=== PATIENT | male | born 1955 | race Caucasian/White ===

== ENCOUNTER 2016-09-29 18:32 | Emergency (ER) | payer MEDICAID ==
[~2016-09-29] VITALS: Ht 165.1 cm; Wt 97.8 kg
[~2016-09-29 18:32] MED LIST: ASPI-557 PO; BUME2TAB18 PO; CARB15DR94 EACH EAR; CARV3.123 PO; CLOB15CR4 TOP; CLOP75TA33 PO; DABI150C PO; DOCU-168 PO; FAMO20TA8 PO; FERR-67 PO; FLUT1DIS ORAL INH; HYDR-347 PO; INSU100V12 SQ; INSU100V13 SQ; LEVO50TA4 PO; LISI-625 PO; LORA-204 PO; LORA0.5T2 PO; PALI9TAB PO; POLY17PO6 PO; POTA-81 PO; SIMV20TA2 PO; THIA100T8 PO; TIOT18CA3 ORAL INH; VITA1TAB21 PO
[2016-09-29 18:35] VITALS: Ht 165.1 cm; Wt 97.8 kg
--- OUTSIDE RECORDS SUMMARY | 2016-09-29 18:36 | XMS REPORT | CCD ---
Author Author SUZY MALLORY Organization Unknown Address [address], [place] [id number] Phone 0 Care Team Providers Care Settlement Processor Name Role Phone ADILENE PEREZ Attending Physician [phone] Vital Signs Unknown or Not Available. Allergies Unknown or Not Available. Procedures Unknown or Not Available. History of Immunizations Immunization Code Date pneumococcal polysaccharide PPV23 33 03/2012 pneumococcal polysaccharide PPV23 33 05/2012 Influenza, seasonal, injectable 141 05/07 Influenza, seasonal, injectable 141 05/27 Problems Unknown or Not Available. Results BASIC METABOLIC - Collect Date/Time: 01/10/2016 09:10 Test Name Code Test Result Test Units Test Ref Range GLUCOSE 353 mg/dL L=70 H=110 BUN 10 mg/dL L=7 H=18 CREATININE 0.79 mg/ dL L=0.60 H=1.30 AGE 61 YEARS GFR 99.7 SODIUM 133 mmol/L L=136 H=145 POTASSIUM 4.3 mmol/ L L=3.5 H=5.1 CHLORIDE 96 mmol/L L=98 H=107 CO2 29 mmol/L L=21 H=32 CALCIUM 8.6 mg/dL L=8.5 H=10.1 PRO B-TYPE NATRIURETIC PEPTIDE - Collect Date/Time: 01/10/2016 09:10 Test Name Code Test Result Test Units Test Ref Range PBNP 194 pg/mL L=0 H=125 Active Medications Unknown or Not Available. Medications Administered During Visit Unknown or Not Available. Encounters Encounter Diagnosis Diagnosis Code Start Date Essential (primary) hypertension I10 Social History Smoking Status Code Start Date End Date Unknown if ever smoked [id number] Patient Decision Aids Unknown or Not Available. Discharge Instructions You were admitted to [facility] on 01/10/2016 10:44 with a principal diagnosis of Essential (primary) hypertension You had the following tests done: BASIC METABOLIC PRO B-TYPE NATRIURETIC PEPTIDE You were discharged from [facility] on 01/10/2016 10:45 Should you have any questions prior to discharge, please contact a member of your healthcare team. If you have left the hospital and have any questions, please contact your primary care physician. Chief Complaint and Reason For Visit Chief Complaint Date of Onset LAB Function Status Unknown or Not Available. Plan of Care Unknown or Not Available. Referral/Transition of Care Unknown or Not Available.
--- OUTSIDE RECORDS SUMMARY | 2016-09-29 18:36 | XMS REPORT | CCD ---
Author Author SUZY MALLORY Organization Unknown Address [address], [place] [id number] Phone 0 Care Team Providers Care Manager Mental Health Name Role Phone ADILENE PEREZ Attending Physician [phone] Vital Signs Unknown or Not Available. Allergies Unknown or Not Available. Procedures Unknown or Not Available. History of Immunizations Immunization Code Date pneumococcal polysaccharide PPV23 33 03/2012 pneumococcal polysaccharide PPV23 33 05/2012 Influenza, seasonal, injectable 141 05/07 Influenza, seasonal, injectable 141 05/27 Problems Unknown or Not Available. Results TSH - Collect Date/Time: 04/03/2016 08:55 Test Name Code Test Result Test Units Test Ref Range TSH 1.17 uIU/mL L=0.36 H=3.74 Active Medications Unknown or Not Available. Medications Administered During Visit Unknown or Not Available. Encounters Encounter Diagnosis Diagnosis Code Start Date Hypothyroidism, unspecified E039 2015 Social History Smoking Status Code Start Date End Date Unknown if ever smoked [id number] Patient Decision Aids Unknown or Not Available. Discharge Instructions You were admitted to [facility] on 04/03/2016 12:01 with a principal diagnosis of Hypothyroidism, unspecified You had the following tests done: TSH You were discharged from [facility] on 04/03/2016 12:01 Should you have any questions prior to [...]
--- OUTSIDE RECORDS SUMMARY | 2016-09-29 18:38 | XMS REPORT | Referral Summary ---
Author Author [facility] Organization [facility] Address Unknown Phone Unavailable Care Team Providers Care Parts Sales Associate Name Role Phone Rivera Plascencia Primary Care Physician [phone] Encounter VC Date(s): 10/20/15 - 10/28/15 [facility] [address] [place] [address] Discharge Disposition: 01-Home or Self Care Attending Physician: Jessica Brown MD Admitting Physician: Joseph Whitehead MD Vital Signs Most recent to 1 oldest [Reference Range]: Temperature Oral 36.1 degC [35.8-37.3 degC] (10/28/15 8:00 AM) Temperature Temporal 36.2 degC Artery [36.3-37.8 *LOW* degC] (10/26/15 11:00 AM) Peripheral Pulse 75 bpm Rate [60-100 bpm] (10/28/15 8:07 AM) Heart Rate Monitored 72 bpm [60-100 bpm] (10/28/15 9:55 AM) Respiratory Rate 18 br/min [14-20 br/min] (10/28/15 9:45 AM) Blood Pressure 105/58 mmHg [90-140/60-90 mmHg] (10/28/15 8:07 AM) Mean Arterial 69 mmHg Pressure, Cuff (10/26/15 12:00 PM) Pulse Rate [60-100 81 bpm bpm] (10/27/15 5:59 PM) SpO2 94 % (10/28/15 9:45 AM) Remote Telemetry Discontinued (10/26/15 8:00 PM) Problem List Condition Effective Dates Status Health Status Informant Acute Active pain(Confirmed) ETOH Active patient abuse(Confirmed) At risk for Active falls(Confirmed)1 At risk for Active infection(Confirmed) 2 At risk for Active injury(Confirmed)3 At risk of pressure Active sore(Confirmed) Atrial Active patient fibrillation(Confirm ed) CVA (cerebral Active patient vascular accident)(Confirmed) COPD (chronic Active patient obstructive pulmonary disease)(Confirmed) CHF (congestive Active patient heart failure)(Confirmed) Coronary artery Active patient disease(Confirmed) Depression(Confirmed Active patient ) Diabetes(Confirmed) Active patient Dyspnea(Confirmed) Active patient Hyperlipidemia(Confi Active patient rmed) HTN Active patient (hypertension)(Confi rmed) Impaired gas Active exchange(Confirmed)4 Impaired skin Active integrity(Confirmed) 5 Diabetic acidosis, Active patient type II(Confirmed) Knowledge Active deficit(Confirmed)6 Methicillin Active resistant Staphylococcus aureus(Confirmed)7 Obesity(Confirmed) Active patient Schizophrenia(Confir Active patient med) Substance Active patient abuse(Confirmed) Tobacco Active patient user(Confirmed) 1This problem was added by Discern Expert. 2Problem added automatically by system based on initiation of At Risk for Infection in Nutrition Plan of Care 3Problem added automatically by system based on initiation of Risk for Injury Plan of Care 4Problem added automatically by system based on initiation of Impaired Gas Exchange Plan of Care 5Problem added automatically by system based on initiation of Impaired Skin Integrity Plan of Care 6Problem added automatically by system based on initiation of Knowledge Deficit Plan of Care 7Nares from NOT FOUND collected 10/04/15 5:23:00 CDT Allergies, Adverse Reactions, Alerts No Known Allergies Medications albuterol 5 mg/mL (0.5%) inhalation solution 2.5 mg 0.5 mL, NEB, q2hr (scheduled), Other (See Comment), # 180 mL, 0 Refill(s) , other reason (Rx) Start Date: 10/28/15 Status: Ordered albuterol 5 mg/mL (0.5%) inhalation solution 2.5 mg 0.5 mL, NEB, [id number], # 60 mL, 0 Refill(s) Start Date: 10/28/15 Status: Ordered aspirin 81 mg oral delayed release tablet 81 mg 1 tabs, Oral, Daily, 0 Refill(s) Start Date: 10/13/15 Status: Ordered Ativan 0.5 mg oral tablet 0.5 mg, Oral, BID, anxiety, X 30 days, # 60 tabs, 0 Refill(s) Start Date: 10/28/15 Stop Date: 11/27/15 Status: Ordered bumetanide 2 mg oral tablet 2 mg 1 tabs, Oral, BID, # 30 tabs, 0 Refill(s), other reason (Rx) Start Date: 10/28/15 Status: Ordered clobetasol 0.05% topical cream 1 hui, Topical, BID, 0 Refill(s) Start Date: 10/20/15 Status: Ordered Coreg 3.125 mg, Oral, BID, 0 Refill(s) Start Date: 10/03/15 Status: Ordered ferrous sulfate 325 mg (65 mg elemental iron) oral delayed release tablet 650 mg 2 tabs, Oral, Daily, 0 Refill(s) Start Date: 10/13/15 Status: Ordered ipratropium 500 mcg/2.5 mL inhalation solution 0.5 mg 2.5 mL, NEB, q2hr (scheduled), Other (See Comment), # 900 mL, 0 Refill(s) , other reason (Rx) Start Date: 10/28/15 Status: Ordered ipratropium 500 mcg/2.5 mL inhalation solution 0.5 mg 2.5 mL, NEB, [id number], # 300 mL, 0 Refill(s), other reason (Rx) Start Date: 10/28/15 Status: Ordered Levemir 100 units/mL subcutaneous solution 20 units, SubCutaneous, Bedtime (once a day), # 15 mL, 0 Refill(s), other reason (Rx) Start Date: 10/28/15 Stop Date: 11/27/15 Status: Ordered lisinopril 5 mg oral tablet 5 mg 1 tabs, Oral, Bedtime (once a day), # 30 tabs, 0 Refill(s), other reason ( Rx) Start Date: 10/28/15 Status: Ordered MiraLax oral powder for reconstitution 17 g, Oral, BID, dissolve in water before taking, X 14 days, # 476 g, 0 Refill(s ), other reason (Rx) Start Date: 10/28/15 Stop Date: 11/11/15 Status: Ordered [place] 7.5 mg-325 mg oral tablet 1 tabs, Oral, q6hr, Pain Severe (7-10), X 14 days, # 56 tabs, 0 Refill(s) Start Date: 10/28/15 Stop Date: 11/11/15 Status: Ordered NovoLOG 100 units/mL subcutaneous solution 5 units, SubCutaneous, TIDWM, # 15 mL, 0 Refill(s), other reason (Rx) Start Date: 10/28/15 Status: Ordered potassium chloride 20 mEq oral tablet, extended release 20 mEq 1 tabs, Oral, BIDWM, # 60 tabs, 0 Refill(s), other reason (Rx) Start Date: 10/28/15 Status: Ordered Pradaxa 150 mg oral capsule 150 mg 1 caps, Oral, BID, 0 Refill(s) Start Date: 10/13/15 Status: Ordered predniSONE 20 mg oral tablet See Instructions, 1 tabs Oral Daily for 3 days then half a tablet for 3 days then stop, # 4.5 tabs, 0 Refill(s), other reason (Rx) Start Date: 10/28/15 Stop Date: 11/02/15 Status: Ordered Senokot S 50 mg-8.6 mg oral tablet 2 tabs, Oral, Daily, X 14 days, # 28 tabs, 0 Refill(s), other reason (Rx) Start Date: 10/28/15 Stop Date: 11/11/15 Status: Ordered Synthroid 50 mcg, Oral, Daily, 0 Refill(s) Start Date: 10/03/15 Status: Ordered Vitamin B1 100 mg, Daily, 0 Refill(s) Start Date: 11/26/14 Status: Ordered Zocor 20 mg oral tablet 20 mg 1 tabs, Oral, Bedtime (once a day), # 30 tabs, 0 Refill(s) Start Date: 11/05/14 Status: Ordered ZyPREXA 5 mg oral tablet 5 mg 1 tabs, Oral, Bedtime (once a day), # 30 tabs, 0 Refill(s) Start Date: 10/28/15 Status: Ordered Results Blood Gases Most recent to 1 oldest [Reference Range]: pH [7.35-7.45] 7.39 (10/24/15 9:56 AM) pCO2 Art [35-45 57 mmHg mmHg] *HI* (10/24/15 9:56 AM) Bicarbonate [22-26 34 mEq/L mEq/L] *HI* (10/24/15 9:56 AM) Base Excess Art 7 [0-2] *HI* (10/24/15 9:56 AM) O2 Sat Art 93.6 % [90.0-97.0 %] (10/24/15 9:56 AM) pO2 Art [80-100 69 mmHg mmHg] *LOW* (10/24/15 9:56 AM) LPM Art 6.0 L/min (10/24/15 9:56 AM) O2 Panel Nasal Cannula (10/24/15 9:56 AM) Spec Site Radial-R (10/24/15 9:56 AM) Hematology Most recent to 1 oldest [Reference Range]: WBC [4.8-10.8 11.8 10*3/uL 10*3/uL] *HI* (10/28/15 5:29 AM) RBC [4.60-6.20] 3.40 *LOW* (10/28/15 5:29 AM) Hgb [14.0-18.0 10.8 gm/dL gm/dL] *LOW* (10/28/15 5:29 AM) Hct [42.0-52.0 %] 34.3 % *LOW* (10/28/15 5:29 AM) MCV [82.0-99.0 fL] 100.9 fL *HI* (10/28/15 5:29 AM) MCH [27.0-32.0 pg] 31.8 pg (10/28/15 5:29 AM) MCHC [32.0-36.0 31.5 gm/dL gm/dL] *LOW* (10/28/15 5:29 AM) RDW [11.5-14.5 %] 21.5 % *HI* (10/28/15 5:29 AM) Platelet [150-400 269 10*3/uL 10*3/uL] (10/28/15 5:29 AM) MPV [9.4-12.3 fL] 10.4 fL (10/28/15 5:29 AM) Immature 0.4 % Granulocytes (10/23/15 4:25 AM) [0.0-1.0 %] Neutrophils [51-75 87 % %] *HI* (10/25/15 3:25 AM) Band Man [0-8 %] 1 % (10/24/15 4:21 AM) [place] Man [0-1 %] 1 % (10/24/15 4:21 AM) Lymphocytes [20-46 12 % %] *LOW* (10/25/15 3:25 AM) Monocytes [4-11 %] 1 % *LOW* (10/25/15 3:25 AM) Eosinophils [0-4 %] 0 % (10/25/15 3:25 AM) Basophils [0-2 %] 0 % (10/25/15 3:25 AM) Neutro Absolute 9.14 10*3 [1.90-7.00 10*3] *HI* (10/25/15 3:25 AM) Lymph Absolute 1.26 10*3 [0.80-3.30 10*3] (10/25/15 3:25 AM) [place] Absolute 0.11 10*3 [0.30-1.00 10*3] *LOW* (10/25/15 3:25 AM) Eos Absolute 0.00 10*3 [0.00-0.50 10*3] (10/25/15 3:25 AM) Baso Absolute 0.00 10*3 [0.00-0.20 10*3] (10/25/15 3:25 AM) Toxic Gran Occasional *ABN* (10/25/15 3:25 AM) Dohle Bodies Occasional *ABN* (10/22/15 4:58 AM) Giant Platelets Occasional *ABN* (10/22/15 4:58 AM) Polychrom Occasional *ABN* (10/25/15 3:25 AM) Macrocyte Present *ABN* (10/24/15 4:21 AM) Stippled RBC Occasional *ABN* (10/25/15 3:25 AM) Nucleated RBC 0.0 /100 WBC Automated [0 /100 (10/25/15 3:25 AM) WBC] Differential Manual *ABN* (10/25/15 3:25 AM) Chemistry Most recent to 1 oldest [Reference Range]: Sodium Lvl [136-144 140 mEq/L mEq/L] (10/28/15 5:29 AM) Potassium Lvl 4.0 mEq/L [3.6-5.1 mEq/L] (10/28/15 5:29 AM) Chloride [99-109 100 mEq/L mEq/L] (10/28/15 5:29 AM) CO2 [22-32 mEq/L] 32 mEq/L (10/28/15 5:29 AM) AGAP [3-20] 8 (10/28/15 5:29 AM) BUN [4-20 mg/dL] 17 mg/dL (10/28/15 5:29 AM) Glucose Lvl [70-100 172 mg/dL mg/dL] *HI* (10/28/15 5:29 AM) Creatinine Lvl 0.82 mg/dL [0.64-1.27 mg/dL] (10/28/15 5:29 AM) eGFR [>60] >60 1 (10/28/15 5:29 AM) Calcium Lvl 8.1 mg/dL [8.6-10.0 mg/dL] *LOW* (10/28/15 5:29 AM) Albumin Lvl [3.5-4.8 2.8 gm/dL gm/dL] *LOW* (10/28/15 5:29 AM) Total Protein 7.1 gm/dL [6.1-7.9 gm/dL] (10/20/15 4:22 PM) Globulin [1.9-4.3 4.0 gm/dL gm/dL] (10/20/15 4:22 PM) ALT [17-63 U/L] 45 U/L (10/20/15 4:22 PM) AST [15-41 U/L] 40 U/L (10/20/15 4:22 PM) Alk Phos [26-104 116 U/L U/L] *HI* (10/20/15 4:22 PM) Bili Total [0.2-1.2 0.5 mg/dL 2 mg/dL] (10/20/15 4:22 PM) Magnesium Lvl 2.2 mg/dL [1.8-2.5 mg/dL] (10/23/15 4:25 AM) Phosphorus [2.4-4.7 4.3 mg/dL 3 mg/dL] (10/28/15 5:29 AM) BNP [0-99 pg/mL] 1408 pg/mL *HI* (10/22/15 4:58 AM) Lactic Acid Lvl 0.9 mEq/L [0.5-2.2 mEq/L] (10/20/15 4:27 PM) Blood Glucose, 172 mg/dL Capillary [70-100 *HI* mg/dL] (10/28/15 10:08 AM) Blood Glucose, High Capillary Out of (10/21/15 8:00 PM) Range 1Result Comment: Multiply eGFR results by 1.21 for race. 2Result Comment: Naproxen, specifically the metabolite O-desmethylnaproxen, may cause spurious elevation in Total Bilirubin levels. 3Result Comment: High dosages of liposomal Amphotericin B (AmBisome) therapy or other drug preparations that use a liposomal envelope to facilitate drug delivery may cause falsely elevated results for phosphorus. Therapeutic Drug Monitoring Most recent to 1 oldest [Reference Range]: Vancomycin Tr 29.5 ug/mL 1 [10.0-20.0 ug/mL] *HI* (10/25/15 8:22 AM) 1Result Comment: Trough vancomycin concentrations of 15-20 mcg/mL are recommended for complicated infections such as bacteremia, osteomyelitis, endocarditis, meningitis, and hospital acquired pneumonia. Urinalysis Most recent to 1 [Reference Range]: UA Color Colorless (10/20/15 4:22 PM) UA Appear Clear (10/20/15 4:22 PM) UA pH [5.0-8.0] 7.0 (10/20/15 4:22 PM) UA Leuk Est Negative [Negative] (10/20/15 4:22 PM) UA Nitrite Negative [Negative] (10/20/15 4:22 PM) UA Protein Negative [Negative] (10/20/15 4:22 PM) UA Glucose Negative [Negative] (10/20/15 4:22 PM) UA Ketones Negative [Negative] (10/20/15 4:22 PM) UA Urobilinogen Negative [<1.0] (10/20/15 4:22 PM) UA Bili [Negative] Negative (10/20/15 4:22 PM) UA Blood [Negative] Negative (10/20/15 4:22 PM) UA Spec Grav 1.005 [1.003-1.030] (10/20/15 4:22 PM) Type Not Specified (10/20/15 4:22 PM) Microbiology Reports TEST: Wound Culture and Smear STATUS: Auth (Verified) BODY SITE: Leg, Left SOURCE: Wound COLLECTED DATE/TIME: 10/21/15 2:30 AM Wound Culture No pathogens isolated Normal skin calos present TEST: Anaerobic Culture STATUS: Auth (Verified) BODY SITE: Leg, Left SOURCE: Wound COLLECTED DATE/TIME: 10/21/15 2:30 AM Anaerobic Culture No anaerobes isolated TEST: Blood Culture STATUS: Auth (Verified) BODY SITE: SOURCE: Blood COLLECTED DATE/TIME: 10/20/15 5:34 PM Blood Culture No growth after 5 days of incubation. TEST: Blood Culture1 STATUS: Auth (Verified) BODY SITE: SOURCE: Blood COLLECTED DATE/TIME: 10/20/15 4:41 PM Blood Culture PCR negative for Staph aureus. - Differential time to positive: 52.1 hours - A blood culture drawn through a catheter with a differential time to positivity at least 2 hours sooner than one drawn from a peripheral vein at the same time suggests a catheter-related bloodstream infection. - Staphylococcus, coagulase negative probable contaminant; no further work-up will be performed. ORGANISM:Staphylococcus coagulase negative INTERPRETIVE DATA 1Critical value called to and read back by Julia Garduno RN 00:52 10/23/2015 Immunizations No data available for this section Procedures Procedure Date Related Diagnosis Body Site Arterial puncture, withdrawal of blood for 10/24/15 diagnosis Arterial puncture, withdrawal of blood for 10/20/15 diagnosis Bypass Graft Coronary Artery1 10/04/15 [place] [facility] Endoscopic (Left)2 10/04/15 Carotid endarterectomy3 Colonoscopy 1auto-populated from documented surgical case 2auto-populated from documented surgical case 3LICA Social History Social History Type Response Smoking Status Current every day smoker; Type: Cigarettes; Tobacco use per day: Less than Pack; Number of years: 46 Assessment and Plan No data available for this section
--- OUTSIDE RECORDS SUMMARY | 2016-09-29 18:38 | XMS REPORT | Referral Summary ---
Author Author [facility] Organization [facility] Address Unknown Phone Unavailable Care Team Providers Care Emd Special Education Teacher Name Role Phone Rivera Plascencia Primary Care Physician [phone] Encounter VC Date(s): 10/04/15 - 10/13/15 [facility] [address] [place] [address] Discharge Disposition: 01-Home or Self Care Attending Physician: Alexsander Leonardo MD Admitting Physician: Alexsander Leonardo MD Vital Signs Most recent to 1 oldest [Reference Range]: Temperature Temporal 36.6 degC Artery [36.3-37.8 (10/13/15 4:00 PM) degC] Apical Heart Rate 127 bpm [60-100 bpm] *HI* (10/09/15 12:25 PM) Peripheral Pulse 87 bpm Rate [60-100 bpm] (10/13/15 8:30 AM) Peripheral Pulse 79 bpm Rate with Activity (10/12/15 1:59 PM) Heart Rate Monitored 82 bpm [60-100 bpm] (10/13/15 4:12 PM) Respiratory Rate 18 br/min [14-20 br/min] (10/13/15 4:06 PM) Blood Pressure 106/61 mmHg [90-140/60-90 mmHg] (10/13/15 4:00 PM) Systolic Blood 97 mmHg Pressure with (10/12/15 1:59 PM) Activity Diastolic Blood 68 mmHg Pressure with (10/12/15 1:59 PM) Activity Mean Arterial 79 mmHg Pressure, Cuff (10/13/15 4:00 PM) Blood Pressure 134/61 mmHg Invasive (10/05/15 4:00 PM) [90-140/60-90 mmHg] Mean Arterial 87 mmHg Pressure, Invasive (10/05/15 4:00 PM) Systolic Blood 131 mmHg 1 Pressure Invasive 2 (10/04/15 5:29 AM) [90-140 mmHg] Diastolic Blood 77 mmHg 2 Pressure Invasive 2 (10/04/15 5:29 AM) [60-90 mmHg] Pulse Rate [60-100 97 bpm bpm] (10/07/15 4:09 PM) SpO2 94 % (10/13/15 4:00 PM) Remote Telemetry Ongoing (10/08/15 8:00 PM) 1Result Comment: left 2Result Comment: left Problem List Condition Effective Dates Status Health Status Informant Acute Active pain(Confirmed) ETOH Active patient abuse(Confirmed) At risk for Active falls(Confirmed)1 At risk for Active injury(Confirmed)2 At risk of pressure Active sore(Confirmed) Atrial Active patient fibrillation(Confirm ed) CVA (cerebral Active patient vascular accident)(Confirmed) COPD (chronic Active patient obstructive pulmonary disease)(Confirmed) CHF (congestive Active patient heart failure)(Confirmed) Coronary artery Active patient disease(Confirmed) Depression(Confirmed Active patient ) Diabetes(Confirmed) Active patient Dyspnea(Confirmed) Active patient Hyperlipidemia(Confi Active patient rmed) HTN Active patient (hypertension)(Confi rmed) Impaired gas Active exchange(Confirmed)3 Diabetic acidosis, Active patient type II(Confirmed) Knowledge Active deficit(Confirmed)4 Methicillin Active resistant Staphylococcus aureus(Confirmed)5 Obesity(Confirmed) Active patient Schizophrenia(Confir Active patient med) Substance Active patient abuse(Confirmed) Tobacco Active patient user(Confirmed) 1This problem was added by Discern Expert. 2Problem added automatically by system based on initiation of Risk for Injury Plan of Care 3Problem added automatically by system based on initiation of Impaired Gas Exchange Plan of Care 4Problem added automatically by system based on initiation of Knowledge Deficit Plan of Care 5Nares from NOT FOUND collected 10/04/15 5:23:00 CDT Allergies, Adverse Reactions, Alerts No Known Allergies Medications Advair HFA 115 mcg-21 mcg/inh inhalation aerosol 2 puffs, Inhalation, BID, 0 Refill(s) Start Date: 10/13/15 Status: Ordered Advair HFA 230 mcg-21 mcg/inh inhalation aerosol 2 puffs, Inhalation, BID, 0 Refill(s) Start Date: 11/05/14 Status: Ordered aspirin 81 mg oral delayed release tablet 81 mg 1 tabs, Oral, Daily, 0 Refill(s) Start Date: 10/13/15 Status: Ordered Bumex 1 mg 1 tabs, Oral, BID, 0 Refill(s) Start Date: 10/13/15 Status: Ordered Ceftin 500 mg oral tablet 500 mg 1 tabs, Oral, BID, X 5 days, # 10 tabs, 0 Refill(s), other reason (Rx) Start Date: 10/12/15 Stop Date: 10/17/15 Status: Ordered Coreg 3.125 mg, Oral, BID, 0 Refill(s) Start Date: 10/03/15 Status: Ordered DuoNeb 0.5 mg-2.5 mg/3 mL inhalation solution See Instructions, USE ONE vial THREE TIMES DAILY DIRECTED, # 180 mL, eRx: Pharmacy - [place], [place], USE ONE vial THREE TIMES DAILY DIRECTED Start Date: 04/08/15 Status: Ordered ferrous sulfate 325 mg (65 mg elemental iron) oral delayed release tablet 650 mg 2 tabs, Oral, Daily, 0 Refill(s) Start Date: 10/13/15 Status: Ordered folic acid 1 mg oral tablet 1 mg 1 tabs, Oral, Daily, # 30 tabs, 0 Refill(s) Start Date: 11/05/14 Status: Ordered guaiFENesin 600 mg, Oral, q12hr, 0 Refill(s) Start Date: 11/05/14 Status: Ordered Invega 6 mg, Oral, Bedtime (once a day), 0 Refill(s) Start Date: 10/03/15 Status: Ordered Levemir 100 units/mL subcutaneous solution 25 units, SubCutaneous, Bedtime (once a day), 0 Refill(s) Start Date: 10/13/15 Status: Ordered minocycline 100 mg oral tablet 100 mg 1 tabs, Oral, q12hr, X 5 days, # 10 tabs, 0 Refill(s), other reason (Rx) Start Date: 10/12/15 Stop Date: 10/17/15 Status: Ordered MiraLax g, Oral, Daily, 0 Refill(s) Start Date: 11/05/14 Status: Ordered MiraLax 17 g 1 packets, Oral, Daily, 0 Refill(s) Start Date: 10/13/15 Status: Ordered multivitamin Daily, 0 Refill(s) Start Date: 11/05/14 Status: Ordered NovoLOG 100 units/mL subcutaneous solution 14 units, SubCutaneous, TIDWM, 0 Refill(s) Start Date: 10/13/15 Status: Ordered nystatin 100,000 units/g topical powder 1 hui, Topical, TID, 0 Refill(s) Start Date: 11/26/14 Status: Ordered Pradaxa 150 mg oral capsule 150 mg 1 caps, Oral, BID, 0 Refill(s) Start Date: 10/13/15 Status: Ordered Spiriva 18 mcg inhalation capsule 18 mcg 1 Each, Inhalation, Daily, use two inhalations of one capsule for each dose, # 30 Each, 0 Refill(s) Start Date: 11/05/14 Status: Ordered Synthroid 50 mcg, Oral, Daily, 0 Refill(s) Start Date: 10/03/15 Status: Ordered Ventolin HFA 90 mcg/inh inhalation aerosol 1 puffs, Inhalation, BID, as needed for wheezing, # 18 g, 0 Refill(s) Start Date: 11/05/14 Status: Ordered Vitamin B1 100 mg, Daily, 0 Refill(s) Start Date: 11/26/14 Status: Ordered Zocor 20 mg oral tablet 20 mg 1 tabs, Oral, Bedtime (once a day), # 30 tabs, 0 Refill(s) Start Date: 11/05/14 Status: Ordered Results Blood Gases Most recent to 1 oldest [Reference Range]: pH [7.35-7.45] 7.40 (10/11/15 9:11 PM) PCO2 Arterial POC 52 mmHg [35-45 mmHg] *HI* (10/04/15 11:24 AM) pCO2 Art [35-45 62 mmHg mmHg] *HHI* (10/11/15 9:11 PM) CO2 Totl Art [23-27 25 mEq/L mEq/L] (10/04/15 11:24 AM) Bicarbonate [22-26 38 mEq/L mEq/L] *HI* (10/11/15 9:11 PM) Bicarbonate Arterial 24 mEq/L POC [22-26 mEq/L] (10/04/15 11:24 AM) Base Excess Arterial -3 POC [0-2] *LOW* (10/04/15 11:24 AM) Base Excess Art 11 [0-2] *HI* (10/11/15 9:11 PM) O2 Sat Art 96.1 % [90.0-97.0 %] (10/11/15 9:11 PM) pO2 Art [80-100 80 mmHg mmHg] (10/11/15 9:11 PM) O2 Saturation 94.0 % Arterial POC (10/04/15 11:24 AM) [90.0-97.0 %] pH Arterial POC 7.27 [7.35-7.45] *LOW* (10/04/15 11:24 AM) PO2 Arterial POC 83 mmHg [80-100 mmHg] (10/04/15 11:24 AM) LPM Art 5.0 L/min (10/11/15 9:11 PM) O2 Panel Nasal Cannula (10/11/15 9:11 PM) Vent Mode AC (10/05/15 5:48 AM) Set Vt 500 mL (10/05/15 5:48 AM) Set Rate 16 br/min (10/05/15 5:48 AM) FiO2 Art [0-100] 45 (10/05/15 8:25 AM) PEEP 5.0 (10/05/15 8:25 AM) Inspiratory Time Art 0.90 seconds (10/05/15 5:48 AM) Tubing Compensation 100 % (10/05/15 8:25 AM) Total Rate 16 br/min (10/04/15 12:45 PM) Spon Vt 519 mL (10/04/15 12:45 PM) Spec Site Radial-R (10/11/15 9:11 PM) Hematology Most recent to 1 oldest [Reference Range]: WBC [4.8-10.8 11.5 10*3/uL 10*3/uL] *HI* (10/13/15 7:26 AM) RBC [4.60-6.20] 2.53 *LOW* (10/13/15 7:26 AM) Hgb [14.0-18.0 7.8 gm/dL gm/dL] *LOW* (10/13/15 7:26 AM) Hct [42.0-52.0 %] 24.7 % *LOW* (10/13/15 7:26 AM) MCV [82.0-99.0 fL] 97.6 fL (10/13/15 7:26 AM) MCH [27.0-32.0 pg] 30.8 pg (10/13/15 7:26 AM) MCHC [32.0-36.0 31.6 gm/dL gm/dL] *LOW* (10/13/15 7:26 AM) RDW [11.5-14.5 %] 20.3 % *HI* (10/13/15 7:26 AM) Platelet [150-400 231 10*3/uL 10*3/uL] (10/13/15 7:26 AM) MPV [9.4-12.3 fL] 9.8 fL (10/13/15 7:26 AM) Neutrophils [51-75 74 % %] (10/06/15 4:04 AM) Band Man [0-8 %] 13 % *HI* (10/06/15 4:04 AM) Myelo Man 2 % (10/04/15 5:46 AM) Lymphocytes [20-46 7 % %] *LOW* (10/06/15 4:04 AM) Monocytes [4-11 %] 6 % (10/06/15 4:04 AM) Eosinophils [0-4 %] 0 % (10/06/15 4:04 AM) Basophils [0-2 %] 0 % (10/06/15 4:04 AM) Neutro Absolute 13.92 10*3 [1.90-7.00 10*3] *HI* (10/06/15 4:04 AM) Lymph Absolute 1.12 10*3 [0.80-3.30 10*3] (10/06/15 4:04 AM) [place] Absolute 0.96 10*3 [0.30-1.00 10*3] (10/06/15 4:04 AM) Eos Absolute 0.02 10*3 [0.00-0.50 10*3] (10/06/15 4:04 AM) Baso Absolute 0.02 10*3 [0.00-0.20 10*3] (10/06/15 4:04 AM) Toxic Gran Occasional *ABN* (10/05/15 4:10 AM) Dohle Bodies Occasional *ABN* (10/05/15 4:10 AM) Polychrom Occasional *ABN* (10/05/15 4:10 AM) Nucleated RBC 0.3 /100 WBC Automated [0 /100 (10/06/15 4:04 AM) WBC] Differential Reviewed (10/06/15 4:04 AM) Coagulation Most recent to 1 oldest [Reference Range]: INR [0.9-1.2] 1.1 (10/09/15 2:28 PM) PTT [25.0-35.0 53.0 seconds seconds] *HI* (10/10/15 5:23 AM) Fibrinogen Lvl 178 mg/dL [187-520 mg/dL] *LOW* (10/04/15 10:50 AM) Chemistry Most recent to 1 oldest [Reference Range]: Sodium Lvl [136-144 132 mEq/L mEq/L] *LOW* (10/13/15 7:26 AM) Potassium Lvl 3.5 mEq/L [3.6-5.1 mEq/L] *LOW* (10/13/15 7:26 AM) Chloride [99-109 92 mEq/L mEq/L] *LOW* (10/13/15 7:26 AM) CO2 [22-32 mEq/L] 33 mEq/L *HI* (10/13/15 7:26 AM) AGAP [3-20] 7 (10/13/15 7:26 AM) BUN [4-20 mg/dL] 13 mg/dL (10/13/15 7:26 AM) Glucose Lvl [70-100 128 mg/dL mg/dL] *HI* (10/13/15 7:26 AM) Creatinine Lvl 0.75 mg/dL [0.64-1.27 mg/dL] (10/13/15 7:26 AM) eGFR [>60] >60 1 (10/13/15 7:26 AM) Calcium Lvl 8.2 mg/dL [8.6-10.0 mg/dL] *LOW* (10/13/15 7:26 AM) Albumin Lvl [3.5-4.8 2.6 gm/dL gm/dL] *LOW* (10/08/15 2:41 PM) Magnesium Lvl 1.9 mg/dL [1.8-2.5 mg/dL] (10/13/15 7:26 AM) Phosphorus [2.4-4.7 3.1 mg/dL 2 mg/dL] (10/08/15 2:41 PM) Calcium Ionized 1.12 mmol/L [1.19-1.41 mmol/L] *LOW* (10/09/15 4:29 AM) Prealbumin [18-38 26 mg/dL mg/dL] (10/04/15 5:46 AM) Sodium Arterial NPT 141 mEq/L [136-144 mEq/L] (10/04/15 11:24 AM) Potassium Arterial 3.4 mEq/L 3 NPT [3.6-5.1 mEq/L] *LOW* (10/04/15 11:24 AM) Calcium Ionized 1.17 mmol/L Arterial NPT *LOW* [1.19-1.41 mmol/L] (10/04/15 11:24 AM) HCT Arterial NPT 26.0 % (10/04/15 11:24 AM) HGB Arterial NPT 8.8 gm/dL (10/04/15 11:24 AM) Arterial Glucose NPT 170 mg/dL [70-100 mg/dL] *HI* (10/04/15 11:24 AM) Activated Clotting 116 seconds Time NPT [100-146 (10/04/15 10:39 AM) seconds] Blood Glucose, 121 mg/dL Capillary [70-100 *HI* mg/dL] (10/13/15 4:12 PM) Hgb A1c [4.1-5.6 %] 8.2 % *HI* (10/04/15 5:45 AM) eAvg Glucose 188.6 mg/dL (10/04/15 5:23 AM) 1Result Comment: Multiply eGFR results by 1.21 for race. 2Result Comment: High dosages of liposomal Amphotericin B (AmBisome) therapy or other drug preparations that use a liposomal envelope to facilitate drug delivery may cause falsely elevated results for phosphorus. 3Result Comment: This test was performed on a whole blood specimen. The presence or absence of hemolysis cannot be assessed. Hemolysis can falsely elevate potassium levels. Normals are for venous specimens only. Therapeutic Drug Monitoring Most recent to 1 oldest [Reference Range]: Vancomycin Tr 15.3 ug/mL 1 [10.0-20.0 ug/mL] (10/12/15 8:04 AM) 1Result Comment: Trough vancomycin concentrations of 15-20 mcg/mL are recommended for complicated infections such as bacteremia, osteomyelitis, endocarditis, meningitis, and hospital acquired pneumonia. Urinalysis Most recent to 1 oldest [Reference Range]: UA Color Yellow (10/04/15 5:20 AM) UA Appear Sl Cloudy (10/04/15 5:20 AM) UA pH [5.0-8.0] 6.0 (10/04/15 5:20 AM) UA Leuk Est Negative [Negative] (10/04/15 5:20 AM) UA Nitrite Negative [Negative] (10/04/15 5:20 AM) UA Protein Negative [Negative] (10/04/15 5:20 AM) UA Glucose Negative [Negative] (10/04/15 5:20 AM) UA Ketones Negative [Negative] (10/04/15 5:20 AM) UA Urobilinogen 2.0 mg/dL [<1.0 mg/dL] *ABN* (10/04/15 5:20 AM) UA Bili [Negative] Negative (10/04/15 5:20 AM) UA Blood [Negative] Negative (10/04/15 5:20 AM) UA Spec Grav 1.020 [1.003-1.030] (10/04/15 5:20 AM) Type Clean Catch (10/04/15 5:20 AM) Blood Bank Results Most recent to 1 oldest [Reference Range]: ABO/Rh A POS (10/13/15 8:38 AM) Antibody Screen Tube NEG (10/13/15 8:38 AM) Microbiology Reports TEST: Sputum Culture and Smear STATUS: Auth (Verified) BODY SITE: SOURCE: Sputum COLLECTED DATE/TIME: 10/08/15 8:22 PM Sputum Culture and Smear Haemophilus influenzae predominant amount Beta-lactamase promos executive producer: Consider extended spectrum aminopenicillin, second or third generation cephalosporin for treatment. ORGANISM:Haemophilus influenzae TEST: MRSA Screen Culture1 STATUS: Auth (Verified) BODY SITE: SOURCE: Nares COLLECTED DATE/TIME: 10/04/15 5:20 AM MRSA Screen Culture Staphylococcus aureus Screening test indicates resistance to methicillin moderate amount ORGANISM:Staphylococcus aureus INTERPRETIVE DATA 1Result called to Mely Palmer RN 10/05/2015 09:19 Immunizations No data available for this section Procedures Procedure Date Related Diagnosis Body Site Replacement, complete, of a peripherally 10/13/15 inserted central venous catheter (PICC), without subcutaneous port or pump, through same venous access Insertion of peripherally inserted central 10/12/15 venous catheter (PICC), without subcutaneous port or pump; age 5 years or older.. Arterial puncture, withdrawal of blood for 10/11/15 diagnosis Arterial puncture, withdrawal of blood for 10/08/15 diagnosis Bypass Graft Coronary Artery1 10/04/15 [place] [facility] Endoscopic (Left)2 10/04/15 Carotid endarterectomy3 Colonoscopy 1auto-populated from documented surgical case 2auto-populated from documented surgical case 3LICA Social History Social History Type Response Smoking Status Current every day smoker; Type: Cigarettes; Tobacco use per day: Less than Pack; Number of years: 46 Assessment and Plan No data available for this section
--- OUTSIDE RECORDS SUMMARY | 2016-09-29 18:39 | XMS REPORT | Referral Summary ---
Author Author [facility] Organization [facility] Address Unknown Phone Unavailable Care Team Providers Care Copper Roller Handler Printing Name Role Phone Rivera Plascencia Primary Care Physician [phone] Encounter VC Date(s): 11/09/14 - 11/09/14 [facility] [address] [place] [id number] Discharge Disposition: 01-Home or Self Care Attending Physician: Magdalena Plascencia MD Admitting Physician: Magdalena Plascencia MD Vital Signs No data available for this section Problem List Condition Effective Dates Status Health Status Informant Obesity(Confirmed) Active patient Tobacco Active patient user(Confirmed) Allergies, Adverse Reactions, Alerts No Known Medication Allergies Medications Advair HFA 230 mcg-21 mcg/inh inhalation aerosol puffs, Inhalation, BID, 0 Refill(s) Start Date: 11/05/14 Status: Ordered amiodarone 200 mg oral tablet See Instructions, 400mg TID x 7, then 200mg BID x 7, then 200mg daily, 0 Refill( s) Start Date: 11/26/14 Status: Ordered Ativan 1 mg oral tablet 1 mg 1 tabs, Oral, Bedtime (once a day), [facility], # 90 tabs, 5 Refill(s) Start Date: 12/06/14 Status: Ordered bisacodyl 10 mg rectal suppository 10 mg 1 supp, Rectal, Daily, as needed for constipation, # 10 supp, 0 Refill(s) Start Date: 11/05/14 Status: Ordered bumetanide 1 mg oral tablet 1 mg 1 tabs, Oral, TID, 0 Refill(s) Start Date: 11/26/14 Status: Ordered DuoNeb 0.5 mg-2.5 mg/3 mL inhalation solution See Instructions, USE ONE vial THREE TIMES DAILY DIRECTED, # 180 mL, eRx: [facility] - [place], [place], USE ONE vial THREE TIMES DAILY DIRECTED Start Date: 04/08/15 Status: Ordered Effexor XR 75 mg oral capsule, extended release 75 mg 1 caps, Oral, Daily, # 30 caps, 0 Refill(s) Start Date: 11/05/14 Status: Ordered famotidine 20 mg oral tablet mg tabs, Oral, BID, 0 Refill(s) Start Date: 11/05/14 Status: Ordered folic acid 1 mg oral tablet 1 mg 1 tabs, Oral, Daily, # 30 tabs, 0 Refill(s) Start Date: 11/05/14 Status: Ordered guaiFENesin 600 mg, Oral, q12hr, 0 Refill(s) Start Date: 11/05/14 Status: Ordered Invega 9 mg oral tablet, extended release 9 mg 1 tabs, Oral, qAM, # 30 tabs, 0 Refill(s) Start Date: 11/05/14 Status: Ordered Klor-Con M20 20 mEq, Oral, BID, 0 Refill(s) Start Date: 11/26/14 Status: Ordered lisinopril 5 mg oral tablet mg tabs, Oral, Daily, 0 Refill(s) Start Date: 11/05/14 Status: Ordered MiraLax g, Oral, Daily, 0 Refill(s) Start Date: 11/05/14 Status: Ordered multivitamin Daily, 0 Refill(s) Start Date: 11/05/14 Status: Ordered [place] 5 mg-325 mg oral tablet 1 tabs, Oral, BID, FAX TO [facility] ., # 60 tabs, 0 Refill(s) Start Date: 05/10/15 Status: Ordered nystatin 100,000 units/g topical powder 1 hui, Topical, TID, 0 Refill(s) Start Date: 11/26/14 Status: Ordered Spiriva 18 mcg inhalation capsule 18 mcg 1 Each, Inhalation, Daily, use two inhalations of one capsule for each dose, # 30 Each, 0 Refill(s) Start Date: 11/05/14 Status: Ordered traZODone 100 mg oral tablet 100 mg 1 tabs, Oral, Bedtime (once a day), 0 Refill(s) Start Date: 11/05/14 Status: Ordered Ventolin HFA 90 mcg/inh inhalation aerosol 1 puffs, Inhalation, BID, as needed for wheezing, # 18 g, 0 Refill(s) Start Date: 11/05/14 Status: Ordered Vitamin B1 100 mg, Daily, 0 Refill(s) Start Date: 11/26/14 Status: Ordered Xarelto 20 mg oral tablet 20 mg 1 tabs, Oral, qPM, # 30 tabs, 0 Refill(s) Start Date: 11/26/14 Status: Ordered Zocor 20 mg oral tablet 20 mg 1 tabs, Oral, Bedtime (once a day), # 30 tabs, 0 Refill(s) Start Date: 11/05/14 Status: Ordered ZyrTEC 10 mg oral tablet 10 mg 1 tabs, Oral, Daily, # 30 tabs, 0 Refill(s) Start Date: 11/05/14 Status: Ordered Results No data available for this section Immunizations No data available for this section Procedures No data available for this section Social History Social History Type Response Smoking Status Current every day smoker; Type: Cigarettes; Tobacco use per day: Less than Pack; Number of years: 46 Assessment and Plan No data available for this section
--- OUTSIDE RECORDS SUMMARY | 2016-09-29 18:39 | XMS REPORT | Referral Summary ---
Author Author [facility] Organization [facility] Address Unknown Phone Unavailable Care Team Providers Care Cath Lab Manager Name Role Phone Rivera Plascencia Primary Care Physician [phone] Encounter VC Date(s): 03/15/15 - 03/15/15 [facility] [address] [place] [id number] Discharge Disposition: 01-Home or Self Care Attending [...] tabs, Oral, Bedtime (once a day), [facility] [phone], # 60 tabs, 0 Refill(s) Start Date: 05/30/15 Status: Ordered bisacodyl 10 mg rectal suppository [...] # 180 mL, eRx: [facility] [place] - [place], [place], USE ONE vial THREE TIMES DAILY [...] 0 Refill(s) Start Date: 11/05/14 Status: Ordered [place] 5 mg-325 mg oral tablet 1 tabs, Oral, TID, FAX TO [facility] ., # 90 tabs, 0 Refill(s) Start Date: 06/20/15 Status: Ordered nystatin 100,000 units/g topical powder [...]
--- OUTSIDE RECORDS SUMMARY | 2016-09-29 18:39 | XMS REPORT | Referral Summary ---
Author Author [facility] Organization [facility] Address Unknown Phone Unavailable Care Team Providers Care Income Tax Consultant Name Role Phone Rivera Plascencia Primary Care Physician [phone] Encounter VC Date(s): 03/08/15 - 03/08/15 [facility] [address] [place] [address] Discharge Disposition: 01-Home or Self Care [...] Oral, Bedtime (once a day), [facility] [phone], # 60 tabs, 0 Refill(s) Start Date: [...] # 180 mL, eRx: [facility] - [place] - [place], [place], USE ONE vial THREE TIMES DAILY [...] 0 Refill(s) Start Date: 11/05/14 Status: Ordered [place] 5 mg-325 mg oral tablet 1 tabs, [...]
--- OUTSIDE RECORDS SUMMARY | 2016-09-29 18:39 | XMS REPORT | Referral Summary ---
Author Author [facility] Organization [facility] Address Unknown Phone Unavailable Care Team Providers Care Windshield Wiper Repairer Name Role Phone Rivera Plascencia Primary Care Physician [phone] Encounter VC Date(s): 11/16/14 - 11/16/14 [facility] [address] [place] [address] Discharge Disposition: 01-Home or Self Care Attending [...] # 180 mL, eRx: [facility] - [place], [place], USE ONE vial THREE TIMES DAILY [...] 0 Refill(s) Start Date: 11/05/14 Status: Ordered [place] 5 mg-325 mg oral tablet 1 tabs, [...]
--- OUTSIDE RECORDS SUMMARY | 2016-09-29 18:39 | XMS REPORT | Continuity of Care Document ---
Author Author [facility] Organization [facility] Address Unknown Phone Unavailable Support Name Relationship Address Phone ADILENE PEREZ MD Caregiver [address] [place] [address] Unavailable INFECTION, CONTROL Caregiver [address] [place] [address] [place] [address] Unavailable MARSHA TRENT Next Of Kin [address] [place], [place] [id number] Insurance Providers Guarantor Samantha Trent Address [address] [place] [address] Email DENIED/NO TO PT PORTAL Payer [facility] Community Plan Policy Number [id number] Subscriber's Name Samantha Trent Relationship 18 Self Effective Date 16 Expiration Date 16 Problems Active Problems Medical Problem Onset Date Status Acute hyperglycemia Unknown Acute Anasarca Unknown Acute Ascites Unknown Acute Atherosclerosis of [place] artery of both lower extremities Unknown Chronic Atrial flutter Unknown Resolved CAD (coronary artery disease) Unknown Chronic COPD (chronic obstructive pulmonary disease) Unknown Chronic Cardiomyopathy Unknown Chronic Chronic a-fib Unknown Chronic Chronic respiratory insufficiency Unknown Chronic Dementia Unknown Chronic 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 81 Mg Oral Daily 01/17/16 Bumetanide 2 Mg Tablet 2 Mg Oral Twice Daily Breakfast & Lunch Carbamide Peroxide (Debrox) 15 Ml Drops 5 Drop Each Ear Daily as needed for Prn Orders 06/13/15 Carvedilol 3.125 Mg Tablet 3.125 Mg Oral Twice A Day 12/22/15 Clobetasol Propionate 15 Gm Cream..g. 1 Applic Topically Twice A Day 01/17/16 Clopidogrel Bisulfate (Clopidogrel) 75 Mg Tablet 75 Mg Oral Daily 01/17/16 Dabigatran Etexilate Mesylate (Pradaxa) 150 Mg Capsule 150 Mg Oral Twice A Day 12/22/15 Docusate Sodium (Colace) 100 Mg Capsule 200 Mg Oral Daily Famotidine 20 Mg Tablet 20 Mg Oral Twice A Day 11/19/14 Ferrous Sulfate (Iron Supplement) 325 Mg Tablet 650 Mg Oral Daily 12/22/15 Fluticasone/Salmeterol (Advair 100-50 Diskus) 1 Disk W/Dev Inhaler 1 Puff Oral Inhalation Resp.tx Twice A Day for Shortness Of Air/Wheezing 12/30 Hydrocodone/Acetaminophen ([place] 7.5-325 Tablet) 7.5-325 Tablet 1 Tab Oral Every 6 Hours as needed for Pain 12/22/15 Insulin Aspart (Novolog) 100 Unit/Ml Inj 6 Unit Sub-Q Three Times Daily With Meals 06/13/15 Insulin Detemir (Levemir) 100 Unit/Ml Inj 15 Unit Sub-Q Twice A Day 12/22/15 Levothyroxine Sodium (Synthroid) 50 Mcg Tablet 50 Mcg Oral Before Breakfast 08/23/15 Lisinopril 5 Mg Tablet 5 Mg Oral Bedtime 11/19/14 Lorazepam 0.5 Mg Tablet 0.5 Mg Oral Every 12 Hours as needed for Anxiety 01/17/16 Lorazepam (Ativan) 1 Mg Tablet 1 Mg Oral Bedtime 11/19/14 Paliperidone (Invega) 9 Mg Tab.er.24 9 Mg Oral Every Morning 12/30 Polyethylene Glycol 3350 (Miralax) 17 Gm Powd.pack 17 G Oral Daily 11/19/14 Potassium Chloride 20 Meq Tablet.er 20 Meq Oral Twice A Day 12/21 Simvastatin (Zocor) 20 Mg Tablet 20 Mg Oral Bedtime 11/19/14 Thiamine Hcl (Vitamin B-1) 100 Mg Tablet 100 Mg Oral Daily Tiotropium Raphine (Spiriva) 1 Cap Inhaler 1 Cap Oral Inhalation Daily 11/19/14 Vitamin B Complex 1 Each Tablet 1 Tab Oral Daily 12/22/15 Past Home Medications Medication Directions Ordered Status Amiodarone Hcl (Pacerone) 200 Mg Tablet, 400 Mg Oral Three Times A Day Discontinued Aspirin 81 Mg Tab.chew, 1 Tab Oral Daily 11/19/14 Discontinued Clopidogrel Bisulfate (Plavix) 75 Mg Tablet, 75 Mg Oral Daily 11/19/14 Discontinued Fluticasone/Salmeterol (Advair Hfa 230-21 Mcg Inhaler) 12 Gm Hfa.aer.ad, 2 Puff Oral Inhalation Resp.tx Twice A Day 11/19/14 Discontinued Furosemide (Lasix) 20 Mg Tablet, 1 Tab Oral Daily 11/19/14 Discontinued Furosemide (Lasix) 20 Mg Tablet, 1 Tab Oral Sun,Tue,Hanny,Sat 11/19/14 Discontinued Furosemide (Lasix) 40 Mg Tablet, 1 Tab Oral Mon,Sat,Sat11/19/14 Discontinued Metformin Hcl 500 Mg Tablet, 500 Mg Oral Twice Daily With Meals 11/19/14 Discontinued Vitamin B , Oral Daily 11/19/14 Discontinued Social History Social History Problem Response Recorded Date/Time Onset Date Status Hx Substance Use No 01/17/2016 11:45am Not Applicable Not Applicable Hx Alcohol Use No 01/17/2016 11:45am Not Applicable Not Applicable Has the pt used tobacco in the last 12 months Yes 01/17/2016 11:45am Not Applicable Not Applicable Tobacco Usage smoke 08/23/2015 1:35am Not Applicable Not Applicable Hospital Discharge Instructions Current inpatient/outpatient. Discharge instructions are currently unavailable. Plan of Care Current inpatient/outpatient. The plan of care is currently unavailable Functional Status No functional status results. Allergies, Adverse Reactions, Alerts No known allergies. Immunizations Query Response on File Recorded Date/Time Hx Influenza Vaccination No 01/17/16 11:45am Hx Pneumococcal Vaccination No 01/17/16 11:45am Hx Influenza Vaccination No 01/17/16 11:45am Influenza Vaccine Hx 04/05/15 12/26/15 12:00pm Vital Signs Acute Vital Signs Vital Response Date/Time Temperature (Fahrenheit) 96.8 deg F (96.8 - 99.1) 01/18/2016 11:34am Temperature (Calculated Celsius) 36.68854 degrees C (36.0 - 37.3) 01/18/2016 11:34am Temperature Source Oral 01/18/2016 11:34am Pulse Rate (adult) 88 bpm (60 - 100) 01/18/2016 11:34am Respiratory Rate 22 breaths/min (10 - 20) 01/18/2016 11:34am O2 Sat by Pulse Oximetry 96 % (90 - 100) 01/18/2016 11:34am Oxygen Delivery Method Nasal Cannula 01/18/2016 11:34am Oxygen Delivery Method Nasal Cannula 01/17/2016 11:44am Oxygen Flow Rate 3.00 L/min 01/18/2016 11:34am Blood Pressure 130/69 mm Hg 01/18/2016 11:34am Blood Pressure Source Automatic Cuff 01/18/2016 11:34am Height (Feet) 5 feet 01/17/2016 12:52pm Height (Inches) 5.00 inches 01/17/2016 12:52pm Weight (Kilograms) 97.800 kg 01/18/2016 8:22am Body Mass Index (BMI) 35.9 01/17/2016 11:42am Results Laboratory Results Test Name Result Units Flags Reference Collection Date/Time Result Date/ Time Comments White Blood Count 7.6 T/MM3 4.5-11.0 01/18/2016 4:am 01/18/2016 5: 26am Red Blood Count 3.22 M/MM3 L 4.50-5.90 01/18/2016 4:am 01/18/2016 5: 26am Hemoglobin 10.4 GM/DL L 13.5-17.5 01/18/2016 4:01/18/2016 5:26am Hematocrit 33.6 % L 41-53 01/18/2016 4:01/18/2016 5:26am Mean Corpuscular Volume 104.3 UM3 H 80-100 01/18/2016 4:01/18/2016 5:26am Mean Corpuscular Hemoglobin 32.3 UUG 26-34 01/18/2016 4:2015 5:26am Mean Corpuscular Hemoglobin Concent 31.0 GM/DL 31-37 01/18/2016 4:01/18/2016 5:26am RDW Standard Deviation 48.4 FL 36.9-50.2 01/18/2016 4:01/18/2016 5 :26am Platelet Count 165 T/MM3 130-400 01/18/2016 4:2301/18/2016 5:26am Mean Platelet Volume 10.9 UM3 9.4-12.4 01/18/2016 4:01/18/2016 5: 26am Neutrophils (%) (Auto) 59.7 % 33-66 01/18/2016 4:01/18/2016 5: 26am Lymphocytes (%) (Auto) 25.1 % 23-45 01/18/2016 4:01/18/2016 5: 26am Monocytes (%) (Auto) 12.6 % H 0-9.0 01/18/2016 4:01/18/2016 5:26am Eosinophils (%) (Auto) 0.9 % 0-4 01/18/2016 4:01/18/2016 5:26am Basophils (%) (Auto) 0.1 % 0-2 01/18/2016 4:01/18/2016 5:26am Immature Granulocyte % (Auto) 1.6 % H 0.0-0.5 01/18/2016 4:2015 5:26am Absolute Neutrophils (auto) 4.6 T/MM3 1.8-7.7 01/18/2016 4:2015 5:26am Absolute Lymphocytes (auto) 1.9 T/MM3 1-4.8 01/18/2016 4:2015 5:26am Absolute Monocytes (auto) 1.0 T/MM3 H 0-0.8 01/18/2016 4:2015 5:26am Absolute Eosinophils (auto) 0.1 T/MM3 0-0.5 01/18/2016 4:2015 5:26am Absolute Basophils (auto) 0.0 T/MM3 0-0.2 01/18/2016 4:01/18/2016 5:26am Absolute Immature Granulocyte (auto 0.12 T/MM3 H 0.00-0.03 01/18/2016 4: 01/18/2016 5:26am Icterus Index < 2 0-7 01/18/2016 4:01/18/2016 5:38am Chemistry Specimen Hemolysis < 15 0-25 01/18/2016 4:01/18/2016 5 :38am 0-25: Specimen Exhibited No Hemolysis. Turbidity < 20 0-20 01/18/2016 4:2301/18/2016 5:38am Sodium Level 134 MEQ/L 134-144 01/18/2016 4:23am 01/18/2016 5:38am Potassium Level 4.4 MEQ/L D 3.6-5 01/18/2016 4:2301/18/2016 5:41am Chloride Level 97 MEQ/L L 98-107 01/18/2016 4:2301/18/2016 5:38am Carbon Dioxide Level 27 MEQ/L 22-30 01/18/2016 4:2301/18/2016 5: 38am Anion Gap 10 MEQ/L 5-15 01/18/2016 4:2301/18/2016 5:38am Blood Urea Nitrogen 17.0 MG/DL 9-01/18/2016 4:01/18/2016 5: 38am Creatinine 0.6 MG/DL L 0.8-1.5 01/18/2016 4:23am 01/18/2016 5:38am BUN/Creatinine Ratio 28 RATIO H 6-26 01/18/2016 4:23am 01/18/2016 5: 38am Glomerular Filtration Rate Calc 137 01/18/2016 4:23am 01/18/2016 5: 38am Glucose Level 239 MG/DL H 75-110 01/18/2016 4:23am 01/18/2016 5:38am Calculated Osmolality 268 MOSM/KG 261-280 01/18/2016 4:23am 01/18/2016 5:38am Calcium Level 9.1 MG/DL 8.4-10.2 01/18/2016 4:23am 01/18/2016 5:38am Glucometer 342 mg/dL H 75-110 01/18/2016 11:14am 01/18/2016 2:35pm Procedures Procedure Status Date Provider(s) ROUTINE VENIPUNCTURE Completed 12/26/15 ROUTINE VENIPUNCTURE Completed 12/26/15 INSERT PICC CATH Completed 12/26/15 ILIAC REVASC Completed 12/26/15 MARYBEL LAWTON MD FEM/POPL REVAS W/TLA Completed 12/26/15 MARYBEL LAWTON MD METABOLIC PANEL TOTAL CA Completed 12/26/15 METABOLIC PANEL TOTAL CA Completed 12/26/15 REAGENT STRIP/BLOOD GLUCOSE Completed 12/26/15 REAGENT STRIP/BLOOD GLUCOSE Completed 12/26/15 REAGENT STRIP/BLOOD GLUCOSE Completed 12/26/15 REAGENT STRIP/BLOOD GLUCOSE Completed 12/26/15 COMPLETE CBC W/AUTO DIFF WBC Completed 12/26/15 COMPLETE CBC W/AUTO DIFF WBC Completed 12/26/15 ELECTROCARDIOGRAM TRACING Completed 12/26/15 AIRWAY INHALATION TREATMENT Completed 12/26/15 AIRWAY INHALATION TREATMENT Completed 12/26/15 [id number]-GUHCIIT ITEM OR SERVICE Completed 12/26/15 [id number]/PERFUSION CAPABILITY) Completed 12/26/15 [id number]) Completed 12/26/15 004797"CLOSURE DEVICE, VASCULAR (IMPLANTABLE/INSERTABLE)" Completed 12/26/15 [id number] WIRE Completed 12/26/15 BALLOON VALERIANO [id number] Completed 12/26/15 318308"INJECTION, HEPARIN SODIUM, PER 1000 UNITS" Completed 12/26/15 929840"INJECTION, HEPARIN SODIUM, PER 1000 UNITS" Completed 12/26/15 573814"INJECTION, INSULIN, PER 5 UNITS" Completed 12/26/15 232825"INJECTION, INSULIN, PER 5 UNITS" Completed 12/26/15 754825"INJECTION, INSULIN, PER 5 UNITS" Completed 12/26/15 224011"INJECTION, INSULIN, PER 5 UNITS" Completed 12/26/15 004157"INJECTION, INSULIN, PER 5 UNITS" Completed 12/26/15 797807"INJECTION, INSULIN, PER 5 UNITS" Completed 12/26/15 511743"INJECTION, MIDAZOLAM HYDROCHLORIDE, PER 1 MG" Completed 12/26/15351202"INJECTION, FENTANYL CITRATE, 0.1 MG" Completed 12/26/15156993"INFUSION, NORMAL SALINE SOLUTION , 1000 CC" Completed 12/26/15 677630"INFUSION, NORMAL SALINE SOLUTION , 1000 CC" Completed 12/26/15 253512"ADMINISTERED THROUGH DME, UNIT DOSE FORM, UP TO 0.5 M Completed 003"LOW OSMOLAR CONTRAST MATERIAL, 300-399 MG/ML IODINE C Completed 003"LOW OSMOLAR CONTRAST MATERIAL, 300-399 MG/ML IODINE C Completed Encounters Encounter Location Arrival/Admit Date Discharge/Depart Date Attending Provider Registered Referred [facility] 01/17/16 2:41pm INFECTION, CONTROL Departed [facility] 01/17/16 11:25am 01/18/16 3:05pm MARYBEL LAWTON MD [facility] 12/26/15 10:50am 12/27/15 1:37pm MARYBEL LAWTON MD
--- OUTSIDE RECORDS SUMMARY | 2016-09-29 18:39 | XMS REPORT | CCD ---
Author Author SUZY MALLORY Organization Unknown Address [address], [place] [id number] Phone 0 Care Team Providers Care Supervisor Residential Name Role Phone ADILENE PEREZ Attending Physician [phone] Vital Signs Unknown or Not Available. Allergies Unknown or Not Available. Procedures Unknown or Not Available. History of Immunizations Immunization Code Date pneumococcal polysaccharide PPV23 33 03/2012 pneumococcal polysaccharide PPV23 33 05/2012 Influenza, seasonal, injectable 141 05/07 Influenza, seasonal, injectable 141 05/27 Problems Unknown or Not Available. Results OCCULT BLOOD STOOL IMMUNOASSAY - Collect Date/Time: 11/16/2015 08:00 Test Name Code Test Result Test Units Test Ref Range OCC BLOOD IM POSITIVE N/A NORMAL: NEGATIVE Active Medications Unknown or Not Available. Medications Administered During Visit Unknown or Not Available. Encounters Unknown or Not Available. Social History Smoking Status Code Start Date End Date Unknown if ever smoked [id number] Patient Decision Aids Unknown or Not Available. Discharge Instructions You were admitted to [facility] on 11/16/2015 11:42 You had the following tests done: OCCULT BLOOD STOOL IMMUNOASSAY You were discharged from [facility] on 11/16/2015 11:42 Should you have any questions prior to [...]
--- OUTSIDE RECORDS SUMMARY | 2016-09-29 18:39 | XMS REPORT | Referral Summary ---
Author Author [facility] Organization [facility] Address Unknown Phone Unavailable Care Team Providers Care Taper Printed Circuit Layout Name Role Phone Rivera Plascencia Primary Care Physician [phone] Encounter Date(s): 12/15/14 - 12/15/14 [facility] [address] [place] [address] [place] [address] Discharge Diagnosis: COPD type A Discharge Diagnosis: Coronary heart disease Discharge Diagnosis: Lipidemia Discharge Diagnosis: Peripheral artery disease Discharge Diagnosis: Smoking Discharge Diagnosis: Atrial flutter Discharge Disposition: -Home or Self Care Attending Physician: Michael Elizalde MD Referring Physician: Magdalena Plascencia MD Vital Signs Most recent to 1 oldest [Reference Range]: Peripheral Pulse 70 bpm Rate [60-100 bpm] (12/15/14 2:46 PM) Blood Pressure 120/80 mmHg [90-140/60-90 mmHg] (12/15/14 2:46 PM) Problem List Condition Effective Dates Status [...] Oral, Bedtime (once a day), [facility] [phone], # 60 tabs, 0 Refill(s) Start Date: [...] # 180 mL, eRx: [facility] - [place], [place], USE ONE vial THREE TIMES DAILY [...] 0 Refill(s) Start Date: 11/05/14 Status: Ordered [place] 5 mg-325 mg oral tablet 1 tabs, [...]
--- OUTSIDE RECORDS SUMMARY | 2016-09-29 18:39 | XMS REPORT | Referral Summary ---
Author Author [facility] Organization [facility] Address Unknown Phone Unavailable Care Team Providers Care Vice Chair Name Role Phone Rivera Plascencia Primary Care Physician [phone] Encounter [facility] Date(s): 02/08/15 - 02/08/15 [facility] [address] [place] [address] Discharge Disposition: 01-Home or Self Care Attending [...] Oral, Bedtime (once a day), [facility] [phone], # 60 tabs, 0 Refill(s) Start Date: [...] # 180 mL, eRx: [facility] - [place] - [place], [place], USE ONE vial THREE TIMES DAILY [...] 0 Refill(s) Start Date: 11/05/14 Status: Ordered Geraldine 5 mg-325 mg oral tablet 1 tabs, [...]
--- OUTSIDE RECORDS SUMMARY | 2016-09-29 18:39 | XMS REPORT | CCD ---
Author Author SUZY MALLORY Organization Unknown Address [address] [place], [place] [address] Phone 0 Care Team Providers Care Barrel Handler Name Role Phone ADILENE PEREZ Attending Physician [phone] Vital Signs Unknown or Not Available. Allergies Unknown or Not Available. Procedures Unknown or Not Available. History of Immunizations Immunization Code Date pneumococcal polysaccharide PPV23 33 03/2012 pneumococcal polysaccharide PPV23 33 05/2012 Influenza, seasonal, injectable 141 05/07 Influenza, seasonal, injectable 141 05/27 Problems Unknown or Not Available. Results BASIC METABOLIC - Collect Date/Time: 08/10/2015 09:45 Test Name Code Test Result Test Units Test Ref Range GLUCOSE 311 mg/dL L=70 H=110 BUN 15 mg/dL L=7 H=18 CREATININE 1.10 mg/ dL L=0.60 H=1.30 AGE 60 YEARS GFR 72.6 SODIUM 133 mmol/L L=136 H=145 POTASSIUM 4.4 mmol/ L L=3.5 H=5.1 CHLORIDE 94 mmol/L L=98 H=107 CO2 28 mmol/L L=21 H=32 CALCIUM 9.4 mg/dL L=8.5 H=10.1 HEPATIC FUNCTION - Collect Date/Time: 08/10/2015 09:45 Test Name Code Test Result Test Units Test Ref Range AST 18 U/L L=15 H=37 ALT 42 U/L L=12 H=78 ALKALINE PHOS 74 U/ L L=46 H=116 TOTAL PROTEIN 7.4 g/ dL L=6.4 H=8.2 ALBUMIN 3.5 g/dL L=3.4 H=5.0 TOTAL BILI 0.40 mg/ dL L=0.00 H=1.00 DIRECT BILI 0.10 mg/ dL L=0.00 H=0.30 HGB A1C - Collect Date/Time: 08/10/2015 09:45 Test Name Code Test Result Test Units Test Ref Range HGB A1C 7.9 % L=4.5 H=6.2 eAG 180 mg/dL LIPID PANEL - Collect Date/Time: 08/10/2015 09:45 Test Name Code Test Result Test Units Test Ref Range CHOLESTEROL 200 mg/ dL L=0 H=200 TRIGLYCERIDES 132 mg /dL L=30 H=150 HDL 58 mg/dL L=40 H=60 LDL, CALC 116 mg/dL L=0 H=100 VLDL 26 mg/dL L=0 H=40 CHOL/HDL RISK 3.4 RATIO L=0.0 H=5.0 PT FASTING: ? N/A THYROXINE (T4) FREE - Collect Date/Time: 08/10/2015 09:45 Test Name Code Test Result Test Units Test Ref Range FT4 1.11 ng/dL L=0.76 H=1.46 TSH - Collect Date/Time: 08/10/2015 09:45 Test Name Code Test Result Test Units Test Ref Range TSH 4.20 uIU/mL L=0.36 H=3.74 CBC W/ DIFF - Collect Date/Time: 08/10/2015 09:45 Test Name Code Test Result Test Units Test Ref Range WBC 8.0 x10^3 L=4.8 H=10.8 RBC 3.86 x10^6 L=4.70 H=6.10 HEMOGLOBIN 12.5 g/ dL L=14.0 H=18.0 HEMATOCRIT 37.7 % L=42.0 H=52.0 MCV 98 fL L=80 H=100 MCH 32.4 pg L=27.0 H=33.0 MCHC 33.2 g/dL L=33.0 H=37.0 RDW 14.4 % L=11.5 H=14.5 PLATELETS 207 x10^3 L=150 H=450 MPV 8.1 fL L=7.8 H=11.0 NEUTROPHILS 68.2 % L=40.0 H=80.0 LYMPHOCYTES 20.2 % L=20.0 H=45.0 MONOCYTES 10.3 % L=0.0 H=10.0 EOSINOPHILS 1.3 % L=0.0 H=5.0 BASOPHILS 0.0 % L=0.0 H=2.0 REFLEX MAN DIFF NO N /A Active Medications Unknown or Not Available. Medications Administered During Visit Unknown or Not Available. Encounters Encounter Diagnosis Diagnosis Code Start Date Essential (primary) hypertension I10 Social History Smoking Status Code Start Date End Date Unknown if ever smoked [id number] Patient Decision Aids Unknown or Not Available. Discharge Instructions You were admitted to [facility] on 08/10/2015 13:47 with a principal diagnosis of Essential (primary) hypertension You had the following tests done: BASIC METABOLIC CBC W/ DIFF HEPATIC FUNCTION HGB A1C LIPID PANEL THYROXINE (T4) FREE TSH You were discharged from [facility] on 08/10/2015 13:47 Should you have any questions prior to discharge, please contact a member of your healthcare team. If you have left the hospital and have any questions, please contact your primary care physician. Chief Complaint and Reason For Visit Unknown or Not Available. Function Status Unknown or Not Available. Plan of Care Unknown or Not Available. Referral/Transition of Care Unknown or Not Available.
--- OUTSIDE RECORDS SUMMARY | 2016-09-29 18:39 | XMS REPORT | Continuity of Care Document ---
Author Author [facility] Organization [facility] Address Unknown Phone Unavailable Support Name Relationship Address Phone MARYBEL LAWTON MD Caregiver [address] [place] [address] [place] [id number] Unavailable ADILENE PEREZ MD Caregiver [address] [place] [address] Unavailable MARSHA SANTACRUZ Next Of Kin [address] [place], [place] [id number] Insurance Providers Guarantor Samantha Santacruz Address [address] [place] [address] Email DENIED/NO TO PT PORTAL Payer [facility] Community Plan Policy Number [id number] Subscriber's Name Samantha Santacruz Relationship 18 Self Effective Date 15 Expiration Date 16 Advance Directives Directive Response Recorded Date/Time Ordered Resuscitation Status Full Code 12/25/15 7:42am Resuscitation Documents on File N Pt verbally confirms full code 12/26/15 11: 28am DPOA for Healthcare Only N Son, Isaac Alvarez Miley 12/26/15 11:28am Problems Active Problems Medical Problem Onset Date Status Acute hyperglycemia Unknown Acute Anasarca Unknown Acute Ascites Unknown Acute Atrial flutter Unknown Resolved CAD (coronary artery disease) Unknown Chronic COPD (chronic obstructive pulmonary disease) Unknown Chronic Cardiomyopathy Unknown Chronic Chronic a-fib Unknown Chronic Chronic respiratory insufficiency Unknown Chronic Dementia Unknown Chronic HTN (hypertension) Unknown Chronic Hypercholesteremia Unknown Chronic Obesity (BMI 30-39.9) Unknown Chronic PAD (peripheral artery disease) Unknown Chronic Pulmonary edema Unknown Acute Schizophrenia Unknown Chronic Surgical Problem Onset Date Status Status post left heart catheterization by percutaneous approach Unknown Acute Medications Current Home Medications Medication Dose Units Route Directions Days Qty Instructions Start Date Acetaminophen 325 Mg Tablet 2 Tab Oral Every 4 Hours Prn as needed for Pain Do not exceed 3,200 mg of acetaminophen in a 24 hours period. 06/13 Aspirin 81 Mg Tab.chew 1 Tab Oral Daily 12/22/15 Bumetanide 2 Mg Tablet 1 Tab Oral Twice A Day 60 Tablet 12/22/15 Carbamide Peroxide (Debrox) 15 Ml Drops 5-10 Drop Each Ear As Needed 06/13/15 Carvedilol 3.125 Mg Tablet 1 Tab Oral Twice Daily With Meals BEST WITH FOOD. 12/22/15 Clopidogrel Bisulfate (Plavix) 75 Mg Tablet 75 Mg Oral Daily 30 Days 30 Tablet 12/27/15 Dabigatran Etexilate Mesylate (Pradaxa) 150 Mg Capsule 1 Cap Oral Twice A Day TAKE WITH FULL GLASS OF WATER. Do not break, chew, open cap. Docusate Sodium (Colace) 100 Mg Capsule 2 Cap Oral Bedtime Famotidine 20 Mg Tablet 1 Tab Oral Twice A Day 11/19/14 Ferrous Sulfate (Iron Supplement) 325 Mg Tablet 2 Tab Oral Daily BEST WITH FOOD. 12/22/15 Fluticasone/Salmeterol (Advair 100-50 Diskus) 1 Disk W/Dev Inhaler 1 Puff Oral Inhalation Resp.tx Twice A Day for Shortness Of Air/Wheezing 12/30 Hydrocodone/Acetaminophen ([place] 7.5-325 Tablet) 7.5-325 Tablet 1 Tab Oral Every 6 Hours as needed for Pain 12/22/15 Insulin Aspart (Novolog) 100 Unit/Ml Inj Unit Sub-Q 06/13/15 Insulin Detemir (Levemir) 100 Unit/Ml Inj Dose Sub-Q 12/22/15 Insulin Glargine,Hum.rec.anlog (Lantus Solostar) 1 Unit Pen Unit Sub-Q Bedtime 06/13/15 Ipratropium/Albuterol Sulfate (Iprat-Albut 0.5-3(2.5) Mg/3 Ml) 3 Ml Ampul.neb 1 Unit Aerosol Tx. Every 6 Hours 12/22/15 Levothyroxine Sodium (Synthroid) 50 Mcg Tablet 1 Tab Oral Before Breakfast BEST IF TAKEN BEFORE BREAKFAST 08/23/15 Lisinopril 5 Mg Tablet 5 Mg Oral Daily 11/19/14 Lorazepam (Ativan) 1 Mg Tablet 1 Mg Oral Bedtime Take 1 tablet, by mouth, one time a day (at BEDTIME). 11/19/14 Paliperidone (Invega) 9 Mg Tab.er.24 1 Tab Oral Every Morning 30 Tablet 12/22/15 Polyethylene Glycol 3350 (Miralax) 17 Gm Powd.pack 17 G Oral Daily Take 17 Grams (1 capful), by mouth, once a day. 11/19/14 Potassium Chloride 20 Meq Tablet.er 20 Meq Oral Twice Daily With Meals Take 1 tablet, by mouth, two times a day with meals. 12/22/15 Simvastatin (Zocor) 20 Mg Tablet 20 Mg Oral Bedtime Take 1 tablet, by mouth, one time a day at BEDTIME. 11/19/14 Thiamine Hcl (Vitamin B-1) 100 Mg Tablet 1 Tab Oral Daily Tiotropium [place] (Spiriva) 1 Cap Inhaler 1 Cap Oral Inhalation Daily Place 1 capsule into inhaler , puncture and inhale one time a day. 11/19/14 Vitamin B Complex 1 Each Tablet [...] (Lasix) 40 Mg Tablet, 1 Tab Oral Mon,Wed,Fri 11/19/14 Discontinued Metformin Hcl 500 Mg Tablet, 500 Mg Oral Twice Daily With Meals 11/19/14 Discontinued Vitamin B , Oral Daily 11/19/14 Discontinued Social History Social History Problem Response Recorded Date/Time Onset Date Status Chewing Tobacco Status No 12/22/2015 4:08pm Not Applicable Not Applicable Hx Substance Use No 12/22/2015 4:08pm Not Applicable Not Applicable Hx Alcohol Use No 12/22/2015 4:08pm Not Applicable Not Applicable Has the pt used tobacco in the last 12 months Yes 12/22/2015 4:08pm Not Applicable Not Applicable Tobacco Usage smoke 08/23/2015 1:35am Not Applicable Not Applicable Query Response Start Date Stop Date Smoking Status Current every day smoker Hospital Discharge Instructions Instructions: Care Instructions: Reason for Hospitalization: heart cath with stent I was in the hospital because (patient own words): to get stents in my heart Discharge Diet: heart healthy diet Discharge Activity: LIMIT ACTIVITY FOR 48 HOURS. NO LIFTING MORE THAN 10 POUNDS FOR 1 WEEK, NO PUSHING AND PULLING. Follow Up Appointments: FOLLOW UP APPOINTMENT 02-01-2016 AT 11:00 A.M. AT THE [facility] WITH DR. LAWTON Pending Lab / Results: No Pending Lab Patient Instructions: TAKE PLAVIX 75 MG DAILY AND PRADAXA 150MG 2 TIMES A DAY, EVERYDAY. DO NOT STOP WITH AN ORDER FROM DR LAWTON ONLY. YOU WILL CONTINUE YOUR OTHER HOME MEDS INCLUDING ASPIRIN 81MG Wound/Incision Care: KEEP SITE CLEAN AND DRY. NO TUB BATHING OR SWIMMING, MAY SHOWER Notify Physician If: BLEEDING, DRAINAGE, PAIN OR FEVER GREATER THAN 101.5 Condition at time of discharge: Good Plan of Care Discharge Date 12/27/15 1:37pm Prescriptions See Medication Section Functional Status Query Response Date Recorded Mobility Status Ambulatory December 27, 2015 12:23pm Assistive Devices OBSERVED TO RELY UPON MOBILITY O2 CART December 27, 2015 12:23pm Activity Limitations Fatigue December 27, 2015 12:23pm Feeding Ability Independent December 27, 2015 12:23pm Toileting Ability Independent December 27, 2015 12:23pm Grooming Ability Assist December 27, 2015 12:23pm Dressing Ability Assist December 27, 2015 12:23pm Driving Ability Dependent December 27, 2015 12:23pm Housework Ability Assist December 27, 2015 12:23pm Meal Preparation Ability Assist December 27, 2015 12:23pm Stair Climbing Ability Dependent December 27, 2015 12:23pm Ability to complete ADL's impeded by No change December 27, 2015 12:23pm Cognitive/Perceptual Impairments Impaired hearing December 27, 2015 12:23pm Preferred Method of Learning Listening Video/TV December 26, 2015 11:30am Allergies, Adverse Reactions, Alerts No known allergies. Immunizations Query Response on File Recorded Date/Time Hx Influenza Vaccination Y 12/22/15 4:08pm Hx Pneumococcal Vaccination Y fall 201312/22/15 4:08pm Hx Influenza Vaccination Y 12/22/15 4:08pm Influenza Vaccine Hx 04/05/15 12/26/15 12:00pm Vital Signs Acute Vital Signs Vital Response Date/Time Temperature (Fahrenheit) 97.8 deg F (96.8 - 99.1) 12/27/2015 12:21pm Temperature (Calculated Celsius) 36.23919 degrees C (36.0 - 37.3) 12/27/2015 12:21pm Pulse Rate (adult) 82 bpm (60 - 100) 12/27/2015 12:21pm Respiratory Rate 22 breaths/min (10 - 20) 12/27/2015 12:21pm O2 Sat by Pulse Oximetry 94 % (90 - 100) 12/27/2015 12:21pm Oxygen Delivery Method Nasal Cannula 12/26/2015 8:25pm Oxygen Delivery Method Nasal Cannula 12/27/2015 12:21pm Oxygen Flow Rate 4.00 L/min 12/27/2015 12:21pm Blood Pressure 120/59 mm Hg 12/27/2015 12:21pm Blood Pressure Source Automatic Cuff 12/27/2015 12:21pm Height (Feet) 5 feet 12/26/2015 11:27am Height (Inches) 5.00 inches 12/26/2015 11:27am Weight (Kilograms) 96.200 kg 12/27/2015 8:09am Body Mass Index (BMI) 35.2 12/26/2015 11:27am Results Laboratory Results Test Name Result Units Flags Reference Collection Date/Time Result Date/ Time Comments White Blood Count 6.7 T/MM3 4.5-11.0 12/27/2015 4:12am 12/27/2015 4: 39am Red Blood Count 3.28 M/MM3 L 4.50-5.90 12/27/2015 4:12am 12/27/2015 4: 39am Hemoglobin 10.5 GM/DL L 13.5-17.5 12/27/2015 4:12am 12/27/2015 4:39am Hematocrit 33.6 % L 41-53 12/27/2015 4:12am 12/27/2015 4:39am Mean Corpuscular Volume 102.4 UM3 H 80-100 12/27/2015 4:12am 12/27/2015 4:39am Mean Corpuscular Hemoglobin 32.0 UUG 26-34 12/27/2015 4:2015 4:39am Mean Corpuscular Hemoglobin Concent 31.3 GM/DL 31-37 12/27/2015 4:12/27/2015 4:39am RDW Standard Deviation 48.2 FL 36.9-50.2 12/27/2015 4:12/27/2015 4 :39am Platelet Count 169 T/MM3 130-400 12/27/2015 4:12/27/2015 4:39am Mean Platelet Volume 10.8 UM3 9.4-12.4 12/27/2015 4:12/27/2015 4: 39am Neutrophils (%) (Auto) 59.8 % 33-66 12/27/2015 4:12/27/2015 4: 39am Lymphocytes (%) (Auto) 24.9 % 23-45 12/27/2015 4:12/27/2015 4: 39am Monocytes (%) (Auto) 13.0 % H 0-9.0 12/27/2015 4:12/27/2015 4:39am Eosinophils (%) (Auto) 1.2 % 0-4 12/27/2015 4:12/27/2015 4:39am Basophils (%) (Auto) 0.1 % 0-2 12/27/2015 4:12/27/2015 4:39am Immature Granulocyte % (Auto) 1.0 % H 0.0-0.5 12/27/2015 4:2015 4:39am Absolute Neutrophils (auto) 4.0 T/MM3 1.8-7.7 12/27/2015 4:2015 4:39am Absolute Lymphocytes (auto) 1.7 T/MM3 1-4.8 12/27/2015 4:2015 4:39am Absolute Monocytes (auto) 0.9 T/MM3 H 0-0.8 12/27/2015 4:2015 4:39am Absolute Eosinophils (auto) 0.1 T/MM3 0-0.5 12/27/2015 4:2015 4:39am Absolute Basophils (auto) 0.0 T/MM3 0-0.2 12/27/2015 4:12/27/2015 4:39am Absolute Immature Granulocyte (auto 0.07 T/MM3 H 0.00-0.03 12/27/2015 4: 12/27/2015 4:39am Icterus Index < 2 0-7 12/27/2015 4:12/27/2015 4:51am Chemistry Specimen Hemolysis < 15 0-25 12/27/2015 4:12/27/2015 4 :51am 0-25: Specimen Exhibited No Hemolysis. Turbidity < 20 0-20 12/27/2015 4:12/27/2015 4:51am Sodium Level 136 MEQ/L 134-144 12/27/2015 4:12/27/2015 4:51am Potassium Level 4.1 MEQ/L D 3.6-5 12/27/2015 4:12/27/2015 5:24am Chloride Level 98 MEQ/L 98-107 12/27/2015 4:12/27/2015 4:51am Carbon Dioxide Level 30 MEQ/L 22-30 12/27/2015 4:12/27/2015 4: 51am Anion Gap 8 MEQ/L 5-15 12/27/2015 4:12/27/2015 4:51am Blood Urea Nitrogen 12.0 MG/DL 9-12/27/2015 4:12/27/2015 4: 51am Creatinine 0.6 MG/DL L 0.8-1.5 12/27/2015 4:1212/27/2015 4:51am BUN/Creatinine Ratio 20 RATIO 6-26 12/27/2015 4:12/27/2015 4:51am Glomerular Filtration Rate Calc 137 12/27/2015 4:12/27/2015 4: 51am Glucose Level 202 MG/DL H 75-110 12/27/2015 4:12/27/2015 4:51am Calculated Osmolality 268 MOSM/KG 261-280 12/27/2015 4:12/27/2015 4:51am Calcium Level 9.0 MG/DL 8.4-10.2 12/27/2015 4:1212/27/2015 4:51am Glucometer 259 mg/dL H 75-110 12/27/2015 11:45am 12/27/2015 11:49am Procedures No known history of procedures. Encounters Encounter Location Arrival/Admit Date Discharge/Depart Date Attending Provider Departed [facility] 12/26/15 10:50am 12/27/15 1:37pm MARYEBL LAWTON MD
--- OUTSIDE RECORDS SUMMARY | 2016-09-29 18:39 | XMS REPORT | Continuity of Care Document ---
Author Author [facility] Organization [facility] Address Unknown Phone Unavailable Care Team Providers Care Hall Cleaner Name Role Phone DODIE PASTOR DO Primary Care Physician [phone] Insurance Providers Payer Name Policy Number Subscriber Name Relationship [facility] [id number] Samantha Trent 01 Self / Same As Patient Chief Complaint and Reason for Visit Chief Complaint Respiratory Problem Reason for Visit [id number] Mild CHF Problems Medical Problems Problem Onset Date Status Acute COPD exacerbation Unknown Active Acute hypoxia Unknown Active Mild CHF Unknown Active Acute COPD exacerbation Unknown Active Acute COPD exacerbation Unknown Active Respiratory distress Unknown Active Bronchitis Unknown Active Pain chest wall (anterior) Unknown Active Pain chest (central) Unknown Active Acute bronchitis Unknown Active Bronchitis Unknown Active Pain chest wall (anterior) Unknown Active Chronic congestive heart failure Unknown Active Heart disease Unknown Active Chronic obstructive lung disease Unknown Active SCHIZOPHRENIA NOS-CHR Unknown Active DEPRESSIVE DISORDER NEC Unknown Active Ascites Unknown Active Hx of diabetes mellitus Unknown Active Influenza A Unknown Active COPD with acute exacerbation Unknown Active Medications Medication Dose Route Sig Days/Qty Instructions Order Date Discontinued Date Status Paliperidone 05/24/10 Active Albuterol 1-2 Puffs INH Every 4 hours as needed 1 Qty 07/08/13 Active Fluticasone/Salmeterol 1 Ea INH TWICE A DAY 1 Qty 07/17/13 Active Metformin Hcl 500 Mg PO TWICE A DAY 08/18/13 Active Guaifenesin 600 Mg PO TWICE A DAY 08/18/13 Active Aspirin 08/18/13 Active Clopidogrel Bisulfate 75 Mg PO DAILY 08/18/13 Active Famotidine 20 Mg PO DAILY 08/18/13 Active Furosemide 20 Mg PO DAILY 08/18/13 Active Potassium Chloride 10 Meq PO DAILY 08/18/13 Active Tiotropium [place] Monohydrate 1 IN 08/18/13 Active Folic Acid 1 Mg PO DAILY 08/18/13 Active Thiamine Mononitrate 08/18/13 Active Polyethylene Glycol 17 Gm PO 08/19/13 Active Multiple Vitamins W/ Minerals 1 X PO 08/19/13 Active Lisinopril 5 Mg PO DAILY 03/30/14 Active Simvastatin 20 Mg PO DAILY 03/30/14 Active Trazodone HCl 100 06/29/14 Active Furosemide 40 Mg PO sat06/29/14 Active Venlafaxine Hcl 300 Mg PO DAILY 06/29/14 Active Oseltamivir Phosphate 75 Mg PO TWICE A DAY For INFLUENZA 9 Qty Active Albuterol 1 Ea INH DIRECTED For Wheezing 25 Qty 06/29/14 Active Prednisone 20 Mg PO DAILY For INFLAMMATION 7 Days 06/29/14 Active Social History Social History Problem Response Recorded Date/Time Hx Alcohol Use No 08/18/2013 11:20pm Hx Tobacco Use Yes 08/18/2013 11:20pm Smoking Status Current every day smoker 06/29/2014 9:22pm Query Response Start Date Stop Date Smoking Status Current every day smoker Hospital Discharge Instructions No hospital discharge instructions. Plan of Care Discharge Date 06/29/14 11:59pm Disposition [facility] ([facility]) Condition at Discharge Stable Instructions/Education Provided Influenza (ED) Acute Bronchitis (ED) Prescriptions See Medications Section Follow-up Orders Limited Area Ultraso CBC CMP Prothrombin Time PTT Referrals DODIE PASTOR DO Additional Instructions/Education You've declined admission to our hospital for further treatment of your shortness of breath. You've tested positive for the flu. We will treat you with Tamiflu which should shorten the duration of your symptoms. Complete course. Use Albuterol nebulizer every 4 hours as needed for shortness of breath or wheezing. Complete steroid course. Continue with oxygen. Continue with Lasix. Return to the ER should your breathing difficulties worsen. Functional Status No functional status results. Allergies, Adverse Reactions, Alerts Allergen Type Severity Reaction Status Last Updated No Known Drug Allergy Allergy Unknown Active 05/19/14 Immunizations No immunization records. Vital Signs Acute Vital Signs Vital Response Date/Time Blood Pressure 93/65 mm Hg Blood Pressure Mean 74 mm Hg Temperature (Fahrenheit) 97.6 degrees F (96.0 - 99.9) Temperature (Calculated Celsius) 36.54291 degrees C Temperature Source Oral Temperature Source Axillary Pulse Pulse Rate (adult) 142 bpm (60 - 100) Pulse Rate: ED 135 bpm Respiratory Rate 20 breaths per minute (10 - 20) Height (Feet) 5 ft Height (Inches) 5 in. Weight (Pounds) 202 lbs Ambulatory Vital Signs Vital Response Date/Time Height 5 ft 5 in 03/30/2014 3:55pm Weight 202 lbs 03/30/2014 3:55pm Temperature, Oral 97.5 degrees F 03/30/2014 3:55pm Blood Pressure, Sitting, Right Arm 96/44 mm Hg 03/30/2014 3:55pm Pulse Rate 144 bpm 03/30/2014 3:55pm Respiration Rate 15 bpm 03/30/2014 3:55pm Body Surface Area 2.09 m2 03/30/2014 3:55pm Body Mass Index 33.6 kg/m2 03/30/2014 3:55pm Results Test Source Date Result Interp. Ref. Range Comments Influenza Virus Type B (PCR) June 29, 2014 9:40pm Negative NEGATIVE InFluenza Virus Type A (H1N1) (PCR) June 29, 2014 9:40pm Not detected NEGATIVE Influenza Virus Type A (PCR) June 29, 2014 9:40pm Positive NEGATIVE CALLED POSITIVE FLU A TO ER / 230506/29/14 Activated Partial Thromboplast Time March 30, 2014 4:49pm 32.4 SECONDS N 24.0-37.0 REASON FOR EXAM: AscitesDx Code 789.59 Comments OTHER ASCITES Alanine Aminotransferase (ALT/SGPT) June 29, 2014 9:25pm 55 U/L H 5- 40 Albumin June 29, 2014 9:25pm 3.5 gm/dL N 3.2-5.0 Albumin/Globulin Ratio June 29, 2014 9:25pm 0.9 L 1.4-2.4 Alkaline Phosphatase June 29, 2014 9:25pm 87 U/L N 35-125 Amylase Level January 11, 2006 8:08am 39 U/L N 16-108 Anion Gap June 29, 2014 9:25pm 13.5 H 6-13 Arterial Blood HCO3 June 29, 2014 9:45pm 27.2 mEq/L H 21-27 DONE ON 10L/M NRB MASKRESULTS GIVEN TO Arterial Blood Total CO2 June 29, 2014 9:45pm 28.6 mM/L H 21-27 Arterial Blood pH June 29, 2014 9:45pm 7.38 N 7.35-7.45 Aspartate Amino Transf (AST/SGOT) June 29, 2014 9:25pm 42 U/L H 5-40 B-Type Natriuretic Peptide June 29, 2014 9:25pm 417 pg/mL H 15-100 BUN/Creatinine Ratio June 29, 2014 9:25pm 27.3 Band Neutrophils August 18, 2013 8:56pm 2.0 % N 0-7 Basophils # (Auto) June 29, 2014 9:25pm 0.0 K/uL N 0-0.2 Basophils (%) (Auto) June 29, 2014 9:25pm 0.4 % N 0-1 Basophils (Manual) August 18, 2013 8:56pm 0.0 % N 0-1 Bedside Troponin I August 19, 2013 9:45am < 0.05 ng/mL 0.00-0.05 <0.05 ng/mL=NORMAL0.05 - 0.40 ng/mL=CARDIAC CONDITION >0.40 ng/mL=SUGGESTS AMI Benzodiazepines Screen July 11, 2010 6:15am Negative NEGATIVE ROOM /COMMENTS 04Lab to draw N If applicable:TELEPHONE/VERBAL order by (other than ) Gila Blood Gas Base Excess June 29, 2014 9:45pm 27.2 mEq/L Blood Gas PCO2 June 29, 2014 9:45pm 46 mmHg H 35-45 Blood Gas PO2 June 29, 2014 9:45pm 143 mmHg H 89-100 Blood Urea Nitrogen June 29, 2014 9:25pm 21 mg/dL N 8-25 C-Reactive Protein October 20, 2008 4:42pm 34.8 mg/L <6.0 Calcium Level June 29, 2014 9:25pm 8.6 mg/dL N 8.2-10.6 Carbon Dioxide Level June 29, 2014 9:25pm 26 mEq/L N 22-34 Chloride Level June 29, 2014 9:25pm 96 mEq/L L 98-116 Cholesterol Level August 17, 2011 10:35am 205 mg/dL H 120-[address] LOUIE AT [phone] SSW Cocaine Screen July 11, 2010 6:15am Negative NEGATIVE ROOM/ COMMENTS 04Lab to draw N If applicable:TELEPHONE/VERBAL order by (other than ) Gila Creatine Kinase MB August 19, 2013 9:23am 1.1 ng/mL N 0.0-6.0 Creatinine June 29, 2014 9:25pm 0.77 mg/dL L 0.9-1.6 D-Dimer Quantitative (PE/DVT) June 29, 2014 9:25pm 265 ng/mL <230 Results <230 ng/mL melita a negativepredictability for DVT or PE Direct Bilirubin May 03, 2006 9:17am 0.0 mg/dL N 0-0.4 [facility] Screen (T) July 11, 2010 6:15am Positive NEGATIVE ROOM/ COMMENTS 04Lab to draw N If applicable:TELEPHONE/VERBAL order by (other than ) [place]ila Eosinophils # (Auto) June 29, 2014 9:25pm 0.0 K/uL N 0-0.8 Eosinophils (%) (Auto) June 29, 2014 9:25pm 0.0 % N 0-7.0 Eosinophils (Manual) August 18, 2013 8:56pm 1.0 % N 0-7.0 Ethyl Alcohol Level September 14, 2012 11:25am 0.4 mg/dl N 0-10 A level below 10 mg/dl should be considered negative. Free Thyroxine January 11, 2006 8:08am 0.6 ng/dL N 0.58-1.64 Globulin June 29, 2014 9:25pm 3.8 gm/dL H 2.0-3.0 Glomerular Filtration Rate Calc June 29, 2014 9:25pm > 60.00 mL/min MULTIPLY RESULT BY 1.210 IF THE PATIENT IS -AMERICANUnits are mL/min /1.73 m2 > 60 Normal kidney function 30-59 Moderately decreased kidney function 15-29 Severely decreased kidney function <15 End-stage kidney failure Glycated Hemoglobin November 27, 2010 2:59pm 5.5 % N 4.0-6.0 HDL Cholesterol August 17, 2011 10:35am 40 mg/dL N 40-[address] LOUIE AT [phone] SSW Hematocrit June 29, 2014 9:25pm 36.3 % L 40.0-54.0 Hemoglobin June 29, 2014 9:25pm 12.2 g/dL L 14.0-18.0 Hypochromasia July 16, 2013 5:25am 1+ Immature Blood Cells September 14, 2012 11:25am 0.2 K/uL N 0-0.4 COMMENT: 03 Immature Granulocyte # (Auto) June 29, 2014 9:25pm 0.12 K/uL N 0- 0.40 Immature Granulocyte % (Auto) June 29, 2014 9:25pm 1.3 % H 0-0.5 Indirect Bilirubin May 03, 2006 9:17am 0.5 mg/dL N 0.1-0.8 [facility] LDL Cholesterol August 17, 2011 10:35am 145 mg/dL H 25-[address] LOUIE AT [phone] SSW Lipase January 11, 2006 8:08am 8 U/L N 8-57 Lymphocytes # (Auto) June 29, 2014 9:25pm 0.7 K/uL L 0.9-5.2 Lymphocytes (%) (Auto) June 29, 2014 9:25pm 7.6 % L 16.0-44.0 Lymphocytes (Manual) August 18, 2013 8:56pm 9.0 % L 21.0-51.0 MRSA Surveillance Screen July 13, 2013 1:00am Mrsa negative NEGATIVE HAS SPECIMEN BEEN OBTAINED/COLLECTED? Y Macrocytosis July 16, 2013 5:25am 1+ Magnesium Level July 13, 2013 12:20pm 2.1 mg/dL N 1.3-2.5 Mean Corpuscular Hemoglobin June 29, 2014 9:25pm 34.0 pg H 26.0-33.0 Mean Corpuscular Hemoglobin Concent June 29, 2014 9:25pm 33.6 g/dL N 31.0-36.0 Mean Corpuscular Volume June 29, 2014 9:25pm 101.1 fL H 80.0-94.0 Mean Platelet Volume June 29, 2014 9:25pm 10.5 fL N 7.0-11.0 Monocytes # (Auto) June 29, 2014 9:25pm 0.9 K/uL N 0.16-1.0 Monocytes (%) (Auto) June 29, 2014 9:25pm 10.3 % H 2.0-9.0 Monocytes (Manual) August 18, 2013 8:56pm 10.0 % H 2.0-9.0 Neutrophils August 18, 2013 8:56pm 78.0 % H 42.0-75.0 Neutrophils # (Auto) June 29, 2014 9:25pm 7.2 K/uL N 1.9-8.0 Neutrophils (%) (Auto) June 29, 2014 9:25pm 80.4 % H 42.0-75.0 Nucleated Red Blood Cells # June 29, 2014 9:25pm 0.00 K/uL N 0.0- 0.012 Nucleated Red Blood Cells % June 29, 2014 9:25pm 0.0 /100WBC N 0-0 Phosphorus Level July 13, 2013 12:20pm 4.0 mg/dL N 2.5-4.5 Platelet Count June 29, 2014 9:25pm 141 K/uL N 130-400 Platelet Estimate August 18, 2013 8:56pm Normal NORMAL Potassium Level June 29, 2014 9:25pm 4.5 mEq/L N 3.5-5.1 Prostate Specific Antigen November 27, 2010 2:59pm 0.1 ng/ml N 0.0-3.5 Prothromb Time International Ratio March 30, 2014 4:49pm 1.20 L 2.0- 3.0 REASON FOR EXAM: AscitesDx Code 789.59 Comments OTHER ASCITES Prothrombin Time August 18, 2013 8:56pm 11.0 SECONDS N 9.0-12.0 Prothrombin Time Patient/Contrl Mix March 30, 2014 4:49pm 12.9 SECONDS H 9.0-12.0 REASON FOR EXAM: AscitesDx Code 789.59 Comments OTHER ASCITES RDW Standard Deviation June 29, 2014 9:25pm 57.6 fL H 35.1-43.9 Random Glucose June 29, 2014 9:25pm 110 mg/dL N 65-115 Red Blood Count June 29, 2014 9:25pm 3.59 M/uL L 4.60-5.40 Red Cell Distribution Width June 29, 2014 9:25pm 15.6 % H 11.5-14.5 Sodium Level June 29, 2014 9:25pm 131 mEq/L L 133-145 Thyroid Stimulating Hormone (TSH) November 27, 2010 2:59pm 1.96 uIU/ml N 0.34-5.60 Thyroxine (T4) January 11, 2006 8:08am 5.6 ug/dl N 4.7-11.5 Total Bilirubin June 29, 2014 9:25pm 0.9 mg/dL N 0.1-1.3 Total Creatine Kinase August 19, 2013 9:23am 25 U/L N 10-180 Total Protein June 29, 2014 9:25pm 7.3 gm/dL N 6.0-8.4 Triglycerides Level August 17, 2011 10:35am 101 mg/dL N 45-[address] LOUIE AT [phone] SSW Troponin I June 29, 2014 9:25pm 0.02 ng/mL N 0.0-0.02 Ur Tetrahydrocannabinol (THC) Scrn September 14, 2012 12:00am Negative NEGATIVE COMMENT: 03 Ur Tricyclic Antidepressants Screen September 14, 2012 12:00am Negative NEGATIVE COMMENT: 03 Urine Amorphous Sediment October 23, 2009 7:27am None Urine Amphetamines Screen September 14, 2012 12:00am Negative NEGATIVE COMMENT: 03 Urine Appearance September 14, 2012 12:00am Clear COMMENT: 03SOURCE: URINE, CLEAN CATCH Urine Bacteria October 23, 2009 7:27am None NEGATIVE Urine Barbiturates July 11, 2010 6:15am Negative NEGATIVE ROOM/ COMMENTS 04Lab to draw N If applicable:TELEPHONE/VERBAL order by (other than ) W Urine Barbiturates Screen September 14, 2012 12:00am Negative NEGATIVE COMMENT: 03 Urine Benzodiazepines Screen September 14, 2012 12:00am Negative NEGATIVE COMMENT: 03 Urine Bilirubin September 14, 2012 12:00am Negative NEGATIVE COMMENT: 03SOURCE: URINE, CLEAN CATCH Urine Cannabinoids July 11, 2010 6:15am Positive NEGATIVE ROOM/ COMMENTS 04Lab to draw N If applicable:TELEPHONE/VERBAL order by (other than ) W Urine Casts October 23, 2009 7:27am None /lpf NONE Urine Cocaine Screen September 14, 2012 12:00am Negative NEGATIVE COMMENT : 03 Urine Color September 14, 2012 12:00am Dark yellow COMMENT: 03SOURCE: URINE, CLEAN CATCH Urine Crystals October 23, 2009 7:27am None /hpf NONE Urine Epithelial Cells October 23, 2009 7:27am Rare /lpf Urine Glucose (UA) September 14, 2012 12:00am Negative NEGATIVE COMMENT: 03SOURCE: URINE, CLEAN CATCH Urine Ketones September 14, 2012 12:00am Trace NEGATIVE COMMENT: 03SOURCE : URINE, CLEAN CATCH Urine Leukocyte Esterase September 14, 2012 12:00am Negative NEGATIVE COMMENT: 03SOURCE: URINE, CLEAN CATCH Urine Methadone Screen September 14, 2012 12:00am Negative NEGATIVE COMMENT: 03 Urine Methamphetamines Screen September 14, 2012 12:00am Negative NEGATIVE COMMENT: 03 Urine Mucus October 23, 2009 7:27am None NEGATIVE Urine Nitrate September 14, 2012 12:00am Negative NEGATIVE COMMENT: 03SOURCE: URINE, CLEAN CATCH Urine Occult Blood September 14, 2012 12:00am Negative NEGATIVE COMMENT: 03SOURCE: URINE, CLEAN CATCH Urine Opiates Screen September 14, 2012 12:00am Negative NEGATIVE COMMENT : 03 Urine Phencyclidine Screen September 14, 2012 12:00am Negative NEGATIVE COMMENT: 03 Urine Propoxyphene Screen September 14, 2012 12:00am Negative NEGATIVE COMMENT: 03 Urine Protein September 14, 2012 12:00am Trace H NEGATIVE COMMENT: 03SOURCE : URINE, CLEAN CATCH Urine RBC October 23, 2009 7:27am Rare /hpf NONE Urine Specific [place] September 14, 2012 12:00am 1.025 1.005-1.030 COMMENT: 03SOURCE: URINE, CLEAN CATCH Urine Urobilinogen September 14, 2012 12:00am 1.0 E.U./dL 0.2-1.0 COMMENT : 03SOURCE: URINE, CLEAN CATCH Urine WBC October 23, 2009 7:27am Rare /hpf NONE Urine WBC Clumps October 23, 2009 7:27am None NONE Urine pH September 14, 2012 12:00am 6.0 4.5-8.0 COMMENT: 03SOURCE: URINE , CLEAN CATCH VLDL Cholesterol August 17, 2011 10:35am 20.2 N 5-[address] LOUIE AT [phone] SSW White Blood Count June 29, 2014 9:25pm 8.9 K/uL N 5.0-10.0 Blood Culture Blood July 08, 2013 1:22pm No growth. Gram Stain Sputum-Expectorated Sputum July 08, 2013 1:46pm Procedures Procedure Status Date Provider(s) THER/PROPH/DIAG INJ IV PUSH completed 07/08/13 MARÍA ELENA SIMEON M.D. TX/PRO/DX INJ NEW DRUG ADDON completed 07/08/13 MARÍA ELENA SIMEON M.D. TX/PRO/DX INJ NEW DRUG ADDON completed 07/08/13 MARÍA ELENA SIMEON M.D. THER/PROPH/DIAG INJ IV PUSH completed 08/18/13 JORDAN HARRELL MD Encounters Encounter Location Date/Time Departed Emergency Room [facility] 06/29/14 9:15pm Office Visit [facility]ART[facility] 03/30/14 3:45pm Discharged Inpatient [facility] 08/18/13 11:15pm Discharged Inpatient [facility] 07/14/13 10:27am Discharged Inpatient [facility] 07/12/13 2:22am Departed Emergency Room [facility] 07/08/13 12:31pm Discharged Recurring [facility] 03/16/11 7:10pm Discharged Recurring [facility] 03/16/11 7:00pm Recent Diagnosis
--- OUTSIDE RECORDS SUMMARY | 2016-09-29 18:39 | XMS REPORT | Referral Summary ---
Author Author [facility] Organization [facility] Address Unknown Phone Unavailable Care Team Providers Care Machine Wiper Name Role Phone Rivera Plascencia Primary Care Physician [phone] Encounter VC Date(s): 02/15/15 - 02/15/15 [facility] [address] [place] [address] Discharge Disposition: 01-Home or Self Care Attending [...] Oral, Bedtime (once a day), [facility] [phone], # 60 tabs, 0 Refill(s) Start Date: [...] # 180 mL, eRx: [facility] - [place] - [place], [place], USE ONE vial THREE TIMES DAILY [...] 0 Refill(s) Start Date: 11/05/14 Status: Ordered [place] 5 mg-325 mg oral tablet 1 tabs, [...]
--- OUTSIDE RECORDS SUMMARY | 2016-09-29 18:40 | XMS REPORT | Referral Summary ---
Author Author [facility] Organization [facility] Address Unknown Phone Unavailable Care Team Providers Care Linemarker Name Role Phone Rivera Plascencia Primary Care Physician [phone] Encounter VC Date(s): 12/06/14 - 12/06/14 [facility] [address] [place] [address] Discharge Disposition: 01-Home or Self Care Attending [...] Oral, Bedtime (once a day), [facility] [phone], # 60 tabs, 0 Refill(s) Start Date: [...] # 180 mL, eRx: [facility] - [place] - [place], [place], USE ONE vial THREE TIMES DAILY [...] 0 Refill(s) Start Date: 11/05/14 Status: Ordered [place] 5 mg-325 mg oral tablet 1 tabs, [...]
--- OUTSIDE RECORDS SUMMARY | 2016-09-29 18:40 | XMS REPORT | CCD ---
Author Author SU[facility]Y MALLORY Organization Unknown Address [address], [place] [id number] Phone 0 Care Team Providers Care Balance Truing Inspector Name Role Phone ADILENE PEREZ Attending Physician [phone] Vital Signs Unknown or Not Available. Allergies Unknown or Not Available. Procedures Unknown or Not Available. History of Immunizations Immunization Code Date pneumococcal polysaccharide PPV23 33 03/2012 pneumococcal polysaccharide PPV23 33 05/2012 Influenza, seasonal, injectable 141 05/07 Influenza, seasonal, injectable 141 05/27 Problems Unknown or Not Available. Results BASIC METABOLIC - Collect Date/Time: 04/24/2016 09:27 Test Name Code Test Result Test Units Test Ref Range GLUCOSE 372 mg/dL L=70 H=110 BUN 13 mg/dL L=7 H=18 CREATININE 0.70 mg/ dL L=0.60 H=1.30 AGE 61 YEARS GFR 114.6 SODIUM 135 mmol/L L=136 H=145 POTASSIUM 4.1 mmol/ L L=3.5 H=5.1 CHLORIDE 97 mmol/L L=98 H=107 CO2 33 mmol/L L=21 H=32 CALCIUM 8.8 mg/dL L=8.5 H=10.1 PRO B-TYPE NATRIURETIC PEPTIDE - Collect Date/Time: 04/24/2016 09:27 Test Name Code Test Result Test Units Test Ref Range PBNP 147 pg/mL L=0 H=125 TSH - Collect Date/Time: 04/24/2016 09:27 Test Name Code Test Result Test Units Test Ref Range TSH 1.27 uIU/mL L=0.36 H=3.74 CBC W/ DIFF - Collect Date/Time: 04/24/2016 09:27 Test Name Code Test Result Test Units Test Ref Range WBC 6.7 x10^3 L=4.8 H=10.8 RBC 3.90 x10^6 L=4.70 H=6.10 HEMOGLOBIN 12.7 g/ dL L=14.0 H=18.0 HEMATOCRIT 38.5 % L=42.0 H=52.0 MCV 99 fL L=80 H=100 MCH 32.6 pg L=27.0 H=33.0 MCHC 33.0 g/dL L=33.0 H=37.0 RDW 12.8 % L=11.5 H=14.5 PLATELETS 179 x10^3 L=150 H=450 MPV 9.1 fL L=7.8 H=11.0 NEUTROPHILS 61.8 % L=40.0 H=80.0 LYMPHOCYTES 25.3 % L=20.0 H=45.0 MONOCYTES 11.5 % L=0.0 H=10.0 EOSINOPHILS 1.1 % L=0.0 H=5.0 BASOPHILS 0.3 % L=0.0 H=2.0 REFLEX MAN DIFF NO N /A Active Medications Unknown or Not Available. Medications Administered During Visit Unknown or Not Available. Encounters Encounter Diagnosis Diagnosis Code Start Date Schizophrenia, unspecified [id number] Social History Smoking Status Code Start Date End Date Unknown if ever smoked [id number] Patient Decision Aids Unknown or Not Available. Discharge Instructions You were admitted to [facility] on 04/24/2016 10:27 with a principal diagnosis of Schizophrenia, unspecified You had the following tests done: BASIC METABOLIC CBC W/ DIFF PRO B- TYPE NATRIURETIC PEPTIDE TSH You were discharged from [facility] on 04/24/2016 10:27 Should you have any questions prior to [...]
--- OUTSIDE RECORDS SUMMARY | 2016-09-29 18:40 | XMS REPORT | Referral Summary ---
Author Author [facility] Organization [facility] Address Unknown Phone Unavailable Care Team Providers Care Voice Intercept Technician Name Role Phone Rivera Plascencia Primary Care Physician [phone] Encounter VC Date(s): 11/25/14 - 11/25/14 [facility] [address] [place] [address] Discharge Disposition: 01-Home or Self Care Attending Physician: Magdalena Plascencia MD Admitting Physician: Magdlaena Plascencia MD Vital Signs No data available [...] Oral, Bedtime (once a day), [facility] [phone], # 60 tabs, 0 Refill(s) Start Date: [...] # 180 mL, eRx: [facility] - [place] - [place], [place], USE ONE vial THREE TIMES DAILY [...] 0 Refill(s) Start Date: 11/05/14 Status: Ordered [place] 5 mg-325 mg oral tablet 1 tabs, [...]
--- OUTSIDE RECORDS SUMMARY | 2016-09-29 18:40 | XMS REPORT | Continuity of Care Document ---
Author Author [facility] Organization [facility] Address Unknown Phone Unavailable Care Team Providers Care Die Cut Operator Name Role Phone DODIE PASTOR DO Primary Care Physician [phone] Insurance Providers Payer Name Policy Number Subscriber Name Relationship [facility] Comm Eren [id number] Samantha Trent 01 Self / Same As Patient Advance Directives Directive Response Recorded Date/Time Patient Resuscitation Status Full Code 10/28/14 7:32pm Advance Directives Yes 10/28/14 7:32pm Living Will No 10/28/14 7:32pm Health Care Power of Real Estate Associate Yes 10/28/14 7:32pm Chief Complaint and Reason for Visit Chief Complaint SWELLING IN TESTICLES Reason for Visit Acute hypoxia Chronic congestive heart failure Chronic obstructive lung disease DEPRESSIVE DISORDER NEC COPD with acute exacerbation Anasarca Diabetes mellitus, type 2 Abdominal distention Anasarca Ascites Scrotal swelling Problems Medical Problems Problem Onset Date Status [...] Active COPD with acute exacerbation Unknown Active Hx of diabetes mellitus Unknown Active Anasarca Unknown Active Diabetes mellitus, type 2 Unknown Active Abdominal distention Unknown Active Anasarca Unknown Active Ascites Unknown Active Scrotal swelling Unknown Active Medications Medication Dose Route Sig Days/Qty Instructions Order Date Discontinued Date Status Paliperidone 05/24/10 Active Albuterol 1-2 Puffs INH Every 4 hours as needed 1 Qty 07/08/13 Discontinued Fluticasone/Salmeterol 1 Ea INH TWICE A DAY 1 Qty 07/17/13 08/02/14 Discontinued Metformin Hcl 500 Mg PO TWICE A DAY 08/18/13 Active Guaifenesin 600 Mg PO TWICE A DAY 08/18/13 Active Aspirin 08/18/13 Active Clopidogrel Bisulfate 75 Mg PO DAILY 08/18/13 Active Famotidine 20 Mg PO DAILY 08/18/13 Active Furosemide 20 Mg PO DAILY 08/18/13 Active Potassium Chloride 10 Meq PO DAILY 08/18/13 10/28/14 Discontinued Tiotropium Mclean Monohydrate 1 IN 08/18/13 Active Folic Acid 1 Mg PO DAILY 08/18/13 Active Thiamine Mononitrate 08/18/13 Active Polyethylene Glycol 17 Gm PO 08/19/13 Active Multiple Vitamins W/ Minerals 1 X PO 08/19/13 Active Lisinopril 5 Mg PO DAILY 03/30/14 Active Simvastatin 20 Mg PO DAILY 03/30/14 Active Trazodone HCl 100 06/29/14 Active Furosemide 40 Mg PO sat06/29/14 11/02/14 Discontinued Venlafaxine Hcl 225 Mg PO DAILY For Not specified 06/29/14 Active Oseltamivir Phosphate 75 Mg PO TWICE A DAY For INFLUENZA 9 Qty Active Albuterol 1 Ea INH DIRECTED For Wheezing 25 Qty 06/29/14 Active Prednisone 20 Mg PO DAILY For INFLAMMATION 7 Days 06/29/14 10/28/14 Discontinued Lorazepam 1.5 Mg PO BEDTIME For Anxiety 10/28/14 Active Cetirizine Hcl 10 Mg PO DAILY For Not specified 10/28/14 Active Fluticasone-Salmeterol 2 Puffs INH TWICE A DAY For COPD 10/28/14 Active Furosemide 40 Mg PO TWICE A DAY For CHF 30 Qty 11/02/14 Active Social History Social History Problem Response Recorded Date/Time Hx Alcohol Use Yes 10/28/2014 7:58pm Hx Tobacco Use Yes 10/28/2014 7:58pm Smoking Status Current every day smoker 10/28/2014 6:29pm Query Response Start Date Stop Date Smoking Status Current every day smoker Hospital Discharge Instructions Discharge Instructions Provider Instructions Dismiss Date: November 02, 2014 Dismiss: Jennifer Sourav Fitch Diet: As Tolerated Activity: As Tolerated Discharge Instructions D/C home. Follow up with PCP in 1-2 weeks. Plan of Care Discharge Date 11/02/14 1:10pm Disposition [facility] ([facility]) Prescriptions See Medications Section Follow-up Orders Limited Area Ultraso CBC CMP Prothrombin Time PTT Functional Status Query Response Date Recorded Overall Activities Daily Living Ability/Staff Support Independ/No setup help October 28, 2014 5:30pm Toileting Ability/Staff Support Limited/One person assist November 01, 2014 12:07am Oral Care Ability/Staff Support Patient Refused November 01, 2014 9:05pm Upper Body Dressing Ability/Staff Support Extens/One person assist November 01, 2014 12:07am Lower Body Dressing Ability/Staff Support Extens/One person assist November 01, 2014 12:07am Cognitive Skills Independent November 02, 2014 8:49am Making self understood Understood November 02, 2014 8:49am Allergies, Adverse Reactions, Alerts Allergen Type Severity Reaction Status Last Updated No Known Allergies Active 10/28/14 Immunizations Name Given Type Pneumonia Vaccine Received Y 11/01/12 Historical Had a Tetanus Toxoid Vaccination less than 10yrs ago Yes Historical Vital Signs Acute Vital Signs Vital Response Date/Time Blood Pressure 93/57 mm Hg Blood Pressure Mean 69 mm Hg Temperature (Fahrenheit) 97.5 degrees F (96.0 - 99.9) Temperature (Calculated Celsius) 36.10952 degrees C Temperature Source Oral Temperature Source Oral Pulse Pulse Rate (adult) 140 bpm (60 - 100) Pulse Rate: ED 133 bpm Respiratory Rate 12 breaths per minute (10 - 20) Height (Feet) 0 ft Height (Inches) 65.0 in. Weight (Pounds) 205.1 lbs Height 5 ft 5 in Weight 205 lb Body Mass Index 34.1 kg/m^2 Ambulatory Vital Signs Vital Response Date/Time Height [...] Source Date Result Interp. Ref. Range Comments Activated Partial Thromboplast Time March 30, 2014 4:49pm 32.4 SECONDS N 24.0-37.0 REASON FOR EXAM: AscitesDx Code 789.59 Comments OTHER ASCITES Alanine Aminotransferase (ALT/SGPT) October 28, 2014 2:55pm 32 U/L N 5-40 Albumin October 28, 2014 2:55pm 2.9 gm/dL L 3.2-5.0 Albumin/Globulin Ratio October 28, 2014 2:55pm 0.7 L 1.4-2.4 Alkaline Phosphatase October 28, 2014 2:55pm 149 U/L H 35-125 Amylase Level January 11, 2006 8:08am 39 U/L N 16-108 Anion Gap November 02, 2014 5:35am 10.0 N 6-13 Arterial Blood HCO3 June 29, 2014 9:45pm 27.2 mEq/L H 21-27 DONE ON 10L/M NRB MASKRESULTS GIVEN TO Arterial Blood Total CO2 June 29, 2014 9:45pm 28.6 mM/L H 21-27 Arterial Blood pH June 29, 2014 9:45pm 7.38 N 7.35-7.45 Aspartate Amino Transf (AST/SGOT) October 28, 2014 2:55pm 34 U/L N 5-40 B-Type Natriuretic Peptide October 28, 2014 2:55pm 389 pg/mL H 15-100 BUN/Creatinine Ratio November 02, 2014 5:35am 34.0 Band Neutrophils August 18, 2013 8:56pm 2.0 % N 0-7 Basophils # (Auto) October 28, 2014 2:55pm 0.0 K/uL N 0-0.2 Basophils (%) (Auto) October 28, 2014 2:55pm 0.4 % N 0-1 Basophils (Manual) August 18, 2013 8:56pm 0.0 % N 0-1 Bedside Glucose November 02, 2014 6:28am 141 mg/dL H 70-120 Notify Nurse Bedside Troponin I August 19, 2013 9:45am [...] 143 mmHg H 89-100 Blood Urea Nitrogen November 02, 2014 5:35am 18 mg/dL N 8-25 C-Reactive Protein October 20, 2008 4:42pm 34.8 mg/L <6.0 Calcium Level November 02, 2014 5:35am 9.2 mg/dL N 8.2-10.6 Carbon Dioxide Level November 02, 2014 5:35am 33 mEq/L N 22-34 Chloride Level November 02, 2014 5:35am 94 mEq/L L 98-116 Cholesterol Level August 17, 2011 10:35am 205 mg/dL H 120-[address] LOUIE AT [phone] [id number] SSW Cocaine Screen July 11, 2010 6:15am Negative NEGATIVE ROOM/ COMMENTS 04Lab to draw N If applicable:TELEPHONE/VERBAL order by (other than ) W Creatine Kinase MB August 19, 2013 9:23am 1.1 ng/mL N 0.0-6.0 Creatinine November 02, 2014 5:35am 0.53 mg/dL L 0.9-1.6 D-Dimer Quantitative (PE/DVT) June 29, 2014 9:25pm 265 ng/mL <230 Results <230 ng/mL melita zarate negativepredictability for DVT or PE Direct Bilirubin May 03, 2006 9:17am 0.0 mg/dL N 0-0.4 [facility] Drug Screen (T) July 11, 2010 6:15am Positive NEGATIVE ROOM/ COMMENTS 04Lab to draw N If applicable:TELEPHONE/VERBAL order by (other than ) [place] Eosinophils # (Auto) October 28, 2014 2:55pm 0.1 K/uL N 0-0.8 Eosinophils (%) (Auto) October 28, 2014 2:55pm 0.6 % N 0-7.0 Eosinophils (Manual) August 18, 2013 8:56pm 1.0 % N 0-7.0 Ethyl Alcohol Level September 14, 2012 11:25am 0.4 mg/dl N 0-10 A level below 10 mg/dl should be considered negative. Free Thyroxine January 11, 2006 8:08am 0.6 ng/dL N 0.58-1.64 Globulin October 28, 2014 2:55pm 3.9 gm/dL H 2.0-3.0 Glomerular Filtration Rate Calc November 02, 2014 5:35am > 60.00 mL/min MULTIPLY RESULT BY 1.210 IF THE PATIENT IS -AMERICANUnits are mL/min/ 1.73 m2 > 60 Normal kidney function 30-59 Moderately decreased kidney function 15-29 Severely decreased kidney function <15 End-stage kidney failure Glycated Hemoglobin November 27, 2010 2:59pm 5.5 % N 4.0-6.0 HDL Cholesterol August 17, 2011 10:35am 40 mg/dL N 40-[address] LOUIE AT [phone] SSW Hematocrit October 28, 2014 2:55pm 35.7 % L 40.0-54.0 Hemoglobin October 28, 2014 2:55pm 12.0 g/dL L 14.0-18.0 Hypochromasia July 16, 2013 5:25am 1+ Immature Blood Cells September 14, 2012 11:25am 0.2 K/uL N 0-0.4 COMMENT: 03 Immature Granulocyte # (Auto) October 28, 2014 2:55pm 0.13 K/uL N 0-0.40 Immature Granulocyte % (Auto) October 28, 2014 2:55pm 1.6 % H 0-0.5 InFluenza Virus Type A (H1N1) (PCR) June 29, 2014 9:40pm Not detected NEGATIVE Indirect Bilirubin May 03, 2006 9:17am 0.5 mg/dL N 0.1-0.8 FAX TO [facility] Influenza Virus Type A (PCR) June 29, 2014 9:40pm Positive NEGATIVE CALLED POSITIVE FLU A TO ER / 2305/ 06/29/14 Influenza Virus Type B (PCR) June 29, 2014 9:40pm Negative NEGATIVE LDL Cholesterol August 17, 2011 10:35am 145 mg/dL H 25-[address] LOUIE AT [phone] SSW Lipase January 11, 2006 8:08am 8 U/L N 8-57 Lymphocytes # (Auto) October 28, 2014 2:55pm 0.8 K/uL L 0.9-5.2 Lymphocytes (%) (Auto) October 28, 2014 2:55pm 9.3 % L 16.0-44.0 Lymphocytes (Manual) August 18, 2013 8:56pm 9.0 % L 21.0-51.0 MRSA Surveillance Screen October 28, 2014 7:00pm Mrsa negative NEGATIVE HAS SPECIMEN BEEN OBTAINED/COLLECTED? Y Macrocytosis July 16, 2013 5:25am 1+ Magnesium Level July 13, 2013 12:20pm 2.1 mg/dL N 1.3-2.5 Mean Corpuscular Hemoglobin October 28, 2014 2:55pm 33.3 pg H 26.0-33.0 Mean Corpuscular Hemoglobin Concent October 28, 2014 2:55pm 33.6 g/dL N 31.0 -36.0 Mean Corpuscular Volume October 28, 2014 2:55pm 99.2 fL H 80.0-94.0 Mean Platelet Volume October 28, 2014 2:55pm 10.8 fL N 7.0-11.0 Monocytes # (Auto) October 28, 2014 2:55pm 1.2 K/uL H 0.16-1.0 Monocytes (%) (Auto) October 28, 2014 2:55pm 14.6 % H 2.0-9.0 Monocytes (Manual) August 18, 2013 8:56pm 10.0 % H 2.0-9.0 Neutrophils August 18, 2013 8:56pm 78.0 % H 42.0-75.0 Neutrophils # (Auto) October 28, 2014 2:55pm 6.0 K/uL N 1.9-8.0 Neutrophils (%) (Auto) October 28, 2014 2:55pm 73.5 % N 42.0-75.0 Nucleated Red Blood Cells # October 28, 2014 2:55pm 0.00 K/uL N 0.0-0.012 Nucleated Red Blood Cells % October 28, 2014 2:55pm 0.0 /100WBC N 0-0 Phosphorus Level July 13, 2013 12:20pm 4.0 mg/dL N 2.5-4.5 Platelet Count October 28, 2014 2:55pm 176 K/uL N 130-400 Platelet Estimate August 18, 2013 8:56pm Normal NORMAL Potassium Level November 02, 2014 5:35am 4.0 mEq/L N 3.5-5.1 Prostate Specific Antigen November [...] 789.59 Comments OTHER ASCITES RDW Standard Deviation October 28, 2014 2:55pm 58.9 fL H 35.1-43.9 Random Glucose November 02, 2014 5:35am 133 mg/dL H 65-115 Red Blood Count October 28, 2014 2:55pm 3.60 M/uL L 4.60-5.40 Red Cell Distribution Width October 28, 2014 2:55pm 16.6 % H 11.5-14.5 Sodium Level November 02, 2014 5:35am 133 mEq/L N 133-145 Thyroid Stimulating Hormone (TSH) November 27, 2010 2:59pm 1.96 uIU/ml N 0.34-5.60 Thyroxine (T4) January 11, 2006 8:08am 5.6 ug/dl N 4.7-11.5 Total Bilirubin October 28, 2014 2:55pm 1.8 mg/dL H 0.1-1.3 Total Creatine Kinase August 19, 2013 9:23am 25 U/L N 10-180 Total Protein October 28, 2014 2:55pm 6.8 gm/dL N 6.0-8.4 Triglycerides Level August 17, 2011 10:35am 101 mg/dL N 45-[address] LOUIE AT [phone] SSW Troponin I October 28, 2014 2:55pm 0.01 ng/mL N 0.0-0.02 Ur Tetrahydrocannabinol (THC) Scrn September 14, 2012 12:00am Negative NEGATIVE COMMENT: 03 Ur Tricyclic Antidepressants Screen September 14, 2012 12:00am Negative NEGATIVE COMMENT: 03 Urine Amorphous Sediment October 28, 2014 7:00pm 1+ SOURCE: URINE, RANDOMHAS SPECIMEN BEEN OBTAINED/COLLECTED? Y Urine Amphetamines Screen September 14, 2012 12:00am Negative NEGATIVE COMMENT: 03 Urine Appearance October 28, 2014 7:00pm Clear SOURCE: URINE, RANDOMHAS SPECIMEN BEEN OBTAINED/COLLECTED? Y Urine Bacteria October 28, 2014 7:00pm None /hpf NONE SOURCE: URINE, RANDOMHAS SPECIMEN BEEN OBTAINED/COLLECTED? Y Urine Barbiturates July 11, 2010 6:15am Negative NEGATIVE ROOM/ COMMENTS 04Lab to draw N If applicable:TELEPHONE/VERBAL order by (other than ) W Urine Barbiturates Screen September 14, 2012 12:00am Negative NEGATIVE COMMENT: 03 Urine Benzodiazepines Screen September 14, 2012 12:00am Negative NEGATIVE COMMENT: 03 Urine Bilirubin October 28, 2014 7:00pm Negative NEGATIVE SOURCE: URINE, RANDOMHAS SPECIMEN BEEN OBTAINED/COLLECTED? Y Urine Cannabinoids July 11, 2010 6:15am Positive NEGATIVE ROOM/ COMMENTS 04Lab to draw N If applicable:TELEPHONE/VERBAL order by (other than ) W Urine Casts October 23, 2009 7:27am None /lpf NONE Urine Cocaine Screen September 14, 2012 12:00am Negative NEGATIVE COMMENT : 03 Urine Color October 28, 2014 7:00pm [place] SOURCE: URINE, RANDOMHAS SPECIMEN BEEN OBTAINED/COLLECTED? Y Urine Crystals October 23, 2009 7:27am None /hpf NONE Urine Epithelial Cells October 28, 2014 7:00pm Many /lpf SOURCE: URINE , RANDOMHAS SPECIMEN BEEN OBTAINED/COLLECTED? Y Urine Glucose (UA) October 28, 2014 7:00pm Negative NEGATIVE SOURCE: URINE, RANDOMHAS SPECIMEN BEEN OBTAINED/COLLECTED? Y Urine Ketones October 28, 2014 7:00pm Negative NEGATIVE SOURCE: URINE, RANDOMHAS SPECIMEN BEEN OBTAINED/COLLECTED? Y Urine Leukocyte Esterase October 28, 2014 7:00pm Negative NEGATIVE SOURCE : URINE, RANDOMHAS SPECIMEN BEEN OBTAINED/COLLECTED? Y Urine Methadone Screen September 14, 2012 12:00am Negative NEGATIVE COMMENT: 03 Urine Methamphetamines Screen September 14, 2012 12:00am Negative NEGATIVE COMMENT: 03 Urine Mucus October 28, 2014 7:00pm 4+ /lpf NONE SOURCE: URINE, RANDOMHAS SPECIMEN BEEN OBTAINED/COLLECTED? Y Urine Nitrate October 28, 2014 7:00pm Negative NEGATIVE SOURCE: URINE, RANDOMHAS SPECIMEN BEEN OBTAINED/COLLECTED? Y Urine Occult Blood October 28, 2014 7:00pm Trace-lysed NEGATIVE SOURCE: URINE, RANDOMHAS SPECIMEN BEEN OBTAINED/COLLECTED? Y Urine Opiates Screen September 14, 2012 12:00am Negative NEGATIVE COMMENT : 03 Urine Phencyclidine Screen September 14, 2012 12:00am Negative NEGATIVE COMMENT: 03 Urine Propoxyphene Screen September 14, 2012 12:00am Negative NEGATIVE COMMENT: 03 Urine Protein October 28, 2014 7:00pm Trace H NEGATIVE SOURCE: URINE, RANDOMHAS SPECIMEN BEEN OBTAINED/COLLECTED? Y Urine RBC October 28, 2014 7:00pm 0-1 /hpf NONE SOURCE: URINE, RANDOMHAS SPECIMEN BEEN OBTAINED/COLLECTED? Y Urine Specific [place] October 28, 2014 7:00pm >=1.030 1.005-1.030 SOURCE : URINE, RANDOMHAS SPECIMEN BEEN OBTAINED/COLLECTED? Y Urine Urobilinogen October 28, 2014 7:00pm >=8.0 E.U./dL 0.2-1.0 SOURCE: URINE, RANDOMHAS SPECIMEN BEEN OBTAINED/COLLECTED? Y Urine WBC October 28, 2014 7:00pm 0-1 /hpf NONE SOURCE: URINE, RANDOMHAS SPECIMEN BEEN OBTAINED/COLLECTED? Y Urine WBC Clumps October 23, 2009 7:27am None NONE Urine pH October 28, 2014 7:00pm 6.0 4.5-8.0 SOURCE: URINE, RANDOMHAS SPECIMEN BEEN OBTAINED/COLLECTED? Y VLDL Cholesterol August 17, 2011 10:35am 20.2 N 5-[address] LOUIE AT [phone] SSW White Blood Count October 28, 2014 2:55pm 8.2 K/uL N 5.0-10.0 Blood Culture Blood June 29, 2014 10:09pm No growth. Gram Stain Sputum-Expectorated Sputum July 08, 2013 1:46pm Procedures Procedure Status Date Provider(s) THER/PROPH/DIAG IV INF INIT completed 06/29/14 MARÍA ELENA SIMEON M.D. TX/PRO/DX INJ NEW DRUG ADDON completed 06/29/14 MARÍA ELENA SIMEON M.D. Encounters Encounter Location Date/Time Discharged Inpatient [facility] 10/29/14 10:47am Departed Emergency Room [facility] 06/29/14 9:15pm Office Visit NIA HARTMAN 03/30/14 3:45pm Discharged Recurring [facility] 03/16/11 7:10pm Discharged Recurring [facility] 03/16/11 7:00pm Recent Diagnosis Acute hypoxia Chronic congestive heart failure Chronic obstructive lung disease DEPRESSIVE DISORDER NEC COPD with acute exacerbation Anasarca Diabetes mellitus, type 2 Abdominal distention Anasarca Ascites Scrotal swelling
--- OUTSIDE RECORDS SUMMARY | 2016-09-29 18:40 | XMS REPORT | CCD ---
Author Author SUZY MALLORY Organization Unknown Address [address], [place] [address] Phone 0 Care Team Providers Care Methods Analyst Name Role Phone ADILENE PEREZ Attending Physician [phone] Vital Signs Unknown or Not Available. Allergies Unknown or Not Available. Procedures Unknown or Not Available. History of Immunizations Immunization Code Date pneumococcal polysaccharide PPV23 33 03/2012 pneumococcal polysaccharide PPV23 33 05/2012 Influenza, seasonal, injectable 141 05/07 Influenza, seasonal, injectable 141 05/27 Problems Unknown or Not Available. Results MICROALBUMIN/CREATININE RATIO - Collect Date/Time: 12/14/2015 10:10 Test Name Code Test Result Test Units Test Ref Range MICROALBUMIN 0.5 mg/ dL L=0.1 H=2.0 CREAT, URINE <13.0 mg/dL Active Medications Unknown or Not Available. Medications Administered During Visit Unknown or Not Available. Encounters Encounter Diagnosis Diagnosis Code Start Date Type 2 diabetes mellitus without complications E119 12/14/2015 Social History Smoking Status Code Start Date End Date Unknown if ever smoked [id number] Patient Decision Aids Unknown or Not Available. Discharge Instructions You were admitted to [facility] on 12/14/2015 13:52 with a principal diagnosis of Type 2 diabetes mellitus without complications You had the following tests done: MICROALBUMIN/CREATININE RATIO You were discharged from [facility] on 12/14/2015 13:52 Should you have any questions prior to [...]
--- OUTSIDE RECORDS SUMMARY | 2016-09-29 18:40 | XMS REPORT | Referral Summary ---
Author Author [facility] Organization [facility] Address Unknown Phone Unavailable Care Team Providers Care Newspaper Managing Editor Name Role Phone Rivera Plascencia Primary Care Physician [phone] Encounter VC Date(s): 02/24/15 - 02/24/15 [facility] [address] [place] [address] Discharge Disposition: 01-Home or Self [...] Oral, Bedtime (once a day), [facility] [phone], # 60 tabs, 0 Refill(s) Start Date: [...] # 180 mL, eRx: [facility] [place] - [place], [place], USE ONE vial THREE TIMES DAILY [...] 0 Refill(s) Start Date: 11/05/14 Status: Ordered [place] 5 mg-325 mg oral tablet 1 tabs, [...]
--- OUTSIDE RECORDS SUMMARY | 2016-09-29 18:40 | XMS REPORT | Referral Summary ---
Author Author [facility] Organization [facility] Address Unknown Phone Unavailable Care Team Providers Care Global Chief Creative Officer Name Role Phone Rivera Plascencia Primary Care Physician [phone] Encounter Date(s): 01/11/15 - 01/11/15 [facility] [address] [place] [address] Discharge Disposition: 01-Home or Self Care [...] Oral, Bedtime (once a day), [facility] [phone], # 60 tabs, 0 Refill(s) Start Date: [...] # 180 mL, eRx: [facility] [place] - [place], [place], USE ONE vial THREE TIMES DAILY [...] 0 Refill(s) Start Date: 11/05/14 Status: Ordered [place] 5 mg-325 mg oral tablet 1 tabs, [...]
--- OUTSIDE RECORDS SUMMARY | 2016-09-29 18:40 | XMS REPORT | CCD ---
Author Author ALIYA BALES Organization Unknown Address [address] [place], [place] [id number] Phone 0 Care Team Providers Care Artisan Plasterer Name Role Phone ADILENE PEREZ Attending Physician [phone] Vital Signs Unknown or Not Available. Allergies Unknown or Not Available. Procedures Unknown or Not Available. History of Immunizations Immunization Code Date pneumococcal polysaccharide PPV23 33 03/2012 pneumococcal polysaccharide PPV23 33 05/2012 Influenza, seasonal, injectable 141 05/07 Influenza, seasonal, injectable 141 05/27 Problems Unknown or Not Available. Results HEPATIC FUNCTION - Collect Date/Time: 03/22/2015 09:30 Test Name Code Test Result Test Units Test Ref Range AST 19 U/L L=15 H=37 ALT 39 U/L L=12 H=78 ALKALINE PHOS 92 U/ L L=46 H=116 TOTAL PROTEIN 7.4 g/ dL L=6.4 H=8.2 ALBUMIN 3.4 g/dL L=3.4 H=5.0 TOTAL BILI 0.40 mg/ dL L=0.00 H=1.00 DIRECT BILI 0.10 mg/ dL L=0.00 H=0.30 THYROXINE (T4) FREE - Collect Date/Time: 03/22/2015 09:30 Test Name Code Test Result Test Units Test Ref Range FT4 0.88 ng/dL L=0.76 H=1.46 TSH - Collect Date/Time: 03/22/2015 09:30 Test Name Code Test Result Test Units Test Ref Range TSH 5.43 uIU/mL L=0.36 H=3.74 Active Medications Unknown or Not Available. Medications Administered During Visit Unknown or Not Available. Encounters Encounter Diagnosis Diagnosis Code Start Date Unspecified atrial flutter [id number] 2014 Social History Smoking Status Code Start Date End Date Unknown if ever smoked [id number] Patient Decision Aids Unknown or Not Available. Discharge Instructions You were admitted to [facility] on 03/22/2015 with a principal diagnosis of Unspecified atrial flutter. You were discharged from [facility] on 03/22/2015. Should you have any questions prior to [...]
--- OUTSIDE RECORDS SUMMARY | 2016-09-29 18:40 | XMS REPORT | Referral Summary ---
Author Author [facility] Organization [facility] Address Unknown Phone Unavailable Care Team Providers Care Radiation Control Technician Name Role Phone Rivera Plascencia Primary Care Physician [phone] Encounter VC Date(s): 12/06/14 - 12/06/14 [facility] [address] [place] [address] Discharge Disposition: 01-Home or Self Care [...] Oral, Bedtime (once a day), [facility] [phone], # 60 tabs, 0 Refill(s) Start Date: [...] # 180 mL, eRx: [facility] - [place] - [place], [place], USE ONE vial THREE TIMES DAILY [...] 0 Refill(s) Start Date: 11/05/14 Status: Ordered [place] 5 mg-325 mg oral tablet 1 tabs, [...]
--- OUTSIDE RECORDS SUMMARY | 2016-09-29 18:40 | XMS REPORT | CCD ---
Author Author SUZY MALLORY Organization Unknown Address [address] [place], [place] [address] Phone 0 Care Team Providers Care Corporate Development Intern Name Role Phone ADILENE PEREZ Attending Physician [phone] Vital Signs Unknown or Not Available. Allergies Unknown or Not Available. Procedures Unknown or Not Available. History of Immunizations Immunization Code Date pneumococcal polysaccharide PPV23 33 03/2012 pneumococcal polysaccharide PPV23 33 05/2012 Influenza, seasonal, injectable 141 05/07 Influenza, seasonal, injectable 141 05/27 Problems Unknown or Not Available. Results CBC W/ DIFF - Collect Date/Time: 11/09/2015 09:35 Test Name Code Test Result Test Units Test Ref Range WBC 6.4 x10^3 L=4.8 H=10.8 RBC 3.58 x10^6 L=4.70 H=6.10 HEMOGLOBIN 11.5 g/ dL L=14.0 H=18.0 HEMATOCRIT 34.4 % L=42.0 H=52.0 MCV 96 fL L=80 H=100 MCH 32.1 pg L=27.0 H=33.0 MCHC 33.4 g/dL L=33.0 H=37.0 RDW 19.4 % L=11.5 H=14.5 PLATELETS 203 x10^3 L=150 H=450 MPV 8.3 fL L=7.8 H=11.0 NEUTROPHILS 64.2 % L=40.0 H=80.0 LYMPHOCYTES 21.9 % L=20.0 H=45.0 MONOCYTES 12.1 % L=0.0 H=10.0 EOSINOPHILS 1.4 % L=0.0 H=5.0 BASOPHILS 0.4 % L=0.0 H=2.0 REFLEX MAN DIFF NO N /A OCCULT BLOOD STOOL IMMUNOASSAY - Collect Date/Time: 11/08/2015 13:00 Test Name Code Test Result Test Units Test Ref Range OCC BLOOD IM POSITIVE N/A NORMAL: NEGATIVE Active Medications Unknown or Not Available. Medications Administered During Visit Unknown or Not Available. Encounters Encounter Diagnosis Diagnosis Code Start Date Melena [id number] 11/09/2015 Social History Smoking Status Code Start Date End Date Unknown if ever smoked [id number] Patient Decision Aids Unknown or Not Available. Discharge Instructions You were admitted to [facility] on 11/09/2015 10:39 with a principal diagnosis of Melena You had the following tests done: CBC W / DIFF OCCULT BLOOD STOOL IMMUNOASSAY You were discharged from [facility] on 11/09/2015 10:39 Should you have any questions prior to [...]
--- OUTSIDE RECORDS SUMMARY | 2016-09-29 18:40 | XMS REPORT | Referral Summary ---
Author Author [facility] Organization [facility] Address Unknown Phone Unavailable Care Team Providers Care Trouble Tracer Name Role Phone Rivera Plascencia Primary Care Physician [phone] Encounter Date(s): 11/05/14 - 11/05/14 [facility] [address] [place] [address]- Discharge Diagnosis: CAD Discharge Diagnosis: Tachycardia Discharge Diagnosis: Hypoxia Discharge Diagnosis: Schizophrenia Discharge Diagnosis: Elevated d-dimer Discharge Diagnosis: Advanced COPD Discharge Diagnosis: Cardiomegaly Discharge Diagnosis: Atrial flutter Discharge Diagnosis: Tobacco user Discharge Diagnosis: SOB (shortness of breath) Discharge Disposition: 01-Home or Self Care Attending Physician: Magdalena Plascencia MD Admitting Physician: Magdalena Plascencia MD Vital Signs Most recent to 1 oldest [Reference Range]: Temperature Tympanic 36.8 degC [36.6-38.1 degC] (11/05/14 8:10 AM) Blood Pressure 116/62 mmHg [90-140/60-90 mmHg] (11/05/14 8:10 AM) SpO2 89 % (11/05/14 8:10 AM) Problem List Condition Effective Dates Status Health [...] # 180 mL, eRx: [facility] [place] - [place], [place], USE ONE vial THREE TIMES DAILY [...] 0 Refill(s) Start Date: 11/05/14 Status: Ordered [place] 5 mg-325 mg oral tablet 1 tabs, [...] Refill(s) Start Date: 11/05/14 Status: Ordered Results Hematology Most recent to 1 oldest [Reference Range]: WBC [5.0-10.0 7.6 10*3/uL 10*3/uL] (11/05/14 9:48 AM) RBC [3.70-5.20 3.99 10*6/uL 10*6/uL] (11/05/14 9:48 AM) Hgb [12.0-16.0 13.1 gm/dL gm/dL] (11/05/14 9:48 AM) Hct [40.0-54.0 %] 40.1 % (11/05/14 9:48 AM) MCV [80.0-96.0 fL] 100.5 fL *HI* (11/05/14 9:48 AM) MCH [26.0-34.0 pg] 32.8 pg (11/05/14 9:48 AM) MCHC [32.0-36.0 32.7 gm/dL gm/dL] (11/05/14 9:48 AM) RDW [0.0-14.5 %] 16.2 % *HI* (11/05/14 9:48 AM) Platelet [150-400 194 10*3/uL 10*3/uL] (11/05/14 9:48 AM) MPV [8.8-14.8 fL] 9.9 fL (11/05/14 9:48 AM) Neutrophils [50-70 65 % %] (11/05/14 9:48 AM) [place] [0-1 %] 1 % (11/05/14 9:48 AM) Lymphocytes [20-40 15 % %] *LOW* (11/05/14 9:48 AM) Monocytes [4-8 %] 18 % *HI* (11/05/14 9:48 AM) Eosinophils [0-6 %] 0 % (11/05/14 9:48 AM) Basophils [0-2 %] 1 % (11/05/14 9:48 AM) Neutro Absolute 4.94 10*3 [2.50-7.00 10*3] (11/05/14 9:48 AM) Lymph Absolute 1.14 10*3 [1.00-4.00 10*3] (11/05/14 9:48 AM) [place] Absolute 1.37 10*3 [0.20-0.80 10*3] *HI* (11/05/14 9:48 AM) Eos Absolute 0.00 10*3 [0.00-0.60 10*3] (11/05/14 9:48 AM) Baso Absolute 0.08 10*3 [0.00-0.30 10*3] (11/05/14 9:48 AM) Differential Manual *ABN* (11/05/14 9:48 AM) Immunizations No data available for this section Procedures No data available for this section Social History Social History Type Response Smoking Status Current every day smoker; Type: Cigarettes; Tobacco use per day: Less than Pack; Number of years: 46 Assessment and Plan Extracted from: Title: Office Visit Note Author: Magdalena Plascencia MD Date: 11/05/14 Assessment/Plan Advanced COPD PFT Atrial flutter Appt with cardilogist Cardiomegaly Appt with food tester Elevated d-dimer Ordered: CTA Chest Hypoxia chronic oxygen Schizophrenia SOB (shortness of breath) Ordered: Request for Cardiovascular Echo Tachycardia Ordered: Request for Cardiovascular Echo Tobacco user advised cessation; he's not interested in that.
--- OUTSIDE RECORDS SUMMARY | 2016-09-29 18:40 | XMS REPORT | CCD ---
Author Author [facility] Organization Unknown Address [address], [place] [id number] Phone 0 Care Team Providers Care Budget Report Clerk Name Role Phone ADILENE PEREZ Attending Physician [phone] Vital Signs Unknown or Not Available. Allergies Unknown or Not Available. Procedures Unknown or Not Available. History of Immunizations Immunization Code Date pneumococcal polysaccharide PPV23 33 03/2012 pneumococcal polysaccharide PPV23 33 05/2012 Influenza, seasonal, injectable 141 05/07 Influenza, seasonal, injectable 141 05/27 Problems Unknown or Not Available. Results BASIC METABOLIC - Collect Date/Time: 11/02/2015 09:10 Test Name Code Test Result Test Units Test Ref Range GLUCOSE 235 mg/dL L=70 H=110 BUN 21 mg/dL L=7 H=18 CREATININE 0.99 mg/ dL L=0.60 H=1.30 AGE 60 YEARS GFR 77.1 SODIUM 137 mmol/L L=136 H=145 POTASSIUM 4.2 mmol/ L L=3.5 H=5.1 CHLORIDE 101 mmol/L L=98 H=107 CO2 33 mmol/L L=21 H=32 CALCIUM 8.9 mg/dL L=8.5 H=10.1 HGB A1C - Collect Date/Time: 11/02/2015 09:10 Test Name Code Test Result Test Units Test Ref Range HGB A1C 6.4 % L=4.5 H=6.2 eAG 137 mg/dL CBC W/ DIFF - Collect Date/Time: 11/02/2015 09:10 Test Name Code Test Result Test Units Test Ref Range WBC 9.9 x10^3 L=4.8 H=10.8 RBC 3.46 x10^6 L=4.70 H=6.10 HEMOGLOBIN 10.9 g/ dL L=14.0 H=18.0 HEMATOCRIT 33.6 % L=42.0 H=52.0 MCV 97 fL L=80 H=100 MCH 31.6 pg L=27.0 H=33.0 MCHC 32.6 g/dL L=33.0 H=37.0 RDW 20.4 % L=11.5 H=14.5 PLATELETS 279 x10^3 L=150 H=450 MPV 8.1 fL L=7.8 H=11.0 NEUTROPHILS 73.6 % L=40.0 H=80.0 LYMPHOCYTES 15.4 % L=20.0 H=45.0 MONOCYTES 10.1 % L=0.0 H=10.0 EOSINOPHILS 0.8 % L=0.0 H=5.0 BASOPHILS 0.1 % L=0.0 H=2.0 SEG 68 %% L=40 H=80 BAND 2 %% L=0 H=5 LYMPH 17 %% L=20 H=45 MONO 13 %% L=0 H=10 EOS 0 %% L=0 H=5 BASO 0 %% L=0 H=2 ATYP LYMPH 0 %% L=0 H=10 META 0 %% L=0 H=1 REFLEX MAN DIFF YES N/A RBC MORPHOLOGY SEE BELOW N/A ANISO 1+ N/A NORMAL: NONE SEEN POIK NONE SEEN N/A NORMAL: NONE SEEN HYPO SLIGHT N/A NORMAL: NONE SEEN MICRO NONE SEEN N/A NORMAL: NONE SEEN MACRO NONE SEEN N/A NORMAL: NONE SEEN POLY NONE SEEN N/A NORMAL: NONE SEEN TOXIC GRAN NONE SEEN N/A NORMAL: NONE SEEN NUCLEATED RBC NONE SEEN N/A NORMAL: NONE SEEN Active Medications Unknown or Not Available. Medications Administered During Visit Unknown or Not Available. Encounters Unknown or Not Available. Social History Smoking Status Code Start Date End Date Unknown if ever smoked [id number] Patient Decision Aids Unknown or Not Available. Discharge Instructions You were admitted to [facility] on 11/02/2015 10:16 You had the following tests done: BASIC METABOLIC CBC W/ DIFF HGB A1C You were discharged from [facility] on 11/02/2015 10:16 Should you have any questions prior to [...]
--- OUTSIDE RECORDS SUMMARY | 2016-09-29 18:40 | XMS REPORT | Referral Summary ---
Author Author [facility] Organization [facility] Address Unknown Phone Unavailable Care Team Providers Care Coach Tour Driver Name Role Phone Rivera Plascencia Primary Care Physician [phone] Encounter Date(s): 09/21/15 - 09/21/15 [facility] [address] [place] [address] Discharge Disposition: 01-Home or Self Care Attending Physician: Alexsander Leonardo MD Admitting Physician: Alexsander Leonardo MD Vital Signs No data available for [...] Oral, Bedtime (once a day), [facility] [phone], # 60 tabs, 0 Refill(s) Start Date: [...] # 180 mL, eRx: [facility] - [place] - [place], [place], USE ONE vial THREE TIMES DAILY [...] 0 Refill(s) Start Date: 11/05/14 Status: Ordered [place] 5 mg-325 mg oral tablet 1 tabs, [...]
--- OUTSIDE RECORDS SUMMARY | 2016-09-29 18:51 | XMS REPORT | Continuity of Care Document ---
Author Author [facility] Organization [facility] Address Unknown Phone Unavailable Care Team Providers Care C Python Developer Name Role Phone DODIE PASTOR DO Primary Care Physician [phone] Insurance Providers Payer Name Policy Number Subscriber Name Relationship [facility] [id number] Samantha Trent 01 Self / Same As Patient Chief Complaint and Reason for Visit Chief Complaint Respiratory Problem Reason for Visit [id number] Mild CHF Problems Medical Problems Problem Onset [...] 10 Meq PO DAILY 08/18/13 Active Tiotropium [place] Monohydrate 1 IN 08/18/13 Active Folic Acid [...] F (96.0 - 99.9) Temperature (Calculated Celsius) 36.72250 degrees C Temperature Source Oral Temperature Source [...] H 120-[address] LOUIE AT [phone] SSW Cocaine Screen July 11, 2010 [...] 9:17am 0.0 mg/dL N 0-0.4 [facility] Screen (T) July 11, 2010 [...] N 40-[address] LOUIE AT [phone] SSW Hematocrit June 29, 2014 9:25pm 36.3 [...] 9:17am 0.5 mg/dL N 0.1-0.8 [facility] LDL Cholesterol August 17, 2011 10:35am 145 mg/dL H 25-[address] LOUIE AT [phone] SSW Lipase January 11, 2006 8:08am [...] N 45-[address] LOUIE AT [phone] SSW Troponin I June 29, 2014 9:25pm [...] 2009 7:27am Rare /hpf NONE Urine Specific [place] September 14, 2012 12:00am 1.025 1.005-1.030 COMMENT: [...] N 5-[address] LOUIE AT [phone] SSW White Blood Count June 29, 2014 [...] Encounters Encounter Location Date/Time Departed Emergency Room [facility] 06/29/14 9:15pm Office Visit NIA HARTMAN 03/30/14 3:45pm Discharged Inpatient [facility] 08/18/13 11:15pm Discharged Inpatient [facility] 07/14/13 10:27am Discharged Inpatient [facility] 07/12/13 2:22am Departed Emergency Room [facility] 07/08/13 12:31pm Discharged Recurring [facility] 03/16/11 7:10pm Discharged Recurring [facility] 03/16/11 7:00pm Recent Diagnosis
--- NOTE | 2016-09-29 18:52 | ERPDOC ---
Departure Disposition Decision Date: Sep 29, 2016 Disposition Decision Time: 20:30 Disposition: 01 DISCHARGED HOME, SELF-CARE Impression Impression Impression: Primary Impression: Chest pain Chest pain type: other chest pain Qualified Codes: R07.89 - Other chest pain Condition: Improved Seen By: Physician only Referrals: ADILENE PEREZ MD (Family) MARYBEL LAWTON MD 3 Days Patient Instructions: Chest Pain (ED) Problems/Meds/Labs Reviewed?: Yes Medications reviewed and manag: Yes Additional Instructions: 1) CONTINUE HOME MEDICATIONS DIRECTED 2) FOLLOW UP WITH DR. LAWTON IN NEXT 2-4 DAYS 3) RETURN TO ER NEEDED FOR WORSENING SYMPTOMS OR FURTHER CONCERNS Follow up care ordered?: Yes Mental Status: Alert, Oriented HPI - Chest Pain General Chief Complaint: Chest Pain Stated Complaint: CP Time Seen by Provider: 18:41 Source: patient, EMS, half-way records HPI - Chest Pain Initial Comments 61 YO WM who presents to ER for chest discomfort. Patient reports onset of left sided, sharp, stabbing chest pain about 1700 while ambulating to dining tello for supper. Patient was short of breath with chest pain. EMS administered ASA 81 mg PO en route. Pain/Severity Scale: Now: 0/10, Worst: 4/10 1 - Sharp, stabbing chest pain Associated Symptoms: DENIES: fast HR, fever/chills, nausea/vomiting, slow HR Aspirin Treatment Today: 81 mg x 3, provided by ED (one 81 mg ASA provided by ED) Allergies: Coded Allergies: No Known Allergies (Unverified , 01/17/16) Past History Patient Surgical History Cardiac stent (patient denies any surgeries otherwise) Past Medical History Metabolic: hypercholesterolemia, hypertension Cardiac: A-fib, CHF Respiratory: COPD (oxygen dependent at 4 LPM via NC) Psychological: dementia, schizophrenia Surgical History Cardiac: cardiac bypass, cardiac stent Family History Family History Comments Non-contributory Vaccines Hx Influenza Vaccination: No Hx Pneumococcal Vaccination: No Social History Smoking Status: Current some day smoker # of Packs/Tins per Day: 1/2 # of Years: 40 Substance Use Type: does not use Alcohol Intake: none Review of Systems Constitutional Constitutional: DENIES: appetite decrease, chills, dizziness, fever, syncope Eyes General: DENIES: erythema, exudate, photophobia Vision: DENIES: blurring, double vision ENMT Balance: DENIES: ataxia, falling to one side Sinuses: DENIES: congestion Nose: DENIES: nosebleeds Mouth/Throat: DENIES: change in swallowing, painful swallowing, sore throat Cardiovascular Cardiac: dyspnea on exertion, see HPI Rhythm/Rate: DENIES: irregular beat, palpitations Pulmonary Respiratory: cough, dyspnea (chronic due to O2 dependent COPD), see HPI GI Upper Abdomen: DENIES: nausea, vomiting Lower Abdomen: DENIES: diarrhea General: DENIES: burning, dysuria, frequency, pain, urgency Integumentary Skin: DENIES: rash Neurological General: DENIES: dysarthria, seizures, syncope Physical Exam General General Nourishment: well nourished, well developed, appears stated age, no acute distress Vitals and Pain First Documented Vital Signs Date Time Temp Pulse Resp B/P Pulse Ox O2 Delivery O2 Flow Rate FiO2 09/29/16 18:35 94 Nasal Cannula 4.00 09/29/16 18:35 98.4 89 19 98/54 Weight: Kilograms: 97.800 Height (feet): 5 Height (inches): 5.00 Triage Pain Scale: RN VS reviewed by Provider: Yes Normal Exams: Head: Normocephalic w/o trauma Eyes: Pupils are PERRLA w/ EOMI, No scleral icterus ENMT: No facial trauma, nasal exudates, pharyngeal erythema Abdomen: Bowel sounds positive, soft, non-tender, non-distended, no hepatosplenomegaly, masses or bruits noted Lymphatic: No lymphadenopathy Integumentary: No rashes, hives, or bruising noted Neurologic: Patient is alert, and oriented, cranial nerves, motor/sensory/ cerebellar, exams w/o gross deficits Psychiatric: Patient exhibits, appropriate attention, emotion and affect Respiratory (brief) Respiratory: FOUND: wheezes (scattered wheezes bilaterally), NOT FOUND: rales Cardiovascular (brief) Cardiac: FOUND: pedal edema (mild bilateral pedal edema), regular rate, regular rhythm Capillary Refill: <2 sec Differential Diagnoses Considering: Acute CT, Anxiety/Panic, Angina, CHF, Esophageal Spasm, Pericarditis, Pneumonia, Pulmonary Edema Progress Results/Orders Orders Procedure Category Date Status Time Cbc W/Auto LAB 09/29/16 Complete Diff-Reflex Manual 18:50 Cmp - Comprehensive LAB 09/29/16 Complete Metabolic 18:50 Probnp LAB 09/29/16 Complete 18:50 Troponin I W LAB 09/29/16 Complete Hemolysis Index 18:50 INR LAB 09/29/16 Complete 18:50 Tsh - Thyroid Stim LAB 09/29/16 Complete Hormone 18:50 Magnesium LAB 09/29/16 Complete 18:50 EKG EKG 09/29/16 Taken 18:50 Chest 1 View RAD 09/29/16 Resulted 18:50 Iv Lock (Ed Only) EDM 09/29/16 Transmitted 18:50 Aspirin (Asa) PHA 09/29/16 Complete 19:00 Nitroglycerin PHA 09/29/16 Complete (Nitrostat) 19:00 Albuterol Sulfate PHA 09/29/16 Complete (Proventil 2.5 Mg/3 Ml 19:00 Lorazepam (Ativan) PHA 09/29/16 Complete 19:45 Normal Saline (Normal PHA 09/29/16 Complete Saline Iv) 20:00 Lab Results Laboratory Tests Test 09/29/16 18:55 09/29/16 18:56 Glucometer 376mg/dL White Blood Count 7.3T/MM3 Red Blood Count 3.24M/MM3 Hemoglobin 10.7GM/DL Hematocrit 33.6% Mean Corpuscular Volume 103.7UM3 Mean Corpuscular Hemoglobin 33.0UUG Mean Corpuscular Hemoglobin Concent 31.8GM/DL RDW Standard Deviation 49.5FL Platelet Count 195T/MM3 Mean Platelet Volume 10.6UM3 Immature Granulocyte % (Auto) 1.1% Neutrophils (%) (Auto) 62.1% Lymphocytes (%) (Auto) 23.6% Monocytes (%) (Auto) 11.0% Eosinophils (%) (Auto) 1.9% Basophils (%) (Auto) 0.3% Absolute Immature Granulocyte (auto 0.08T/MM3 Absolute Neutrophils (auto) 4.5T/MM3 Absolute Lymphocytes (auto) 1.7T/MM3 Absolute Monocytes (auto) 0.8T/MM3 Absolute Eosinophils (auto) 0.1T/MM3 Absolute Basophils (auto) 0.0T/MM3 Prothromb Time International Ratio 1.06 Turbidity 22 Sodium Level 135MEQ/L Potassium Level 4.4MEQ/L Chloride Level 92MEQ/L Carbon Dioxide Level 31MEQ/L Anion Gap 12MEQ/L Blood Urea Nitrogen 19.0MG/DL Creatinine 0.8MG/DL Glomerular Filtration Rate Calc 98 BUN/Creatinine Ratio 24RATIO Glucose Level 428MG/DL Calculated Osmolality 280MOSM/KG Calcium Level 8.8MG/DL Magnesium Level 1.6MG/DL Total Bilirubin 0.30MG/DL Icterus Index < 2 Aspartate Amino Transf (AST/SGOT) 28U/L Alanine Aminotransferase (ALT/SGPT) 43U/L Alkaline Phosphatase 94U/L Troponin I < 0.012ng/ml [id number] Natriuretic Peptide 207PG/ML Total Protein 6.3G/DL Albumin 3.4G/DL Globulin 2.9G/DL Albumin/Globulin Ratio 1.2RATIO Thyroid Stimulating Hormone (TSH) 0.82MIU/L Chemistry Specimen Hemolysis < 15 Medications Current ED Medications Aspirin (ASA) 324 mg O ONCE PO Last administered on 09/29/16 19:03; Start at 19:00; Stop 09/29/16 at 19:01; Status DC Nitroglycerin (Nitrostat) 0.4 mg Q5MIN PRN SL CHEST PAIN; Start 09/29/16 at 19: 00; Stop 09/29/16 at 21:38; Status DC Albuterol Sulfate (Proventil 2.5 Mg/3 ml) 2.5 mg O ONCE AEROSOL Last administered on 09/29/16 19:10; Start 09/29/16 at 19:00; Stop 09/29/16 at 19:01 ; Status DC Lorazepam 1 mg 1 mg O ONCE IV Last administered on 09/29/16 19:40; Start at 19:45; Stop 09/29/16 at 19:46; Status DC Sodium Chloride (Normal Saline IV) 1,000 ml @ 0 mls/hr Q0M ONCE IV Last administered on 09/29/16 20:01; Start 09/29/16 at 20:00; Stop 09/29/16 at 20:01 ; Status DC Progress Progress 1915: NTG held by nursing staff due to hypotension. Patient reports chest discomfort is 3/10. 1935: Patient complains of "panic attack" has history of anxiety. Ativan ordered. 1949: Patient reports his chest pain is "gone" after the Ativan 1 mg IV 1999: Patient refuses admission/observation to rule out AMI. I advised patient that if he is having an AMI that is a potential risk. Patient states, "Well, if I then I . If I have a heart attack, then I have a heart attack. I'm not staying." EKG EKG : Rate: 60-100 Rhythm: sinus QRS: RBBB ST/T: non-specific changes Interpreted by: signing physician Consult/PCP Consult/PCP : Physician Contacted: Irene with Dr. Lawton Time Called: 19:52 Time of first response: 19:56 Type of discussion: Admit Discussion/PCP Discussion Details Discussed case. Will OBS patient to rule out AMI JOHN REDDING MD Sep 29, 2016 18:52
--- OUTSIDE RECORDS SUMMARY | 2016-09-29 18:52 | XMS REPORT | Continuity of Care Document ---
Author Author [facility] Organization [facility] Address Unknown Phone Unavailable Care Team Providers Care Conveyor System Dispatcher Name Role Phone DODIE PASTOR DO Primary Care Physician [phone] Insurance Providers Payer Name Policy Number Subscriber Name Relationship [facility] Eren [id number] Samantha Trent 01 Self / Same As Patient Advance Directives Directive Response Recorded Date/Time Patient Resuscitation Status Full Code 10/28/14 7:32pm Advance Directives Yes 10/28/14 7:32pm Living Will No 10/28/14 7:32pm Health Care Power of Vessel Liner Yes 10/28/14 7:32pm Chief Complaint and Reason [...] Meq PO DAILY 08/18/13 10/28/14 Discontinued Tiotropium [place] Monohydrate 1 IN 08/18/13 Active Folic Acid [...] F (96.0 - 99.9) Temperature (Calculated Celsius) 36.07069 degrees C Temperature Source Oral Temperature Source [...] H 120-[address] LOUIE AT [phone] SSW Cocaine Screen July 11, 2010 6:15am [...] 9:17am 0.0 mg/dL N 0-0.4 [facility] (T) July [...] N 40-[address] LOUIE AT [phone] SSW Hematocrit October 28, 2014 2:55pm 35.7 [...] 9:17am 0.5 mg/dL N 0.1-0.8 [facility] Influenza Virus Type A (PCR) June 29, 2014 9:40pm Positive NEGATIVE CALLED POSITIVE FLU A TO ER / 2305/ 06/29/14 Influenza Virus Type B (PCR) June 29, 2014 9:40pm Negative NEGATIVE LDL Cholesterol August 17, 2011 10:35am 145 mg/dL H 25-[address] LOUIE AT [phone] SSW Lipase January 11, 2006 8:08am 8 [...] N 45-[address] LOUIE AT [phone] SSW Troponin I October 28, 2014 [...] 03 Urine Color October 28, 2014 7:00pm [place] SOURCE: URINE, RANDOMHAS SPECIMEN BEEN OBTAINED/COLLECTED? Y [...] RANDOMHAS SPECIMEN BEEN OBTAINED/COLLECTED? Y Urine Specific [place] October 28, 2014 7:00pm >=1.030 1.005-1.030 SOURCE [...] N 5-[address] LOUIE AT [phone] SSW White Blood Count October 28, 2014 2:55pm 8.2 K/uL N 5.0-10.0 Blood Culture Blood June 29, 2014 10:09pm No growth. Gram Stain Sputum-Expectorated Sputum July 08, 2013 1:46pm Procedures Procedure Status Date Provider(s) THER/PROPH/DIAG IV INF INIT completed 06/29/14 MARÍA ELENA SIMEON M.D. TX/PRO/DX INJ NEW DRUG ADDON completed 06/29/14 MARÍA ELENA SIMEON M.D. Encounters Encounter Location Date/Time Discharged Inpatient [facility] 10/29/14 10:47am Departed Emergency Room [facility] 06/29/14 9:15pm Office Visit NIA HARTMAN 03/30/14 3:45pm Discharged Recurring [facility] 03/16/11 7:10pm Discharged Recurring [facility] 03/16/11 7:00pm Recent Diagnosis Acute hypoxia Chronic congestive heart failure Chronic obstructive lung disease DEPRESSIVE DISORDER NEC COPD with acute exacerbation Anasarca Diabetes mellitus, type 2 Abdominal distention Anasarca Ascites Scrotal swelling
[2016-09-29] MEDS ORDERED: NITROGLYCERIN 0.4 MG SUBLINGUAL TABLET SL PRN (19:00)
[2016-09-29] MEDS ORDERED: ALBUTEROL INH.SOLN. 2.5mg/3ml (0.083%) Neb. AEROSOL ONE (19:00)
[2016-09-29] MEDS ORDERED: ASPIRIN 81 MG CHEWABLE TABLET PO ONE (19:00)
[2016-09-29] MEDS ORDERED: CALC1TAB PO (19:01)
[2016-09-29] MEDS ORDERED: ATOR10TA64 PO (19:01)
[2016-09-29 19:05] LABS: BASOPHILS % (AUTO) 0.3 % (0-2); EOSINOPHILS # (AUTO) 0.1 T/MM3 (0-0.5); EOSINOPHILS % (AUTO) 1.9 % (0-4); HCT - HEMATOCRIT 33.6 % (41-53); HGB - HEMOGLOBIN 10.7 GM/DL (13.5-17.5); IMMATURE GRANULOCYTE # (AUTO) 0.08 T/MM3 (0.00-0.03); IMMATURE GRANULOCYTE % (AUTO) 1.1 % (0.0-0.5); INR 1.06 (0.76-1.04); LYMPHOCYTES # (AUTO) 1.7 T/MM3 (1-4.8); LYMPHOCYTES % (AUTO) 23.6 % (23-45); MEAN CORPUSCULAR HGB CONC(MCHC 31.8 GM/DL (31-37); MEAN CORPUSCULAR VOLUME 103.7 UM3 (80-100); MEAN PLATELET VOLUME 10.6 UM3 (9.4-12.4); MONOCYTES # (AUTO) 0.8 T/MM3 (0-0.8); NEUTROPHILS #(AUTO)-ABSOLUTE 4.5 T/MM3 (1.8-7.7); NEUTROPHILS % (AUTO) 62.1 % (33-66); PROTHROMBIN TIME 11.5 SEC (9.31-12.49); RED BLOOD COUNT 3.24 M/MM3 (4.50-5.90); WBC - WHITE BLOOD COUNT 7.3 T/MM3 (4.5-11.0)
[2016-09-29 19:10] LABS: ALBUMIN 3.4 G/DL (3.5-5.0); ALBUMIN/GLOBULIN RATIO 1.2 RATIO (1.1-2.2); ALKALINE PHOSPHATASE 94 U/L (38-126); ALT (SGPT) 43 U/L (21-72); ANION GAP 12 MEQ/L (5-15); AST (SGOT) 28 U/L (17-59); BUN/CREATININE RATIO 24 RATIO (6-26); CALCIUM 8.8 MG/DL (8.4-10.2); CHLORIDE 92 MEQ/L (98-107); CO2 - CARBON DIOXIDE 31 MEQ/L (22-30); CREATININE 0.8 MG/DL (0.8-1.5); GLOMERULAR FILTRATION RATE 98; GLUCOSE 428 MG/DL (75-110); MAGNESIUM 1.6 MG/DL (1.6-2.3); POTASSIUM 4.4 MEQ/L (3.6-5); SODIUM 135 MEQ/L (134-144); TOTAL PROTEIN 6.3 G/DL (6.3-8.2)
[2016-09-29] MEDS ORDERED: PALI9TAB4 PO (19:14)
[2016-09-29] MEDS ORDERED: PALI1.5T2 PO (19:14)
[2016-09-29] MEDS ORDERED: NICO1PAT16 TD (19:14)
[2016-09-29] MEDS ORDERED: BUPR-51 PO (19:17)
[2016-09-29] MEDS ORDERED: FURO40TA5 PO (19:22)
[2016-09-29 19:23] LABS: PROBNP 207 PG/ML (0-175)
[2016-09-29] MEDS ORDERED: LOPE-150 PO (19:24)
[2016-09-29] MEDS ORDERED: IPRA3AMP AEROSOL ×2 (19:27→19:28)
[2016-09-29] MEDS ORDERED: INSU100V SQ ×2 (19:27→19:28)
[2016-09-29] MEDS ORDERED: HYDR-4072 PO (19:30)
--- NOTE | 2016-09-29 19:35 | NUR ---
UPDATE PATIENT REPORTS "I'M HAVING AN ANXIETY ATTACK, I WANT TO GET UP AND WALK" DR REDDING UPDATED, ORDERS REC'D. PATIENT CONTINUES TO REPORT INTERMITTENT CHEST PAIN AT 09/24
[2016-09-29 19:40] LABS: THYROID STIM HORMONE-TSH 0.82 MIU/L (0.47-4.68)
[2016-09-29] MEDS ORDERED: LORAZEPAM 2 MG/ML INJECTION IV ONE (19:45)
[2016-09-29] MEDS ORDERED: NORMAL SALINE 1,000 ML IV ONE (20:00)
--- NOTE | 2016-09-29 20:01 | NUR ---
PROVIDER DR REDDING AT BEDSIDE TO DISCUSS RESULTS AND POC
--- NOTE | 2016-09-29 20:17 | DI ---
Indication: ITS.REASON: Chest pain PROCEDURE: CHEST 1 VIEW: Encounter: Initial Comparison: June 13, 2015 Findings: Prominent interstitial markings are again seen, similar to the prior study. Prior CABG. No pleural effusion or pneumothorax. Heart size and mediastinal contours are unchanged. Impression: Stable appearance of the chest with prominent interstitial markings, some of which may be chronic although superimposed mild to moderate pulmonary edema cannot be entirely excluded. Recommend clinical and laboratory correlation. .
--- NOTE | 2016-09-29 20:30 | NUR ---
REPORT REPORT GIVEN TO RN AT [facility], NOTIFIED THAT PATIENT NEEDING RIDE BACK TO FACILITY.
[2016-09-29 21:31] VITALS: BP 135/91; PULSE 85; RESP 26; TEMP 98.4; O2SAT 93
== END 2016-09-29 21:31 | disposition home or self-care (01) ==
LOC: ED 18:32
DX: R07.89 Other chest pain (principal); R06.02 Shortness of breath; F41.0 Panic disorder [episodic paroxysmal anxiety]; I11.0 Hypertensive heart disease with heart failure; I50.9 Heart failure, unspecified; F17.200 Nicotine dependence, unspecified, uncomplicated; J44.9 Chronic obstructive pulmonary disease, unspecified; Z99.81 Dependence on supplemental oxygen
CPT/HCPCS: 71010; 80053; 82948; 83735; 83880; 84443; 84484; 85025; 85610; 93005; 94640; 96361; 96374; 99284; J2060; J7030; J7611

== ENCOUNTER 2017-04-17 15:14 | Inpatient (IN) ==
[2017-04-17] MEDS ORDERED: AMIODARONE 150mg/3ml INJECTION IV ONE (15:15)
[2017-04-17] MEDS ORDERED: EPINEPHRINE 1 MG/10 ML PFS IV ONE (15:15)
[2017-04-17] MEDS ORDERED: SODIUM BICARBONATE 8.4% (50mEq/50ml) PFS (1 amp) IVP ONE ×2 (15:15→15:47)
[2017-04-17] MEDS ORDERED: HEPARIN 1,000 UNITS/500 ML PREMIX (*CVL ONLY*) IV ONE (15:47)
[2017-04-17] MEDS ORDERED: NOREPINEPHRINE DRIP IV PRN (15:47)
[2017-04-17] MEDS ORDERED: LIDOCAINE 1% (10mg/ml) 30ml SDV INJ ONE (15:47)
[2017-04-17] MEDS ORDERED: NS IV PRN (15:47)
[2017-04-17] MEDS ORDERED: HEPARIN 1,000unit/ml INJECTION 10ml ONE (16:00)
[2017-04-17] MEDS ORDERED: NS 0 ML ONE (16:00)
--- NOTE | 2017-04-17 16:12 | CT Scan Report ---
Indication: fall, cpr PROCEDURE: CT head/brain wo con: Encounter: Initial Comparison: None Technique: Axial CT images through the head were performed without contrast. Iterative Reconstruction dose reducing technique was utilized. FINDINGS: Patient is intubated. The ventricles are of normal size, shape, and contour for the patient's age. There are scattered areas of low attenuation in the white matter which most likely represent changes from chronic microvascular ischemia. The brainstem, cerebellum, and cerebral hemispheres otherwise have a normal morphology and CT attenuation. There is no evidence of midline displacement. No hemorrhage, signs of acute territorial stroke, mass effect, mass lesions, or edema is evident. The visualized portions of the skull base, midface, and calvarium demonstrate no abnormality. The tympanic and mastoid cavities appear normal. Left frontal scalp hematoma and probable laceration. IMPRESSION: No acute intracranial abnormality or hemorrhage. .
--- NOTE | 2017-04-17 16:25 | Emergency Department Report ---
General Adult HPI - General Chief complaint: Syncope Stated complaint: post code blue - History of Present Illness HPI narrative: 62-year-old male brought in by EMS code red status post successful CODE BLUE with CPR resuscitation. Patient was at halfway and lost consciousness, falling forward off of a toilet. Nearly immediately, CPR was started and the patient was intubated. EMS arrived and assumed the code. 2 A of epinephrine were given and one amp of bicarbonate at which point ROSC. Patient was transported to [facility] and on arrival maintain spontaneous pulse and was being bagged. Cardiology was consulted for an emergency cardiac catheter. Within approximately 5 minutes of arrival in the emergency department , patient became asystolic. CPR was resumed, ultimately 2 tabs of epi and one more amp of bicarbonate were given. Dopamine was started. Patient resumed sinus rhythm with blood pressure of 70 systolic. Pulse was 65. Dopamine drip at 10 mics, VBG was drawn and pH was 7.0. Cardiology arrived to transport to Delivery Tech. Difficulty maintaining blood pressure and norepinephrine was started as well at 3 mics. Patient was taken to CT to rule out intracranial bleed from a fall, with CT showing no bleeding. Patient is to Delivery Tech at this time. - Related Data Home Medications Medication Instructions Recorded Confirmed Famotidine 20 mg PO HS #0 11/19/14 04/17/17 LORazepam [Ativan] 1 mg PO Q6H #0 11/19/14 04/17/17 Lisinopril 5 mg PO HS #0 11/19/14 04/17/17 Polyethylene Glycol 3350 [Miralax] 17 g PO BID #0 11/19/14 04/17/17 Tiotropium [place] [Spiriva] 1 cap ORAL INH DAILY #0 11/19/14 04/17/17 Thiamine HCl [Vitamin B-1] 100 mg PO DAILY #0 06/13/15 04/17/17 Docusate Sodium [Colace] 200 mg PO BID #0 08/23/15 04/17/17 Levothyroxine Sodium [Synthroid] 50 mcg PO ACB #0 08/23/15 04/17/17 Carvedilol 3.125 mg PO BID #0 12/22/15 04/17/17 Dabigatran Etexilate Mesylate 150 mg PO BID #0 12/22/15 04/17/17 [Pradaxa] Hydrocodone/Acetaminophen [[place] 1 tab PO BID #0 12/22/15 04/17/17 7.5-325 Tablet] Vitamin B Complex 1 tab PO DAILY #0 12/22/15 04/17/17 Atorvastatin Calcium 10 mg PO HS #0 09/29/16 04/17/17 Furosemide 40 mg PO BID #0 09/29/16 04/17/17 Hydrocodone/Acetaminophen 1 tab PO QID PRN #0 09/29/16 04/17/17 [Hydrocodon-Acetaminoph 7.5-325] Ipratropium/Albuterol Sulfate 1 vial AEROSOL TID #0 09/29/16 04/17/17 [Iprat-Albut 0.5-3(2.5) mg/3 ml] Paliperidone [Paliperidone ER] 1.5 mg PO DAILY #0 09/29/16 04/17/17 Paliperidone [Paliperidone ER] 9 mg PO DAILY #0 09/29/16 04/17/17 Buspirone [Buspar] 10 mg PO TID 04/17/17 04/17/17 Ceftriaxone [Rocephin] 1 gm IM DAILY 04/17/17 04/17/17 Ferrous Sulfate 650 mg PO DAILY 04/17/17 04/17/17 Fluticasone/Salmeterol [Advair Hfa 2 puff INH BID 04/17/17 04/17/17 230-21 Mcg Inhaler] Gabapentin [Neurontin] 100 mg PO DAILY 04/17/17 04/17/17 Gabapentin [Neurontin] 300 mg PO BID 04/17/17 04/17/17 Insulin Aspart [Novolog Flexpen] 5 unit SQ PRN PRN 04/17/17 04/17/17 Insulin Aspart [Novolog Flexpen] 35 unit SQ TIDWM 04/17/17 04/17/17 Insulin Detemir [Levemir Flextouch] 45 unit SQ HS 04/17/17 04/17/17 Nicotine Patch [Nicoderm] 7 mg TD DAILY 04/17/17 04/17/17 Potassium Chloride 30 mg PO DAILY 04/17/17 04/17/17 Ropinirole [Requip] 2 mg PO HS 04/17/17 04/17/17 Sertraline [Zoloft] 150 mg PO DAILY 04/17/17 04/17/17 buPROPion HCl [Bupropion HCl Sr] 150 mg PO BID 04/17/17 04/17/17 Allergies Allergy/AdvReac Type Severity Reaction Status Date / Time No Known Allergies Allergy Unverified 04/17/17 15:23 Review of Systems Limitations: ROS unobtainable due to patient's medical condition [facility] Patient Stated Medical History Chronic Obstructive Pulmonary Yes Disease (COPD) Diabetes Mellitus Type 1 Yes Depression Yes Clinic Medical History Successful cardiopulmonary resuscitation (Acute Medical) Necrotizing fasciitis (Ruled-out Medical) Septic shock due to Gram positive bacteria (Chronic Medical) Acute hyperkalemia (Acute Medical) Acute respiratory failure requiring reintubation (Acute Medical) Schizophrenia (Chronic Medical) COPD exacerbation (Chronic Medical) Cardiac arrest (Acute Medical) Acute respiratory failure with hypercapnia (Acute Medical) Acute kidney failure (Acute Medical) Anuria (Acute Medical) Bilateral pneumonia (Acute Medical) Infected sebaceous cyst of skin (Acute Medical) Coma scale, best motor response, none, 24 hours or more after hospital admission (Acute Medical) - Social History Smoking status: Unknown if ever smoked Substance use type: other (unable to assess as patient is in the middle of a code) Physical Exam - Limitations Limitations: altered mental status, physical limitation - General General appearance: other (CODE BLUE) - Neurological Exam Neurological exam: Present: other (nonresponsive) Course Vital Signs Temperature 96 F L 04/17/17 15:25 Pulse Rate 61 04/17/17 15:25 Respiratory Rate 16 04/17/17 15:25 Blood Pressure 78/49 04/17/17 15:25 Temperature 101.1 F H 04/20/17 13:00 Pulse Rate 88 04/20/17 14:00 Respiratory Rate 5 L 04/20/17 14:00 Blood Pressure 120/56 04/20/17 14:00 Pulse Oximetry 100 04/20/17 14:00 Medical Decision Making - MDM Narrative Medical decision making narrative: Please see initial history of present illness as medication record and care of patient is documented there. Patient was transferred to catheter lab were no acute cardiac injury was noted. He was then sent to CCU and later a large abscess was noted on his back. This was drained in the ICU. - Lab Data Result diagrams: 04/19/17 04:49 04/19/17 04:49 Lab Results 04/17/17 04/17/1704/17/17 Range/Units 15:32 15:32 15:32 WBC 23.5 H (4.5-11.0) T/MM3 RBC 3.24 L (4.50-5.90) M/MM3 Hgb 10.7 L (13.5-17.5) GM/DL Hct 36.0 L (41-53) % MCV 111.1 H (80-100) UM3 MCH 33.0 (26-34) UUG MCHC 29.7 L (31-37) GM/DL RDW Std Deviation 51.9 H (36.9-50.2) FL Plt Count 197 (130-400) T/MM3 MPV 10.5 (9.4-12.4) UM3 Immature Gran % (Auto) Not performed Neut % (Auto) Not performed Lymph % (Auto) Not performed [place] % (Auto) Not performed Eos % (Auto) Not performed Baso % (Auto) Not performed Neut # (Auto) Not performed Lymph # (Auto) Not performed [place] # (Auto) Not performed Eos # (Auto) Not performed Baso # (Auto) Not performed Abs Immat Gran (auto) Not performed Neutrophils % (Manual) 39.0 (33-66) % Band Neutrophils % 17.0 H (0-6) % Lymphocytes % (Manual) 22.0 L (23-45) % Monocytes % (Manual) 16.0 H (0-9.0) % Myelocytes % 6.0 H (0-0) % Neutrophils # (Manual) 9.2 H (1.8-7.7) T/MM3 Band Neutrophils # 4.0 T/MM3 Lymphocytes # (Manual) 5.2 H (1-4.8) T/MM3 Monocytes # (Manual) 3.8 H (0-0.8) T/MM3 Myelocytes # 1.4 T/MM3 Nucleated RBCs 1 RBC Morph Comment Normal VBG pH 7.060 L (7.31-7.41) VBG pCO2 68 H (40-52) MMHG VBG pO2 53 H (40-52) MMHG VBG HCO3 19 L (22-26) MEQ/L VBG Total CO2 21.4 MEQ/L VBG O2 Saturation 70.0 % VBG Base Excess -11.7 L (-2.0-2.0) MMOL/L O2 Delivery Method Ambu-bag, % FiO2 % 100 Turbidity < 20 (0-20) Sodium 138 (134-144) MEQ/L Potassium 6.7 H* (3.6-5) MEQ/L Chloride 102 (98-107) MEQ/L Carbon Dioxide 19 L (22-30) MEQ/L Anion Gap 17 H (5-15) MEQ/L BUN 26.0 H (9-20) MG/DL Creatinine 1.4 (0.8-1.5) MG/DL GFR Calculation 51 BUN/Creatinine Ratio 19 (6-26) RATIO Glucose 90 (75-110) MG/DL Calculated Osmolality 271 (261-280) MOSM/KG Calcium 8.3 L (8.4-10.2) MG/DL Total Bilirubin 0.20 (0.20-1.30) MG/DL Icterus Index < 2 (0-7) AST 202 H (17-59) U/L ALT 190 H (21-72) U/L Alkaline Phosphatase 113 (38-126) U/L Troponin I 0.052 (0-0.12) ng/ml Total Protein 6.1 L (6.3-8.2) G/DL Albumin 2.9 L (3.5-5.0) G/DL Globulin 3.2 (2.4-3.6) G/DL Albumin/Globulin Ratio 0.9 L (1.1-2.2) RATIO Lipase (23-300) U/L Specimen Hemolysis 26 H (0-25) 04/17/17 04/17/17 Range/Units 15:32 15:49 WBC (4.5-11.0) T/MM3 RBC (4.50-5.90) M/MM3 Hgb (13.5-17.5) GM/DL Hct (41-53) % MCV (80-100) UM3 MCH (26-34) UUG MCHC (31-37) GM/DL RDW Std Deviation (36.9-50.2) FL Plt Count (130-400) T/MM3 MPV (9.4-12.4) UM3 Immature Gran % (Auto) Neut % (Auto) Lymph % (Auto) [place] % (Auto) Eos % (Auto) Baso % (Auto) Neut # (Auto) Lymph # (Auto) [place] # (Auto) Eos # (Auto) Baso # (Auto) Abs Immat Gran (auto) Neutrophils % (Manual) (33-66) % Band Neutrophils % (0-6) % Lymphocytes % (Manual) (23-45) % Monocytes % (Manual) (0-9.0) % Myelocytes % (0-0) % Neutrophils # (Manual) (1.8-7.7) T/MM3 Band Neutrophils # T/MM3 Lymphocytes # (Manual) (1-4.8) T/MM3 Monocytes # (Manual) (0-0.8) T/MM3 Myelocytes # T/MM3 Nucleated RBCs RBC Morph Comment VBG pH 7.000 L (7.31-7.41) VBG pCO2 82 H (40-52) MMHG VBG pO2 40 (40-52) MMHG VBG HCO3 20 L (22-26) MEQ/L VBG Total CO2 22.7 MEQ/L VBG O2 Saturation 46.0 % VBG Base Excess -12.2 L (-2.0-2.0) MMOL/L O2 Delivery Method Vent, adult % FiO2 % 100 Turbidity (0-20) Sodium (134-144) MEQ/L Potassium (3.6-5) MEQ/L Chloride (98-107) MEQ/L Carbon Dioxide (22-30) MEQ/L Anion Gap (5-15) MEQ/L BUN (9-20) MG/DL Creatinine (0.8-1.5) MG/DL GFR Calculation BUN/Creatinine Ratio (6-26) RATIO Glucose (75-110) MG/DL Calculated Osmolality (261-280) MOSM/KG Calcium (8.4-10.2) MG/DL Total Bilirubin (0.20-1.30) MG/DL Icterus Index (0-7) AST (17-59) U/L ALT (21-72) U/L Alkaline Phosphatase (38-126) U/L Troponin I (0-0.12) ng/ml Total Protein (6.3-8.2) G/DL Albumin (3.5-5.0) G/DL Globulin (2.4-3.6) G/DL Albumin/Globulin Ratio (1.1-2.2) RATIO Lipase 37 (23-300) U/L Specimen Hemolysis (0-25) Disposition Clinical Impression: Cardiac arrest Disposition: 02 To [facility] Acute Care Condition: Critical Time of Disposition: 12:31 - Seen By: physician
--- OUTSIDE RECORDS SUMMARY | 2017-04-17 17:19 | External Medical Summary | CCD ---
:1955 Author Name SUZY MALLORY Address [address], [place] [id number] Care Team Providers Name Role Phone ADILENE PEREZ Attending Physician Unavailable Vital Signs Unknown or Not Available. Allergies Unknown or Not Available. Procedures Unknown or Not Available. History of Immunizations Immunization Code Date pneumococcal polysaccharide PPV23 33 09/25/2011 pneumococcal polysaccharide PPV23 33 04/28/2012 Influenza, seasonal, injectable 141 05/07/2012 Influenza, seasonal, injectable 141 05/27/2013 Problems Unknown or Not Available. Results TSH - Collect Date/Time: 04/03/2016 08:55 Test Name Code Test Result Test Units Test Ref Range TSH 1.17 uIU/mL L=0.36 H=3.74 Active Medications Unknown or Not Available. Medications Administered During Visit Unknown or Not Available. Encounters Encounter Diagnosis Diagnosis Code Start Date Hypothyroidism, unspecified E039 04/03/2016 Social History Smoking Status Code Start Date End Date Unknown if ever smoked [id number] Patient Decision Aids Unknown or Not Available. Discharge Instructions You were admitted to [facility] on 04/03/2016 12:01 with a principal diagnosis of Hypothyroidism, unspecified You had the following tests done: TSH You were discharged from [facility] on 04/03/2016 12:01 Should you have [...]
--- OUTSIDE RECORDS SUMMARY | 2017-04-17 17:19 | External Medical Summary | CCD ---
:1955 Author Name SUZY MALLORY Address [address] [place] [id number] Care Team Providers Name Role Phone ADILENE PEREZ Attending Physician Unavailable Vital Signs Unknown or Not Available. Allergies Unknown or Not Available. Procedures Unknown or Not Available. History of Immunizations Immunization Code Date pneumococcal polysaccharide PPV23 33 09/25/2011 pneumococcal polysaccharide PPV23 33 04/28/2012 Influenza, seasonal, injectable 141 05/07/2012 Influenza, seasonal, injectable 141 05/27/2013 Problems Unknown or Not Available. Results BASIC METABOLIC - Collect Date/Time: 01/10/2016 09:10 Test Name Code Test Result Test Units Test Ref Range GLUCOSE 353 mg/dL L=70 H=110 BUN 10 mg/dL L=7 H=18 CREATININE 0.79 mg/dL L=0.60 H=1.30 AGE 61 YEARS GFR 99.7 SODIUM 133 mmol/L L=136 H=145 POTASSIUM 4.3 mmol/L L=3.5 H=5.1 CHLORIDE 96 mmol/L L=98 H=107 [...] Code Start Date Essential (primary) hypertension I10 01/10/2016 Social History Smoking Status Code Start Date End Date Unknown if ever smoked [id number] Patient Decision Aids Unknown or Not Available. Discharge Instructions You were admitted to [facility] on 01/10/2016 10:44 with a principal diagnosis of Essential (primary) hypertension You had the following tests done: BASIC METABOLIC PRO B-TYPE NATRIURETIC PEPTIDE You were discharged from [facility] on 01/10/2016 10:45 Should you have [...]
--- OUTSIDE RECORDS SUMMARY | 2017-04-17 17:20 | External Medical Summary | Referral Summary ---
:1955 Author Organization [facility] Address [address] [place] [address] [place] [phone] Care Team Providers Name Role Phone Magdalena Plascencia Primary Care Physician Encounter VC Date(s): 12/15/14 - 12/15/14 [facility] [address] [place] [address] [place] [phone] [phone] Discharge Diagnosis: COPD type A Discharge Diagnosis: Coronary heart disease Discharge Diagnosis: Lipidemia Discharge Diagnosis: Peripheral artery disease Discharge Diagnosis: Smoking Discharge Diagnosis: Atrial flutter Discharge Disposition: 01-Home or Self Care Attending Physician: Michael Elizalde MD Referring Physician: Magdalena Plascencia MD Vital Signs Most recent to oldest [Reference Range]: 1 Peripheral Pulse Rate [60-100 bpm] 70 bpm (12/15/14 2:46 PM) Blood Pressure [90-140/60-90 mmHg] 120/80 mmHg (12/15/14 2:46 PM) Problem List Condition Effective Dates Status Health Status Informant Obesity(Confirmed) Active patient Tobacco user(Confirmed) Active patient Allergies, Adverse Reactions, Alerts No Known Medication Allergies Medications Advair HFA 230 mcg-21 mcg/inh inhalation aerosol puffs, Inhalation, BID, 0 Refill(s) Start Date: 11/05/14 Status: Orderedamiodarone 200 mg oral tablet See Instructions, 400mg TID x 7, then 200mg BID x 7, then 200mg daily, 0 Refill( s) Start Date: 11/26/14 Status: OrderedAtivan 1 mg oral tablet 1 mg 1 tabs, Oral, Bedtime (once a day), [facility] [phone], # 60 tabs, 0 Refill(s) Start Date: 05/30/15 Status: Orderedbisacodyl 10 mg rectal suppository 10 mg 1 supp, Rectal, Daily, as needed for constipation, # 10 supp, 0 Refill(s) Start Date: 11/05/14 Status: Orderedbumetanide 1 mg oral tablet 1 mg 1 tabs, Oral, TID, 0 Refill(s) Start Date: 11/26/14 Status: OrderedDuoNeb 0.5 mg-2.5 mg/3 mL inhalation solution See Instructions, USE ONE vial THREE TIMES DAILY DIRECTED, # 180 mL, eRx: [facility] - [place], [place], USE ONE vial THREE TIMES DAILY DIRECTED Start Date: 04/08/15 Status: OrderedEffexor XR 75 mg oral capsule, extended release 75 mg 1 caps, Oral, Daily, # 30 caps, 0 Refill(s) Start Date: 11/05/14 Status: Orderedfamotidine 20 mg oral tablet mg tabs, Oral, BID, 0 Refill(s) Start Date: 11/05/14 Status: Orderedfolic acid 1 mg oral tablet 1 mg 1 tabs, Oral, Daily, # 30 tabs, 0 Refill(s) Start Date: 11/05/14 Status: OrderedguaiFENesin 600 mg, Oral, q12hr, 0 Refill(s) Start Date: 11/05/14 Status: OrderedInvega 9 mg oral tablet, extended release 9 mg 1 tabs, Oral, qAM, # 30 tabs, 0 Refill(s) Start Date: 11/05/14 Status: OrderedKlor-Con M20 20 mEq, Oral, BID, 0 Refill(s) Start Date: 11/26/14 Status: Orderedlisinopril 5 mg oral tablet mg tabs, Oral, Daily, 0 Refill(s) Start Date: 11/05/14 Status: OrderedMiraLax g, Oral, Daily, 0 Refill(s) Start Date: 11/05/14 Status: Orderedmultivitamin Daily, 0 Refill(s) Start Date: 11/05/14 Status: OrderedNorco 5 mg-325 mg oral tablet 1 tabs, Oral, TID, FAX TO [facility] # 90 tabs, 0 Refill(s) Start Date: 06/20/15 Status: Orderednystatin 100,000 units/g topical powder 1 hui, Topical, TID, 0 Refill(s) Start Date: 11/26/14 Status: OrderedSpiriva 18 mcg inhalation capsule 18 mcg 1 Each, Inhalation, Daily, use two inhalations of one capsule for each dose, # 30 Each, 0 Refill(s) Start Date: 11/05/14 Status: OrderedtraZODone 100 mg oral tablet 100 mg 1 tabs, Oral, Bedtime (once a day), 0 Refill(s) Start Date: 11/05/14 Status: OrderedVentolin HFA 90 mcg/inh inhalation aerosol 1 puffs, Inhalation, BID, as needed for wheezing, # 18 g, 0 Refill(s) Start Date: 11/05/14 Status: OrderedVitamin B1 100 mg, Daily, 0 Refill(s) Start Date: 11/26/14 Status: OrderedXarelto 20 mg oral tablet 20 mg 1 tabs, Oral, qPM, # 30 tabs, 0 Refill(s) Start Date: 11/26/14 Status: OrderedZocor 20 mg oral tablet 20 mg 1 tabs, Oral, Bedtime (once a day), # 30 tabs, 0 Refill(s) Start Date: 11/05/14 Status: OrderedZyrTEC 10 mg oral tablet 10 mg 1 tabs, Oral, Daily, # 30 tabs, 0 Refill(s) Start Date: 11/05/14 Status: Ordered Results No data available for this section Immunizations No data available for this section Procedures No data available for this section Social History Social History Type Response Smoking Status Current every day smoker; Type: Cigarettes; Tobacco use per day : Less than Pack; Number of years: 46 Assessment and Plan No data available for this section
--- OUTSIDE RECORDS SUMMARY | 2017-04-17 17:20 | External Medical Summary | Referral Summary ---
:1955 Author Organization [facility] Address [address] [place] [address] Care Team Providers Name Role Phone Magdalena Plascencia Primary Care Physician Encounter VC Date(s): 10/20/15 - 10/28/15 [id number] [place] [address] Discharge Disposition: 01-Home or Self Care Attending Physician: Jessica Brown MD Admitting Physician: Joseph Whitehead MD Vital Signs Most recent to oldest [Reference Range]: 1 Temperature Oral [35.8-37.3 degC] 36.1 degC (10/28/15 8:00 AM) Temperature Temporal Artery [36.3-37.8 degC] 36.2 degC *LOW* (10/26/15 11:00 AM) Peripheral Pulse Rate [60-100 bpm] 75 bpm (10/28/15 8:07 AM) Heart Rate Monitored [60-100 bpm] 72 bpm (10/28/15 9:55 AM) Respiratory Rate [14-20 br/min] 18 br/min (10/28/15 9:45 AM) Blood Pressure [90-140/60-90 mmHg] 105/58 mmHg (10/28/15 8:07 AM) Mean Arterial Pressure, Cuff 69 mmHg (10/26/15 12:00 PM) Pulse Rate [60-100 bpm] 81 bpm (10/27/15 5:59 PM) SpO2 94 % (10/28/15 9:45 AM) Remote Telemetry Discontinued (10/26/15 8:00 PM) Problem List Condition Effective Dates Status Health Status Informant Acute pain(Confirmed) Active ETOH abuse(Confirmed) Active patient At risk for falls(Confirmed)1 Active At risk for infection(Confirmed)2 Active At risk for injury(Confirmed)3 Active At risk of pressure sore(Confirmed) Active Atrial fibrillation(Confirmed) Active patient CVA (cerebral vascular Active patient accident)(Confirmed) COPD (chronic obstructive pulmonary Active patient disease)(Confirmed) CHF (congestive heart Active patient failure)(Confirmed) Coronary artery disease(Confirmed) Active patient Depression(Confirmed) Active patient Diabetes(Confirmed) Active patient Dyspnea(Confirmed) Active patient Hyperlipidemia(Confirmed) Active patient HTN (hypertension)(Confirmed) Active patient Impaired gas exchange(Confirmed)4 Active Impaired skin integrity(Confirmed)5 Active Diabetic acidosis, type II(Confirmed) Active patient Knowledge deficit(Confirmed)6 Active Methicillin resistant Staphylococcus Active aureus(Confirmed)7 Obesity(Confirmed) Active patient Schizophrenia(Confirmed) Active patient Substance abuse(Confirmed) Active patient Tobacco user(Confirmed) Active patient 1This problem was added by Discern Expert.2Problem added automatically by system based on initiation of At Risk for Infection in Nutrition Planof [id number] added automatically by system based on initiation of Risk for Injury Plan of [id number] added automatically by system based on initiation of Impaired Gas Exchange Plan of [id number] added automatically by system based on initiation of Impaired Skin Integrity Plan of [id number] added automatically by system based on initiation of Knowledge Deficit Plan of [id number] from NOT FOUND collected 10/04/15 5:23:00 CDT Allergies, Adverse Reactions, Alerts No Known Allergies Medications albuterol 5 mg/mL (0.5%) inhalation solution 2.5 mg 0.5 mL, NEB, q2hr (scheduled), Other (See Comment), # 180 mL, 0 Refill(s) , other reason (Rx) Start Date: 10/28/15 Status: Orderedalbuterol 5 mg/mL (0.5%) inhalation solution 2.5 mg 0.5 mL, NEB, [id number], # 60 mL, 0 Refill(s) Start Date: 10/28/15 Status: Orderedaspirin 81 mg oral delayed release tablet 81 mg 1 tabs, Oral, Daily, 0 Refill(s) Start Date: 10/13/15 Status: OrderedAtivan 0.5 mg oral tablet 0.5 mg, Oral, BID, anxiety, X 30 days, # 60 tabs, 0 Refill(s) Start Date: 10/28/15 Stop Date: 11/27/15 Status: Orderedbumetanide 2 mg oral tablet 2 mg 1 tabs, Oral, BID, # 30 tabs, 0 Refill(s), other reason (Rx) Start Date: 10/28/15 Status: Orderedclobetasol 0.05% topical cream 1 hui, Topical, BID, 0 Refill(s) Start Date: 10/20/15 Status: OrderedCoreg 3.125 mg, Oral, BID, 0 Refill(s) Start Date: 10/03/15 Status: Orderedferrous sulfate 325 mg (65 mg elemental iron) oral delayed release tablet 650 mg 2 tabs, Oral, Daily, 0 Refill(s) Start Date: 10/13/15 Status: Orderedipratropium 500 mcg/2.5 mL inhalation solution 0.5 mg 2.5 mL, NEB, q2hr (scheduled), Other (See Comment), # 900 mL, 0 Refill(s) , other reason (Rx) Start Date: 10/28/15 Status: Orderedipratropium 500 mcg/2.5 mL inhalation solution 0.5 mg 2.5 mL, NEB, [id number], # 300 mL, 0 Refill(s), other reason (Rx) Start Date: 10/28/15 Status: OrderedLevemir 100 units/mL subcutaneous solution 20 units, SubCutaneous, Bedtime (once a day), # 15 mL, 0 Refill(s), other reason (Rx) Start Date: 10/28/15 Stop Date: 11/27/15 Status: Orderedlisinopril 5 mg oral tablet 5 mg 1 tabs, Oral, Bedtime (once a day), # 30 tabs, 0 Refill(s), other reason ( Rx) Start Date: 10/28/15 Status: OrderedMiraLax oral powder for reconstitution 17 g, Oral, BID, dissolve in water before taking, X 14 days, # 476 g, 0 Refill(s ), other reason (Rx) Start Date: 10/28/15 Stop Date: 11/11/15 Status: OrderedNorco 7.5 mg-325 mg oral tablet 1 tabs, Oral, q6hr, Pain Severe (7-10), X 14 days, # 56 tabs, 0 Refill(s) Start Date: 10/28/15 Stop Date: 11/11/15 Status: OrderedNovoLOG 100 units/mL subcutaneous solution 5 units, SubCutaneous, TIDWM, # 15 mL, 0 Refill(s), other reason (Rx) Start Date: 10/28/15 Status: Orderedpotassium chloride 20 mEq oral tablet, extended release 20 mEq 1 tabs, Oral, BIDWM, # 60 tabs, 0 Refill(s), other reason (Rx) Start Date: 10/28/15 Status: OrderedPradaxa 150 mg oral capsule 150 mg 1 caps, Oral, BID, 0 Refill(s) Start Date: 10/13/15 Status: OrderedpredniSONE 20 mg oral tablet See Instructions, 1 tabs Oral Daily for 3 days then half a tablet for 3 days then stop, # 4.5 tabs, 0 Refill(s), other reason (Rx) Start Date: 10/28/15 Stop Date: 11/02/15 Status: OrderedSenokot S 50 mg-8.6 mg oral tablet 2 tabs, Oral, Daily, X 14 days, # 28 tabs, 0 Refill(s), other reason (Rx) Start Date: 10/28/15 Stop Date: 11/11/15 Status: OrderedSynthroid 50 mcg, Oral, Daily, 0 Refill(s) Start Date: 10/03/15 Status: OrderedVitamin B1 100 mg, Daily, 0 Refill(s) Start Date: 11/26/14 Status: OrderedZocor 20 mg oral tablet 20 mg 1 tabs, Oral, Bedtime (once a day), # 30 tabs, 0 Refill(s) Start Date: 11/05/14 Status: OrderedZyPREXA 5 mg oral tablet 5 mg 1 tabs, Oral, Bedtime (once a day), # 30 tabs, 0 Refill(s) Start Date: 10/28/15 Status: Ordered Results Blood Gases Most recent to oldest [Reference Range]: 1 pH [7.35-7.45] 7.39 (10/24/15 9:56 AM) pCO2 Art [35-45 mmHg] 57 mmHg *HI* (10/24/15 9:56 AM) Bicarbonate [22-26 mEq/L] 34 mEq/L *HI* (10/24/15 9:56 AM) Base Excess Art [0-2] 7 *HI* (10/24/15 9:56 AM) O2 Sat Art [90.0-97.0 %] 93.6 % (10/24/15 9:56 AM) pO2 Art [80-100 mmHg] 69 mmHg *LOW* (10/24/15 9:56 AM) LPM Art 6.0 L/min (10/24/15 9:56 AM) O2 Panel Nasal Cannula (10/24/15 9:56 AM) Spec Site Radial-R (10/24/15 9:56 AM) Hematology Most recent to oldest [Reference Range]: 1 WBC [4.8-10.8 10*3/uL] 11.8 10*3/uL *HI* (10/28/15 5:29 AM) RBC [4.60-6.20] 3.40 *LOW* (10/28/15 5:29 AM) Hgb [14.0-18.0 gm/dL] 10.8 gm/dL *LOW* (10/28/15 5:29 AM) Hct [42.0-52.0 %] 34.3 % *LOW* (10/28/15 5:29 AM) MCV [82.0-99.0 fL] 100.9 fL *HI* (10/28/15 5:29 AM) MCH [27.0-32.0 pg] 31.8 pg (10/28/15 5:29 AM) MCHC [32.0-36.0 gm/dL] 31.5 gm/dL *LOW* (10/28/15 5:29 AM) RDW [11.5-14.5 %] 21.5 % *HI* (10/28/15 5:29 AM) Platelet [150-400 10*3/uL] 269 10*3/uL (10/28/15 5:29 AM) MPV [9.4-12.3 fL] 10.4 fL (10/28/15 5:29 AM) Immature Granulocytes [0.0-1.0 %] 0.4 % (10/23/15 4:25 AM) Neutrophils [51-75 %] 87 % *HI* (10/25/15 3:25 AM) Band Man [0-8 %] 1 % (10/24/15 4:21 AM) [place] Man [0-1 %] 1 % (10/24/15 4:21 AM) Lymphocytes [20-46 %] 12 % *LOW* (10/25/15 3:25 AM) Monocytes [4-11 %] 1 % *LOW* (10/25/15 3:25 AM) Eosinophils [0-4 %] 0 % (10/25/15 3:25 AM) Basophils [0-2 %] 0 % (10/25/15 3:25 AM) Neutro Absolute [1.90-7.00 10*3] 9.14 10*3 *HI* (10/25/15 3:25 AM) Lymph Absolute [0.80-3.30 10*3] 1.26 10*3 (10/25/15 3:25 AM) Scott Absolute [0.30-1.00 10*3] 0.11 10*3 *LOW* (10/25/15 3:25 AM) Eos Absolute [0.00-0.50 10*3] 0.00 10*3 (10/25/15 3:25 AM) Baso Absolute [0.00-0.20 10*3] 0.00 10*3 (10/25/15 3:25 AM) Toxic Gran Occasional *ABN* (10/25/15 3:25 AM) Dohle Bodies Occasional *ABN* (10/22/15 4:58 AM) Giant Platelets Occasional *ABN* (10/22/15 4:58 AM) Polychrom Occasional *ABN* (10/25/15 3:25 AM) Macrocyte Present *ABN* (10/24/15 4:21 AM) Stippled RBC Occasional *ABN* (10/25/15 3:25 AM) Nucleated RBC Automated [0 /100 WBC] 0.0 /100 WBC (10/25/15 3:25 AM) Differential Manual *ABN* (10/25/15 3:25 AM) Chemistry Most recent to oldest [Reference Range]: 1 Sodium Lvl [136-144 mEq/L] 140 mEq/L (10/28/15 5:29 AM) Potassium Lvl [3.6-5.1 mEq/L] 4.0 mEq/L (10/28/15 5:29 AM) Chloride [99-109 mEq/L] 100 mEq/L (10/28/15 5:29 AM) CO2 [22-32 mEq/L] 32 mEq/L (10/28/15 5:29 AM) AGAP [3-20] 8 (10/28/15 5:29 AM) BUN [4-20 mg/dL] 17 mg/dL (10/28/15 5:29 AM) Glucose Lvl [70-100 mg/dL] 172 mg/dL *HI* (10/28/15 5:29 AM) Creatinine Lvl [0.64-1.27 mg/dL] 0.82 mg/dL (10/28/15 5:29 AM) eGFR [>60] >60 1 (10/28/15 5:29 AM) Calcium Lvl [8.6-10.0 mg/dL] 8.1 mg/dL *LOW* (10/28/15 5:29 AM) Albumin Lvl [3.5-4.8 gm/dL] 2.8 gm/dL *LOW* (10/28/15 5:29 AM) Total Protein [6.1-7.9 gm/dL] 7.1 gm/dL (10/20/15 4:22 PM) Globulin [1.9-4.3 gm/dL] 4.0 gm/dL (10/20/15 4:22 PM) ALT [17-63 U/L] 45 U/L (10/20/15 4:22 PM) AST [15-41 U/L] 40 U/L (10/20/15 4:22 PM) Alk Phos [26-104 U/L] 116 U/L *HI* (10/20/15 4:22 PM) Bili Total [0.2-1.2 mg/dL] 0.5 mg/dL 2 (10/20/15 4:22 PM) Magnesium Lvl [1.8-2.5 mg/dL] 2.2 mg/dL (10/23/15 4:25 AM) Phosphorus [2.4-4.7 mg/dL] 4.3 mg/dL 3 (10/28/15 5:29 AM) BNP [0-99 pg/mL] 1408 pg/mL *HI* (10/22/15 4:58 AM) Lactic Acid Lvl [0.5-2.2 mEq/L] 0.9 mEq/L (10/20/15 4:27 PM) Blood Glucose, Capillary [70-100 mg/dL] 172 mg/dL *HI* (10/28/15 10:08 AM) Blood Glucose, Capillary Out of Range High (10/21/15 8:00 PM) 1Result Comment: Multiply eGFR results by 1.21 for race.2Result Comment: Naproxen, specifically the metabolite O-desmethylnaproxen, may cause spurious elevation in Total Bilirubin levels.3Result Comment: High dosages of liposomal Amphotericin B (AmBisome) therapy or other drug preparations that use a liposomal envelope to facilitate drug delivery may cause falsely elevated results for phosphorus.Therapeutic Drug Monitoring Most recent to [Reference Range]: 1 Vancomycin Tr [10.0-20.0 ug/mL] 29.5 ug/mL 1 *HI* (10/25/15 8:22 AM) 1Result Comment: Trough vancomycin concentrations of 15-20 mcg/mL are recommended for complicated infections such as bacteremia, osteomyelitis, endocarditis, meningitis, and hospital acquired pneumonia.Urinalysis Most recent to [Reference Range]: 1 UA Color Colorless (10/20/15 4:22 PM) UA Appear Clear (10/20/15 4:22 PM) UA pH [5.0-8.0] 7.0 (10/20/15 4:22 PM) UA Leuk Est [Negative] Negative (10/20/15 4:22 PM) UA Nitrite [Negative] Negative (10/20/15 4:22 PM) UA Protein [Negative] Negative (10/20/15 4:22 PM) UA Glucose [Negative] Negative (10/20/15 4:22 PM) UA Ketones [Negative] Negative (10/20/15 4:22 PM) UA Urobilinogen [<1.0] Negative (10/20/15 4:22 PM) UA Bili [Negative] Negative (10/20/15 4:22 PM) UA Blood [Negative] Negative (10/20/15 4:22 PM) UA Spec Grav [1.003-1.030] 1.005 (10/20/15 4:22 PM) Type Not Specified (10/20/15 4:22 PM) Microbiology Reports TEST:Wound Culture and Smear STATUS:Auth (Verified) BODY SITE:Leg, Left SOURCE:Wound COLLECTED DATE/TIME:10/21/15 2:30 AMWound CultureNo pathogens isolated Normal skin calos presentTEST:Anaerobic Culture STATUS:Auth (Verified) BODY SITE:Leg, Left SOURCE:Wound COLLECTED DATE/TIME:10/21/15 2:30 AMAnaerobic CultureNo anaerobes isolatedTEST:Blood Culture STATUS:Auth (Verified) BODY SITE: SOURCE:Blood COLLECTED DATE/TIME:10/20/15 5:34 PMBlood CultureNo growth after 5 days of incubation.TEST:Blood Culture1 STATUS:Auth (Verified) BODY SITE: SOURCE:Blood COLLECTED DATE/TIME:10/20/15 4:41 PMBlood CulturePCR negative for Staph aureus. - Differential time to positive: 52.1 hours - A blood culture drawn through a catheter with a differential time to positivity at least 2 hours sooner than one drawn from a peripheral vein at the same time suggests a catheter-related bloodstream infection. - Staphylococcus, coagulase negative probable contaminant; no further work-up will be performed. ORGANISM:Staphylococcus coagulase negativeINTERPRETIVE DATA1Critical value called to and read back by Julia Garduno RN 00:52 10/23/2015 Immunizations No data available for this section Procedures Procedure Date Related Diagnosis Body Site Arterial puncture, withdrawal of blood for 10/24/15 diagnosis Arterial puncture, withdrawal of blood for 10/20/15 diagnosis Bypass Graft Coronary Artery1 10/04/15 [place] [facility] Endoscopic (Left)2 10/04/15 Carotid endarterectomy3 Colonoscopy 1auto-populated from documented surgical [id number] from documented surgical [id number] Social History Social History Type Response Smoking Status Current every day smoker; Type: Cigarettes; Tobacco use per day : Less than Pack; Number of years: 46 Assessment and Plan No data available for this section
--- OUTSIDE RECORDS SUMMARY | 2017-04-17 17:20 | External Medical Summary | Referral Summary ---
:1955 Author Organization [facility] Address [address] [place] [address] Care Team Providers Name Role Phone Magdalena Plascencia Primary Care Physician Encounter VC [facility] [id number] Date(s): 10/04/15 - 10/13/15 [facility] [address] [place] [address] Discharge Disposition: 01-Home or Self Care Attending Physician: Alexsander Leonardo MD Admitting Physician: Alexsander Leonardo MD Vital Signs Most recent to oldest [Reference Range]: 1 Temperature Temporal Artery [36.3-37.8 degC] 36.6 degC (10/13/15 4:00 PM) Apical Heart Rate [60-100 bpm] 127 bpm *HI* (10/09/15 12:25 PM) Peripheral Pulse Rate [60-100 bpm] 87 bpm (10/13/15 8:30 AM) Peripheral Pulse Rate with Activity 79 bpm (10/12/15 1:59 PM) Heart Rate Monitored [60-100 bpm] 82 bpm (10/13/15 4:12 PM) Respiratory Rate [14-20 br/min] 18 br/min (10/13/15 4:06 PM) Blood Pressure [90-140/60-90 mmHg] 106/61 mmHg (10/13/15 4:00 PM) Systolic Blood Pressure with Activity 97 mmHg (10/12/15 1:59 PM) Diastolic Blood Pressure with Activity 68 mmHg (10/12/15 1:59 PM) Mean Arterial Pressure, Cuff 79 mmHg (10/13/15 4:00 PM) Blood Pressure Invasive [90-140/60-90 mmHg] 134/61 mmHg (10/05/15 4:00 PM) Mean Arterial Pressure, Invasive 87 mmHg (10/05/15 4:00 PM) Systolic Blood Pressure Invasive 2 [90-140 mmHg] 131 mmHg 1 (10/04/15 5:29 AM) Diastolic Blood Pressure Invasive 2 [60-90 mmHg] 77 mmHg 2 (10/04/15 5:29 AM) Pulse Rate [60-100 bpm] 97 bpm (10/07/15 4:09 PM) SpO2 94 % (10/13/15 4:00 PM) Remote Telemetry Ongoing (10/08/15 8:00 PM) 1Result Comment: [id number] Comment: left Problem List Condition Effective Dates Status Health Status Informant Acute pain(Confirmed) Active ETOH abuse(Confirmed) Active patient At risk for falls(Confirmed)1 Active At risk for injury(Confirmed)2 Active At risk of pressure sore(Confirmed) Active Atrial fibrillation(Confirmed) Active patient CVA (cerebral vascular Active patient accident)(Confirmed) COPD (chronic obstructive pulmonary Active patient disease)(Confirmed) CHF (congestive heart Active patient failure)(Confirmed) Coronary artery disease(Confirmed) Active patient Depression(Confirmed) Active patient Diabetes(Confirmed) Active patient Dyspnea(Confirmed) Active patient Hyperlipidemia(Confirmed) Active patient HTN (hypertension)(Confirmed) Active patient Impaired gas exchange(Confirmed)3 Active Diabetic acidosis, type II(Confirmed) Active patient Knowledge deficit(Confirmed)4 Active Methicillin resistant Staphylococcus Active aureus(Confirmed)5 Obesity(Confirmed) Active patient Schizophrenia(Confirmed) Active patient Substance abuse(Confirmed) Active patient Tobacco user(Confirmed) Active patient 1This problem was added by Discern Expert.2Problem added automatically by system based on initiation of Risk for Injury Plan of [id number] added automatically by system based on initiation of Impaired Gas Exchange Plan of [id number] added automatically by system based on initiation of Knowledge Deficit Plan of [id number] from NOT FOUND collected 10/04/15 5:23:00 CDT Allergies, Adverse Reactions, Alerts No Known Allergies Medications Advair HFA 115 mcg-21 mcg/inh inhalation aerosol 2 puffs, Inhalation, BID, 0 Refill(s) Start Date: 10/13/15 Status: OrderedAdvair HFA 230 mcg-21 mcg/inh inhalation aerosol 2 puffs, Inhalation, BID, 0 Refill(s) Start Date: 11/05/14 Status: Orderedaspirin 81 mg oral delayed release tablet 81 mg 1 tabs, Oral, Daily, 0 Refill(s) Start Date: 10/13/15 Status: OrderedBumex 1 mg 1 tabs, Oral, BID, 0 Refill(s) Start Date: 10/13/15 Status: OrderedCeftin 500 mg oral tablet 500 mg 1 tabs, Oral, BID, X 5 days, # 10 tabs, 0 Refill(s), other reason (Rx) Start Date: 10/12/15 Stop Date: 10/17/15 Status: OrderedCoreg 3.125 mg, Oral, BID, 0 Refill(s) Start Date: 10/03/15 Status: OrderedDuoNeb 0.5 mg-2.5 mg/3 mL inhalation solution See Instructions, USE ONE vial THREE TIMES DAILY DIRECTED, # 180 mL, eRx: Pharm[facility] - [place], USE ONE vial THREE TIMES DAILY DIRECTED Start Date: 04/08/15 Status: Orderedferrous sulfate 325 mg (65 mg elemental iron) oral delayed release tablet 650 mg 2 tabs, Oral, Daily, 0 Refill(s) Start Date: 10/13/15 Status: Orderedfolic acid 1 mg oral tablet 1 mg 1 tabs, Oral, Daily, # 30 tabs, 0 Refill(s) Start Date: 11/05/14 Status: OrderedguaiFENesin 600 mg, Oral, q12hr, 0 Refill(s) Start Date: 11/05/14 Status: OrderedInvega 6 mg, Oral, Bedtime (once a day), 0 Refill(s) Start Date: 10/03/15 Status: OrderedLevemir 100 units/mL subcutaneous solution 25 units, SubCutaneous, Bedtime (once a day), 0 Refill(s) Start Date: 10/13/15 Status: Orderedminocycline 100 mg oral tablet 100 mg 1 tabs, Oral, q12hr, X 5 days, # 10 tabs, 0 Refill(s), other reason (Rx) Start Date: 10/12/15 Stop Date: 10/17/15 Status: OrderedMiraLax g, Oral, Daily, 0 Refill(s) Start Date: 11/05/14 Status: OrderedMiraLax 17 g 1 packets, Oral, Daily, 0 Refill(s) Start Date: 10/13/15 Status: Orderedmultivitamin Daily, 0 Refill(s) Start Date: 11/05/14 Status: OrderedNovoLOG 100 units/mL subcutaneous solution 14 units, SubCutaneous, TIDWM, 0 Refill(s) Start Date: 10/13/15 Status: Orderednystatin 100,000 units/g topical powder 1 hui, Topical, TID, 0 Refill(s) Start Date: 11/26/14 Status: OrderedPradaxa 150 mg oral capsule 150 mg 1 caps, Oral, BID, 0 Refill(s) Start Date: 10/13/15 Status: OrderedSpiriva 18 mcg inhalation capsule 18 mcg 1 Each, Inhalation, Daily, use two inhalations of one capsule for each dose, # 30 Each, 0 Refill(s) Start Date: 11/05/14 Status: OrderedSynthroid 50 mcg, Oral, Daily, 0 Refill(s) Start Date: 10/03/15 Status: OrderedVentolin HFA 90 mcg/inh inhalation aerosol [...] to oldest [Reference Range]: 1 pH [7.35-7.45] 7.40 (10/11/15 9:11 PM) PCO2 Arterial POC [35-45 mmHg] 52 mmHg *HI* (10/04/15 11:24 AM) pCO2 Art [35-45 mmHg] 62 mmHg *HHI* (10/11/15 9:11 PM) CO2 Totl Art [23-27 mEq/L] 25 mEq/L (10/04/15 11:24 AM) Bicarbonate [22-26 mEq/L] 38 mEq/L *HI* (10/11/15 9:11 PM) Bicarbonate Arterial POC [22-26 mEq/L] 24 mEq/L (10/04/15 11:24 AM) Base Excess Arterial POC [0-2] -3 *LOW* (10/04/15 11:24 AM) Base Excess Art [0-2] 11 *HI* (10/11/15 9:11 PM) O2 Sat Art [90.0-97.0 %] 96.1 % (10/11/15 9:11 PM) pO2 Art [80-100 mmHg] 80 mmHg (10/11/15 9:11 PM) O2 Saturation Arterial POC [90.0-97.0 %] 94.0 % (10/04/15 11:24 AM) pH Arterial POC [7.35-7.45] 7.27 *LOW* (10/04/15 11:24 AM) PO2 Arterial POC [80-100 mmHg] 83 mmHg (10/04/15 11:24 AM) LPM Art 5.0 L/min [...] (10/11/15 9:11 PM) Hematology Most recent to oldest [Reference Range]: 1 WBC [4.8-10.8 10*3/uL] 11.5 10*3/uL *HI* (10/13/15 7:26 AM) RBC [4.60-6.20] 2.53 *LOW* (10/13/15 7:26 AM) Hgb [14.0-18.0 gm/dL] 7.8 gm/dL *LOW* (10/13/15 7:26 AM) Hct [42.0-52.0 %] 24.7 % *LOW* (10/13/15 7:26 AM) MCV [82.0-99.0 fL] 97.6 fL (10/13/15 7:26 AM) MCH [27.0-32.0 pg] 30.8 pg (10/13/15 7:26 AM) MCHC [32.0-36.0 gm/dL] 31.6 gm/dL *LOW* (10/13/15 7:26 AM) RDW [11.5-14.5 %] 20.3 % *HI* (10/13/15 7:26 AM) Platelet [150-400 10*3/uL] 231 10*3/uL (10/13/15 7:26 AM) MPV [9.4-12.3 fL] 9.8 fL (10/13/15 7:26 AM) Neutrophils [51-75 %] 74 % (10/06/15 4:04 AM) Band Man [0-8 %] 13 % *HI* (10/06/15 4:04 AM) Myelo Man 2 % (10/04/15 5:46 AM) Lymphocytes [20-46 %] 7 % *LOW* (10/06/15 4:04 AM) Monocytes [4-11 %] 6 % (10/06/15 4:04 AM) Eosinophils [0-4 %] 0 % (10/06/15 4:04 AM) Basophils [0-2 %] 0 % (10/06/15 4:04 AM) Neutro Absolute [1.90-7.00 10*3] 13.92 10*3 *HI* (10/06/15 4:04 AM) Lymph Absolute [0.80-3.30 10*3] 1.12 10*3 (10/06/15 4:04 AM) [place] Absolute [0.30-1.00 10*3] 0.96 10*3 (10/06/15 4:04 AM) Eos Absolute [0.00-0.50 10*3] 0.02 10*3 (10/06/15 4:04 AM) Baso Absolute [0.00-0.20 10*3] 0.02 10*3 (10/06/15 4:04 AM) Toxic Gran Occasional *ABN* (10/05/15 4:10 AM) Dohle Bodies Occasional *ABN* (10/05/15 4:10 AM) Polychrom Occasional *ABN* (10/05/15 4:10 AM) Nucleated RBC Automated [0 /100 WBC] 0.3 /100 WBC (10/06/15 4:04 AM) Differential Reviewed (10/06/15 4:04 AM) Coagulation Most recent to oldest [Reference Range]: 1 INR [0.9-1.2] 1.1 (10/09/15 2:28 PM) PTT [25.0-35.0 seconds] 53.0 seconds *HI* (10/10/15 5:23 AM) Fibrinogen Lvl [187-520 mg/dL] 178 mg/dL *LOW* (10/04/15 10:50 AM) Chemistry Most recent to oldest [Reference Range]: 1 Sodium Lvl [136-144 mEq/L] 132 mEq/L *LOW* (10/13/15 7:26 AM) Potassium Lvl [3.6-5.1 mEq/L] 3.5 mEq/L *LOW* (10/13/15 7:26 AM) Chloride [99-109 mEq/L] 92 mEq/L *LOW* (10/13/15 7:26 AM) CO2 [22-32 mEq/L] 33 mEq/L *HI* (10/13/15 7:26 AM) AGAP [3-20] 7 (10/13/15 7:26 AM) BUN [4-20 mg/dL] 13 mg/dL (10/13/15 7:26 AM) Glucose Lvl [70-100 mg/dL] 128 mg/dL *HI* (10/13/15 7:26 AM) Creatinine Lvl [0.64-1.27 mg/dL] 0.75 mg/dL (10/13/15 7:26 AM) eGFR [>60] >60 1 (10/13/15 7:26 AM) Calcium Lvl [8.6-10.0 mg/dL] 8.2 mg/dL *LOW* (10/13/15 7:26 AM) Albumin Lvl [3.5-4.8 gm/dL] 2.6 gm/dL *LOW* (10/08/15 2:41 PM) Magnesium Lvl [1.8-2.5 mg/dL] 1.9 mg/dL (10/13/15 7:26 AM) Phosphorus [2.4-4.7 mg/dL] 3.1 mg/dL 2 (10/08/15 2:41 PM) Calcium Ionized [1.19-1.41 mmol/L] 1.12 mmol/L *LOW* (10/09/15 4:29 AM) Prealbumin [18-38 mg/dL] 26 mg/dL (10/04/15 5:46 AM) Sodium Arterial NPT [136-144 mEq/L] 141 mEq/L (10/04/15 11:24 AM) Potassium Arterial NPT [3.6-5.1 mEq/L] 3.4 mEq/L 3 *LOW* (10/04/15 11:24 AM) Calcium Ionized Arterial NPT [1.19-1.41 mmol/L] 1.17 mmol/L *LOW* (10/04/15 11:24 AM) HCT Arterial NPT 26.0 % (10/04/15 11:24 AM) HGB Arterial NPT 8.8 gm/dL (10/04/15 11:24 AM) Arterial Glucose NPT [70-100 mg/dL] 170 mg/dL *HI* (10/04/15 11:24 AM) Activated Clotting Time NPT [100-146 seconds] 116 seconds (10/04/15 10:39 AM) Blood Glucose, Capillary [70-100 mg/dL] 121 mg/dL *HI* (10/13/15 4:12 PM) Hgb A1c [4.1-5.6 %] 8.2 % *HI* (10/04/15 5:45 AM) eAvg Glucose 188.6 mg/dL (10/04/15 5:23 AM) 1Result Comment: Multiply eGFR results by 1.21 for race.2Result Comment: High dosages of liposomal Amphotericin B (AmBisome) therapy or other drug preparations that use a liposomal envelope to facilitate drug delivery may cause falsely elevated results for phosphorus.3Result Comment: This test was performed on a whole blood specimen. The presence or absence of hemolysis cannot be assessed. Hemolysis can falsely elevate potassium levels. Normals are for venous specimens only.Therapeutic Drug Monitoring Most recent to oldest [Reference Range]: 1 Vancomycin Tr [10.0-20.0 ug/mL] 15.3 ug/mL 1 (10/12/15 8:04 AM) 1Result Comment: Trough vancomycin concentrations of 15-20 mcg/mL are recommended for complicated infections such as bacteremia, osteomyelitis, endocarditis, meningitis, and hospital acquired pneumonia.Urinalysis Most recent to oldest [Reference Range]: 1 UA Color Yellow (10/04/15 5:20 AM) UA Appear Sl Cloudy (10/04/15 5:20 AM) UA pH [5.0-8.0] 6.0 (10/04/15 5:20 AM) UA Leuk Est [Negative] Negative (10/04/15 5:20 AM) UA Nitrite [Negative] Negative (10/04/15 5:20 AM) UA Protein [Negative] Negative (10/04/15 5:20 AM) UA Glucose [Negative] Negative (10/04/15 5:20 AM) UA Ketones [Negative] Negative (10/04/15 5:20 AM) UA Urobilinogen [<1.0 mg/dL] 2.0 mg/dL *ABN* (10/04/15 5:20 AM) UA Bili [Negative] Negative (10/04/15 5:20 AM) UA Blood [Negative] Negative (10/04/15 5:20 AM) UA Spec Grav [1.003-1.030] 1.020 (10/04/15 5:20 AM) Type Clean Catch (10/04/15 5:20 AM) Blood Bank Results Most recent to oldest [Reference Range]: 1 ABO/Rh A POS (10/13/15 8:38 AM) Antibody Screen Tube NEG (10/13/15 8:38 AM) Microbiology Reports TEST:Sputum Culture and Smear STATUS:Auth (Verified) BODY SITE: SOURCE:Sputum COLLECTED DATE/TIME:10/08/15 8:22 PMSputum Culture and SmearHaemophilus influenzae predominant amount Beta-lactamase licensed sales producer: Consider extended spectrum aminopenicillin, second or third generation cephalosporin for treatment. ORGANISM:Haemophilus influenzaeTEST:MRSA Screen Culture1 STATUS:Auth (Verified) BODY SITE: SOURCE:[place] COLLECTED DATE/TIME:10/04/15 5:20 AMMRSA Screen CultureStaphylococcus aureus Screening test indicates resistance to methicillin moderate amount ORGANISM:Staphylococcus aureusINTERPRETIVE DATA1Result called to Mely Palmer RN 10/05/2015 09:19 Immunizations No data available for this section Procedures Procedure Date Related Diagnosis Body Site Replacement, complete, of a peripherally inserted 10/13/15 central venous catheter (PICC), without subcutaneous port or pump, through same venous access Insertion of peripherally inserted central venous 10/12/15 catheter (PICC), without subcutaneous port or pump; age 5 years or older.. Arterial puncture, withdrawal of blood for 10/11/15 diagnosis Arterial puncture, withdrawal of blood for 10/08/15 diagnosis Bypass Graft Coronary Artery1 10/04/15 [place] Vein Endoscopic (Left)2 10/04/15 Carotid endarterectomy3 Colonoscopy 1auto-populated from documented surgical [id number] from documented surgical [id number] Social History Social History Type Response Smoking Status Current every day smoker; Type: Cigarettes; Tobacco use per day : Less than Pack; Number of years: 46 Assessment and Plan No data available for this section
--- OUTSIDE RECORDS SUMMARY | 2017-04-17 17:20 | External Medical Summary | Referral Summary ---
:1955 Author [facility] Address [address] [place] [address] [place] [address] Care Team Providers Name Role Phone Magdalena Plascencia Primary Care Physician Encounter VC Date(s): 11/16/14 - 11/16/14 [facility] [place] [address] [place] Discharge Disposition: 01-Home or Self Care Attending [...] tabs, 5 Refill(s) Start Date: 12/06/14 Status: Orderedbisacodyl 10 mg rectal suppository 10 [...] # 180 mL, eRx: [facility] [place], [place], USE ONE vial THREE TIMES DAILY [...] tabs, 0 Refill(s) Start Date: 05/10/15 Status: Orderednystatin 100,000 units/g topical powder 1 [...]
--- OUTSIDE RECORDS SUMMARY | 2017-04-17 17:20 | External Medical Summary | Referral Summary ---
:1955 Author Organization [facility] Address [address] [place] [address] [place] [address] Care Team Providers Name Role Phone Magdalena Plascencia Primary Care Physician Encounter VC Date(s): 02/15/15 - 02/15/15 [facility] [place] [address] [place] Discharge Disposition: [...] Oral, Bedtime (once a day), [facility] [phone], # 60 tabs, 0 Refill(s) Start Date: [...] # 180 mL, eRx: [facility] - [place], [place], USE ONE vial THREE TIMES DAILY [...]
--- OUTSIDE RECORDS SUMMARY | 2017-04-17 17:23 | External Medical Summary | Referral Summary ---
:1955 Author [facility] Address [address] [place] [address] [place] [address] Care Team Providers Name Role Phone Magdalena Plascencia Primary Care Physician Encounter VC Date(s): 02/08/15 - 02/08/15 [facility] [place] [address] [place] Discharge Disposition: [...] Oral, Bedtime (once a day), [facility] [phone], # 60 tabs, 0 Refill(s) Start Date: [...] # 180 mL, eRx: [facility] [place], [place], USE ONE vial THREE TIMES DAILY [...]
--- OUTSIDE RECORDS SUMMARY | 2017-04-17 17:23 | External Medical Summary | CCD ---
:1955 Author Name SUZY MALLORY Address [address], [place] [id number] Care Team Providers Name Role Phone ADILENE PEREZ Attending Physician Unavailable Vital Signs Unknown or Not Available. Allergies Unknown or Not Available. Procedures Unknown or Not Available. History of Immunizations Immunization Code Date pneumococcal polysaccharide PPV23 33 09/25/2011 pneumococcal polysaccharide PPV23 33 04/28/2012 Influenza, seasonal, injectable 141 05/07/2012 Influenza, seasonal, injectable 141 05/27/2013 Problems Unknown or Not Available. Results OCCULT [...] Date End Date Unknown if ever smoked [id number] Patient Decision Aids Unknown or Not Available. Discharge Instructions You were admitted to [facility] on 11/16/2015 11:42 You had the following tests done: OCCULT BLOOD STOOL IMMUNOASSAY You were discharged from [facility] on 11/16/2015 11:42 Should you have any [...]
--- OUTSIDE RECORDS SUMMARY | 2017-04-17 17:23 | External Medical Summary | Referral Summary ---
:1955 Author [facility] Address [address] [place] [address] [place] [address] Care Team Providers Name Role Phone Magdalena Plascencia Primary Care Physician Encounter VC Date(s): 03/15/15 - 03/15/15 [facility] [place] [address] [place] Discharge Disposition: [...] Oral, Bedtime (once a day), [facility] [phone], # 60 tabs, 0 Refill(s) Start Date: [...] # 180 mL, eRx: [facility] [place] [place], USE ONE vial THREE TIMES DAILY [...]
--- OUTSIDE RECORDS SUMMARY | 2017-04-17 17:24 | External Medical Summary | Referral Summary ---
:1955 Author [facility] Address [address] [place] [address] [place] [address] Care Team Providers Name Role Phone Magdalena Plascencia Primary Care Physician Encounter VC Date(s): 11/09/14 - 11/09/14 [facility] [place] [address] [place] Discharge Disposition: [...] # 180 mL, eRx: [facility] [place], USE ONE vial THREE TIMES DAILY [...]
--- OUTSIDE RECORDS SUMMARY | 2017-04-17 17:24 | External Medical Summary | CCD ---
:1955 Author Name SUZY MALLORY Address [address] [place] [phone] Care Team Providers Name Role Phone ADILENE [...] BUN 15 mg/dL L=7 H=18 CREATININE 1.10 mg/dL L=0.60 H=1.30 AGE 60 YEARS GFR 72.6 SODIUM 133 mmol/L L=136 H=145 POTASSIUM 4.4 mmol/L L=3.5 H=5.1 CHLORIDE 94 mmol/L L=98 H=107 CO2 28 mmol/L L=21 H=32 CALCIUM 9.4 mg/dL L=8.5 H=10.1 HEPATIC FUNCTION - Collect Date/Time: 08/10/2015 09:45 Test Name Code Test Result Test Units Test Ref Range AST 18 U/L L=15 H=37 ALT 42 U/L L=12 H=78 ALKALINE PHOS 74 U/L L=46 H=116 TOTAL PROTEIN 7.4 g/dL L=6.4 H=8.2 ALBUMIN 3.5 g/dL L=3.4 H=5.0 TOTAL BILI 0.40 mg/dL L=0.00 H=1.00 DIRECT BILI 0.10 mg/dL L=0.00 H=0.30 HGB A1C - Collect Date/Time: 08/10/2015 09:45 Test Name Code Test Result Test Units Test Ref Range HGB A1C 7.9 % L=4.5 H=6.2 eAG 180 mg/dL LIPID PANEL - Collect Date/Time: 08/10/2015 09:45 Test Name Code Test Result Test Units Test Ref Range CHOLESTEROL 200 mg/dL L=0 H=200 TRIGLYCERIDES 132 mg/dL L=30 H=150 HDL 58 mg/dL L=40 H=60 [...] RBC 3.86 x10^6 L=4.70 H=6.10 HEMOGLOBIN 12.5 g/dL L=14.0 H=18.0 HEMATOCRIT 37.7 % L=42.0 H=52.0 [...] % L=0.0 H=2.0 REFLEX MAN DIFF NO N/A Active Medications Unknown or Not Available. Medications Administered During Visit Unknown or Not Available. Encounters Encounter Diagnosis Diagnosis Code Start Date Essential (primary) hypertension I10 08/10/2015 Social History Smoking Status Code Start Date End Date Unknown if ever smoked [id number] Patient Decision Aids Unknown or Not Available. Discharge Instructions You were admitted to [facility] on 08/10/2015 13:47 with a principal diagnosis of Essential (primary) hypertension You had the following tests done: BASIC METABOLIC CBC W/ DIFF HEPATIC FUNCTION HGB A1C LIPID PANEL THYROXINE (T4) FREE TSH You were discharged from [facility] on 08/10/2015 13:47 Should you have any [...]
--- OUTSIDE RECORDS SUMMARY | 2017-04-17 17:24 | External Medical Summary | Referral Summary ---
:1955 Author Organization [facility] Address [address] [place] [address] [place] [address] Care Team Providers Name Role Phone Magdalena Plascencia Primary Care Physician Encounter VC Date(s): 03/08/15 - 03/08/15 [facility] [place] [address] [place] Discharge Disposition: [...] Oral, Bedtime (once a day), [facility] [phone], # 60 tabs, 0 Refill(s) Start Date: [...] # 180 mL, eRx: [facility] [place], [place], USE ONE vial THREE TIMES DAILY [...]
--- OUTSIDE RECORDS SUMMARY | 2017-04-17 17:26 | External Medical Summary | CCD ---
:1955 Author Name ALIYA BALES Address [address] [place] [phone] Care Team Providers Name Role Phone ADILENE PEREZ Attending Physician Unavailable Vital Signs Unknown or Not Available. Allergies Unknown or Not Available. Procedures Unknown or Not Available. History of Immunizations Immunization Code Date pneumococcal polysaccharide PPV23 33 09/25/2011 pneumococcal polysaccharide PPV23 33 04/28/2012 Influenza, seasonal, injectable 141 05/07/2012 Influenza, seasonal, injectable 141 05/27/2013 Problems Unknown or Not Available. Results HEPATIC FUNCTION - Collect Date/Time: 03/22/2015 09:30 Test Name Code Test Result Test Units Test Ref Range AST 19 U/L L=15 H=37 ALT 39 U/L L=12 H=78 ALKALINE PHOS 92 U/L L=46 H=116 TOTAL PROTEIN 7.4 g/dL L=6.4 H=8.2 ALBUMIN 3.4 g/dL L=3.4 H=5.0 TOTAL BILI 0.40 mg/dL L=0.00 H=1.00 DIRECT BILI 0.10 mg/dL L=0.00 H=0.30 THYROXINE (T4) FREE - Collect [...] Code Start Date Unspecified atrial flutter [id number] 03/22/2015 Social History Smoking Status Code Start Date End Date Unknown if ever smoked [id number] Patient Decision Aids Unknown or Not Available. Discharge Instructions You were admitted to [facility] on 11/2014 with a principal diagnosis of Unspecified atrial flutter. You were discharged from [facility] on 03/22/2015. Should you have any questions [...]
--- OUTSIDE RECORDS SUMMARY | 2017-04-17 17:26 | External Medical Summary | Referral Summary ---
:1955 Author [facility] Address [address] [place] [address] [place] [address] Care Team Providers Name Role Phone Magdalena Plascencia Primary Care Physician Encounter Date(s): 01/11/15 - 01/11/15 [facility] [address] [place] [address] [place] Discharge [...] Oral, Bedtime (once a day), [facility] [phone], # 60 tabs, 0 Refill(s) Start Date: [...] # 180 mL, eRx: [facility] - [place], [place], USE ONE vial THREE TIMES DAILY [...]
--- OUTSIDE RECORDS SUMMARY | 2017-04-17 17:28 | External Medical Summary | Referral Summary ---
:1955 Author [facility] Address [address] [place] [address] [place] [address] Care Team Providers Name Role Phone Magdalena Plascencia Primary Care Physician Encounter VC Date(s): 02/24/15 - 02/24/15 [facility] [place] [address] [place] Discharge Disposition: [...] Oral, Bedtime (once a day), [facility] [phone], # 60 tabs, 0 Refill(s) Start Date: [...] # 180 mL, eRx: [facility] [place], USE ONE vial THREE TIMES DAILY [...]
--- OUTSIDE RECORDS SUMMARY | 2017-04-17 17:28 | External Medical Summary | Referral Summary ---
:1955 Author [facility] Address [address] [place] [address] [place] [address] Care Team Providers Name Role Phone Magdalena Plascencia Primary Care Physician Encounter VC Date(s): 12/06/14 - 12/06/14 [facility] [place] [address] [place] Discharge Disposition: [...] Oral, Bedtime (once a day), [facility] [phone], # 60 tabs, 0 Refill(s) Start Date: [...] # 180 mL, eRx: [facility] [place], [place], USE ONE vial THREE TIMES DAILY [...]
--- OUTSIDE RECORDS SUMMARY | 2017-04-17 17:28 | External Medical Summary | Referral Summary ---
:1955 Author [facility] Address [address] [place] [address] [place] [phone] Care Team Providers Name Role Phone Magdalena Plascencia Primary Care Physician Encounter VC Date(s): 12/06/14 - 12/06/14 [facility] [place] [address] [place] Discharge Disposition: [...] Oral, Bedtime (once a day), [facility] [phone], # 60 tabs, 0 Refill(s) Start Date: [...] # 180 mL, eRx: [facility] [place], [place], USE ONE vial THREE TIMES DAILY [...]
--- OUTSIDE RECORDS SUMMARY | 2017-04-17 17:28 | External Medical Summary | CCD ---
:1955 Author Name SUZY MALLORY Address [address] [place] [phone] Care Team Providers Name Role Phone ADILENE [...] BUN 21 mg/dL L=7 H=18 CREATININE 0.99 mg/dL L=0.60 H=1.30 AGE 60 YEARS GFR 77.1 SODIUM 137 mmol/L L=136 H=145 POTASSIUM 4.2 mmol/L L=3.5 H=5.1 CHLORIDE 101 mmol/L L=98 H=107 [...] RBC 3.46 x10^6 L=4.70 H=6.10 HEMOGLOBIN 10.9 g/dL L=14.0 H=18.0 HEMATOCRIT 33.6 % L=42.0 H=52.0 [...] Date End Date Unknown if ever smoked [id number] Patient Decision Aids Unknown or Not Available. Discharge Instructions You were admitted to [facility] on 11/02/2015 10:16 You had the following tests done: BASIC METABOLIC CBC W/ DIFF HGB A1C You were discharged from [facility] on 11/02/2015 10:16 Should you have any [...]
--- OUTSIDE RECORDS SUMMARY | 2017-04-17 17:28 | External Medical Summary | CCD ---
:1955 Author Name SUZY MALLORY Address [address] [place] [phone] Care Team Providers Name Role Phone ADILENE [...] BUN 13 mg/dL L=7 H=18 CREATININE 0.70 mg/dL L=0.60 H=1.30 AGE 61 YEARS GFR 114.6 SODIUM 135 mmol/L L=136 H=145 POTASSIUM 4.1 mmol/L L=3.5 H=5.1 CHLORIDE 97 mmol/L L=98 H=107 [...] RBC 3.90 x10^6 L=4.70 H=6.10 HEMOGLOBIN 12.7 g/dL L=14.0 H=18.0 HEMATOCRIT 38.5 % L=42.0 H=52.0 [...] Diagnosis Code Start Date Schizophrenia, unspecified F209 04/24/2016 Social History Smoking Status Code Start Date End Date Unknown if ever smoked [id number] Patient Decision Aids Unknown or Not Available. Discharge Instructions You were admitted to [facility] on 04/24/2016 10:27 with a principal diagnosis of Schizophrenia, unspecified You had the following tests done: BASIC METABOLIC CBC W/ DIFF PRO B-TYPE NATRIURETIC PEPTIDE TSH You were discharged from [facility] on 04/24/2016 10:27 Should you have any [...]
--- OUTSIDE RECORDS SUMMARY | 2017-04-17 17:28 | External Medical Summary | Referral Summary ---
:1955 Author Organization [facility] Address [address] [place] [address] [place] [address] Care Team Providers Name Role Phone Magdalena Plascecnia Primary Care Physician Encounter [facility] [id number] Date(s): 11/05/14 - 11/05/14 [facility] [place] [address] Discharge Diagnosis: CAD Discharge Diagnosis: Tachycardia Discharge Diagnosis: Hypoxia Discharge Diagnosis: Schizophrenia Discharge Diagnosis: Elevated d-dimer Discharge Diagnosis: Advanced COPD Discharge Diagnosis: Cardiomegaly Discharge Diagnosis: Atrial flutter Discharge Diagnosis: Tobacco user Discharge Diagnosis: SOB (shortness of breath) Discharge Disposition: 01-Home or Self Care Attending Physician: Magdalena Plascencia MD Admitting Physician: Magdalena Plascencia MD Vital Signs Most recent to oldest [Reference Range]: 1 Temperature Tympanic [36.6-38.1 degC] 36.8 degC (11/05/14 8:10 AM) Blood Pressure [90-140/60-90 mmHg] 116/62 mmHg (11/05/14 8:10 AM) SpO2 89 % (11/05/14 [...] 1 tabs, Oral, Bedtime (once a day), [facility], # 90 tabs, 5 Refill(s) Start [...] # 180 mL, eRx: [facility] - [place], [place], USE ONE vial THREE TIMES DAILY [...] Status: Ordered Results Hematology Most recent to oldest [Reference Range]: 1 WBC [5.0-10.0 10*3/uL] 7.6 10*3/uL (11/05/14 9:48 AM) RBC [3.70-5.20 10*6/uL] 3.99 10*6/uL (11/05/14 9:48 AM) Hgb [12.0-16.0 gm/dL] 13.1 gm/dL (11/05/14 9:48 AM) Hct [40.0-54.0 %] 40.1 % (11/05/14 9:48 AM) MCV [80.0-96.0 fL] 100.5 fL *HI* (11/05/14 9:48 AM) MCH [26.0-34.0 pg] 32.8 pg (11/05/14 9:48 AM) MCHC [32.0-36.0 gm/dL] 32.7 gm/dL (11/05/14 9:48 AM) RDW [0.0-14.5 %] 16.2 % *HI* (11/05/14 9:48 AM) Platelet [150-400 10*3/uL] 194 10*3/uL (11/05/14 9:48 AM) MPV [8.8-14.8 fL] 9.9 fL (11/05/14 9:48 AM) Neutrophils [50-70 %] 65 % (11/05/14 9:48 AM) [place] Man [0-1 %] 1 % (11/05/14 9:48 AM) Lymphocytes [20-40 %] 15 % *LOW* (11/05/14 9:48 AM) Monocytes [4-8 %] 18 % *HI* (11/05/14 9:48 AM) Eosinophils [0-6 %] 0 % (11/05/14 9:48 AM) Basophils [0-2 %] 1 % (11/05/14 9:48 AM) Neutro Absolute [2.50-7.00 10*3] 4.94 10*3 (11/05/14 9:48 AM) Lymph Absolute [1.00-4.00 10*3] 1.14 10*3 (11/05/14 9:48 AM) [place] Absolute [0.20-0.80 10*3] 1.37 10*3 *HI* (11/05/14 9:48 AM) Eos Absolute [0.00-0.60 10*3] 0.00 10*3 (11/05/14 9:48 AM) Baso Absolute [0.00-0.30 10*3] 0.08 10*3 (11/05/14 9:48 AM) Differential Manual *ABN* (11/05/14 [...] flutter Appt with cardilogist Cardiomegaly Appt with dyno technician Elevated d-dimer Ordered: CTA Chest Hypoxia chronic oxygen Schizophrenia SOB (shortness of breath) Ordered: Request for Cardiovascular Echo Tachycardia Ordered: Request for Cardiovascular Echo Tobacco user advised cessation; he's not interested in that.
--- OUTSIDE RECORDS SUMMARY | 2017-04-17 17:28 | External Medical Summary | CCD ---
:1955 Author Name SUZY MALLORY Address [address], [place] [address] Care Team Providers Name Role Phone ADILENE PEREZ Attending Physician Unavailable Vital Signs Unknown or Not Available. Allergies Unknown or Not Available. Procedures Unknown or Not Available. History of Immunizations Immunization Code Date pneumococcal polysaccharide PPV23 33 09/25/2011 pneumococcal polysaccharide PPV23 33 04/28/2012 Influenza, seasonal, injectable 141 05/07/2012 Influenza, seasonal, injectable 141 05/27/2013 Problems Unknown or Not Available. Results MICROALBUMIN/CREATININE RATIO - Collect Date/Time: 12/14/2015 10:10 Test Name Code Test Result Test Units Test Ref Range MICROALBUMIN 0.5 mg/dL L=0.1 H=2.0 CREAT, URINE <13.0 mg/dL Active Medications Unknown or Not Available. Medications Administered During Visit Unknown or Not Available. Encounters Encounter Diagnosis Diagnosis Code Start Date Type 2 diabetes mellitus without E119 12/14/2015 complications Social History Smoking Status Code Start Date End Date Unknown if ever smoked [id number] Patient Decision Aids Unknown or Not Available. Discharge Instructions You were admitted to [facility] on 12/14/2015 13:52 with a principal diagnosis of Type 2 diabetes mellitus without complications You had the following tests done: MICROALBUMIN/CREATININE RATIO You were discharged from [facility] on 12/14/2015 13:52 Should you have [...]
--- OUTSIDE RECORDS SUMMARY | 2017-04-17 17:30 | External Medical Summary | Continuity of Care Document ---
:1955 Author Organization [facility] Care Team Providers Name Role Phone DODIE PASTOR DO Unavailable Unavailable Insurance Providers Payer Name Policy Number Subscriber Name Relationship [facility] [id number] Samantha Trent 01 Self / Same As Patient Eren Advance Directives Directive Response Recorded Date/Time Patient Resuscitation Status Full Code 10/28/14 7:32pm Advance Directives Yes 10/28/14 7:32pm Living Will No 10/28/14 7:32pm Health Care Power of Roughing [employer] Operator Yes 10/28/14 7:32pm Chief Complaint and Reason [...] Medication Dose Route Sig Days/Qty Instructions Order Discontinued Status Date Date Paliperidone 05/24/ Active 10 Albuterol 1-2 INH Every 4 1 Qty 07/08/ /12/29 Discontinue Puffs hours as 14 d needed Fluticasone/S 1 Ea INH TWICE A 1 Qty 07/17/ / Discontinue almeterol DAY 14 d Metformin Hcl 500 Mg PO TWICE A 08/18/ Active DAY 14 Guaifenesin 600 Mg PO TWICE A 08/18/ Active DAY 14 Aspirin 08/18/ Active 14 Clopidogrel 75 Mg PO DAILY 08/18/ Active Bisulfate 14 Famotidine 20 Mg PO DAILY 08/18/ Active 14 Furosemide 20 Mg PO DAILY 08/18/ Active 14 Potassium 10 Meq PO DAILY 08/18/ / Discontinue Chloride 14 d Tiotropium 1 IN 08/18/ Active [place] 14 Monohydrate Folic Acid 1 Mg PO DAILY 08/18/ Active 14 Thiamine 08/18/ Active Mononitrate 14 Polyethylene 17 Gm PO 08/19/ Active Glycol 14 Multiple 1 X PO 08/19/ Active Vitamins W/ Minerals Lisinopril 5 Mg PO DAILY 03/30/ Active 14 Simvastatin 20 Mg PO DAILY 03/30/ Active 14 Trazodone HCl 100 06/29/ Active 15 Furosemide 40 Mg PO mon wed 06/29/ 11/02/14 Discontinue fri 15 d Venlafaxine 225 Mg PO DAILY 06/29/ Active Hcl For Not 15 specifie d Oseltamivir 75 Mg PO TWICE A 9 Qty 06/29/ Active Phosphate DAY For 15 INFLUENZ A Albuterol 1 Ea INH 25 Qty 06/29/ Active DIRECTED 15 For Wheezing Prednisone 20 Mg PO DAILY 7 Days 06/29/ / Discontinue For 15 d INFLAMMA TION Lorazepam 1.5 Mg PO BEDTIME 10/28/ Active For 15 Anxiety Cetirizine 10 Mg PO DAILY 10/28/ Active Hcl For Not 15 specifie d Fluticasone-S 2 INH TWICE A 10/28/ Active almeterol Puffs DAY For 15 COPD Furosemide 40 Mg PO TWICE A 30 Qty 11/02/ Active DAY For 15 CHF Social History Social History Problem Response Recorded Date/Time Hx Alcohol Use Yes 10/28/2014 7:58pm Hx Tobacco Use Yes 10/28/2014 7:58pm Smoking Status Current every day smoker 10/28/2014 6:29pm Query Response Start Date Stop Date Smoking Status Current every day smoker Hospital Discharge Instructions Discharge Instructions Provider Instructions Dismiss Date: November 02, 2014 Dismiss: Jennifer Fitch Diet: As Tolerated Activity: As Tolerated Discharge Instructions D/C home. Follow up with PCP in 1-2 weeks. Plan of Care Discharge Date 11/02/14 1:10pm Disposition [facility] ([facility]) Prescriptions See Medications Section Follow-up Orders Limited Area Ultraso CBC CMP Prothrombin Time PTT Functional Status Query Response Date Recorded Overall Activities Daily Living Independ/No setup help October 28, 2014 5:30pm Ability/Staff Support Toileting Ability/Staff Support Limited/One person assist November 01, 2014 12: 07am Oral Care Ability/Staff Support Patient Refused November 01, 2014 9:05pm Upper Body Dressing Ability/Staff Extens/One person assist November 01, 2014 12: 07am Support Lower Body Dressing Ability/Staff Extens/One person assist November 01, 2014 12: 07am Support Cognitive Skills Independent November 02, 2014 8:49am [...] F (96.0 - 99.9) Temperature (Calculated Celsius) 36.61522 degrees C Temperature Source Oral Temperature Source [...] Results Test Source Date Result Interp. Ref. Comments Range Activated Partial March 32.4 N 24.0-37.0 REASON FOR EXAM: AscitesDx Code 789.59 Thromboplast Time 2013 SECONDS Comments OTHER ASCITES 4:49pm Alanine October 14, 32 U/L N 5-40 Aminotransferase 2014 (ALT/SGPT) 2:55pm Albumin October 28, 2.9 gm/dL L 3.2-5.0 2014 2:55pm Albumin/Globulin October 28, 0.7 L 1.4-2.4 Ratio 2014 2:55pm Alkaline Phosphatase October 14, 149 U/L H 35-125 2014 2:55pm Amylase Level January 11, 39 U/L N 16-108 2005 8:08am Anion Gap October 19, 10.0 N 6-13 2014 5:35am Arterial Blood HCO3 June 27.2 H 21-27 DONE ON 10L/M NRB 2014 mEq/L MASKRESULTS GIVEN TO 9:45pm Arterial Blood Total June 28.6 mM/L H 21-27 CO2 2014 9:45pm Arterial Blood pH June 7.38 N 7.35-7.45 2014 9:45pm Aspartate Amino October 14, 34 U/L N 5-40 Transf (AST/SGOT) 2014 2:55pm B-Type Natriuretic October 14, 389 pg/mL H 15-100 Peptide 2014 2:55pm BUN/Creatinine Ratio October 19, 34.0 2014 5:35am Band Neutrophils August 18, 2.0 % N 0-7 2013 8:56pm Basophils # (Auto) October 14, 0.0 K/uL N 0-0.2 2014 2:55pm Basophils (%) (Auto) October 28, 0.4 % N 0-1 2014 2:55pm Basophils (Manual) August 18, 0.0 % N 0-1 2013 8:56pm Bedside Glucose October 19, 141 mg/dL H 70-120 Notify Nurse 2014 6:28am Bedside Troponin I August 19, < 0.05 0.00-0.05 <0.05 ng/mL= NORMAL0.05 - 0.40 ng/mL=CARDIAC CONDITION 2013 ng/mL >0.40 ng/mL=SUGGESTS AMI 9:45am Benzodiazepines June Negative NEGATIVE ROOM/COMMENTS 04Lab to draw N Screen 2010 If applicable:TELEPHONE/VERBAL order by (other than ) W 6:15am Blood Gas Base June 27.2 Excess 2014 mEq/L 9:45pm Blood Gas PCO2 June 46 mmHg H 35-45 2014 9:45pm Blood Gas PO2 June 143 mmHg H 89-100 2014 9:45pm Blood Urea Nitrogen October 19, 18 mg/dL N 8-25 2014 5:35am C-Reactive Protein October 20, 34.8 mg/L <6.0 2008 4:42pm Calcium Level October 19, 9.2 mg/dL N 8.2-10.6 2014 5:35am Carbon Dioxide Level October 19, 33 mEq/L N 22-34 2014 5:35am Chloride Level October 19, 94 mEq/L L 98-116 2014 5:35am Cholesterol Level August 16, 205 mg/dL H 120-[address] LOUIE AT [phone] SSW 10:35am Cocaine Screen June Negative NEGATIVE ROOM/COMMENTS 04Lab to draw N 2010 If applicable:TELEPHONE/VERBAL order by (other than ) W 6:15am Creatine Kinase MB August 19, 1.1 ng/mL N 0.0-6.0 2013 9:23am Creatinine November 02, 0.53 L 0.9-1.6 2014 mg/dL 5:35am D-Dimer Quantitative June 265 ng/mL <230 Results <230 ng/mL (PE/DVT) 2014 melita a 9:25pm negativepredictability for DVT or PE Direct Bilirubin April 0.0 mg/dL N 0-0.4 FAX TO [facility] 9:17am CENTERRESULTS FAXED Drug Screen (T) June Positive NEGATIVE ROOM/COMMENTS 04Lab to draw N 2010 If applicable:TELEPHONE/VERBAL order by (other than ) W 6:15am Eosinophils # (Auto) October 28, 0.1 K/uL N 0-0.8 2014 2:55pm Eosinophils (%) October 28, 0.6 % N 0-7.0 (Auto) 2014 2:55pm Eosinophils (Manual) August 18, 1.0 % N 0-7.0 2013 8:56pm Ethyl Alcohol Level September 14, 0.4 mg/dl N 0-10 A level below 10 mg/dl 2012 should be considered 11:25am negative. Free Thyroxine January 11, 0.6 ng/dL N 0.58-1.64 2005 8:08am Globulin October 28, 3.9 gm/dL H 2.0-3.0 2014 2:55pm Glomerular November 02, > MULTIPLY RESULT BY 1.210 IF THE PATIENT IS -AMERICANUnits are mL/min/1.73 m2 Filtration Rate Calc 2014 60.00 > 60 Normal kidney function 5:35am mL/min 30-59 Moderately decreased kidney function 15-29 Severely decreased kidney function <15 End-stage kidney failure Glycated Hemoglobin November 27, 5.5 % N 4.0-6.0 2010 2:59pm HDL Cholesterol August 16, 40 mg/dL N 40-[address] LOUIE AT [phone] SSW 10:35am Hematocrit October 28, 35.7 % L 40.0-54.0 2014 2:55pm Hemoglobin October 14, 12.0 g/dL L 14.0-18.0 2014 2:55pm Hypochromasia June 17+ 2013 5:25am Immature Blood Cells September 14, 0.2 K/uL N 0-0.4 COMMENT: 2012 11:25am Immature Granulocyte October 28, 0.13 K/uL N 0-0.40 # (Auto) 2014 2:55pm Immature Granulocyte October 28, 1.6 % H 0-0.5 % (Auto) 2014 2:55pm InFluenza Virus Type June Not NEGATIVE A (H1N1) (PCR) 2014 detected 9:40pm Indirect Bilirubin April 0.5 mg/dL N 0.1-0.8 FAX TO [facility] 2005 [facility] 9:17am CENTERRESULTS FAXED Influenza Virus Type June Positive NEGATIVE CALLED POSITIVE FLU A A (PCR) 2014 TO ER / 230506/29/14 9:40pm Influenza Virus Type June Negative NEGATIVE B (PCR) 2014 9:40pm LDL Cholesterol August 16, 145 mg/dL H 25-[address] LOUIE AT [phone] SSW 10:35am Lipase January 11, 8 U/L N 8-57 2005 8:08am Lymphocytes # (Auto) October 28, 0.8 K/uL L 0.9-5.2 2014 2:55pm Lymphocytes (%) October 28, 9.3 % L 16.0-44.0 (Auto) 2014 2:55pm Lymphocytes (Manual) August 18, 9.0 % L 21.0-51.0 2013 8:56pm MRSA Surveillance October 28, Mrsa NEGATIVE HAS SPECIMEN BEEN Screen 2014 negative OBTAINED/COLLECTED? Y 7:00pm Macrocytosis June 172013 5:25am Magnesium Level June 2.1 mg/dL N 1.3-2.5 2013 12:20pm Mean Corpuscular October 14, 33.3 pg H 26.0-33.0 Hemoglobin 2014 2:55pm Mean Corpuscular October 14, 33.6 g/dL N 31.0-36.0 Hemoglobin Concent 2014 2:55pm Mean Corpuscular October 28, 99.2 fL H 80.0-94.0 Volume 2014 2:55pm Mean Platelet Volume October 28, 10.8 fL N 7.0-11.0 2014 2:55pm Monocytes # (Auto) October 28, 1.2 K/uL H 0.16-1.0 2014 2:55pm Monocytes (%) (Auto) October 28, 14.6 % H 2.0-9.0 2014 2:55pm Monocytes (Manual) August 18, 10.0 % H 2.0-9.0 2013 8:56pm Neutrophils August 18, 78.0 % H 42.0-75.0 2013 8:56pm Neutrophils # (Auto) October 28, 6.0 K/uL N 1.9-8.0 2014 2:55pm Neutrophils (%) October 28, 73.5 % N 42.0-75.0 (Auto) 2014 2:55pm Nucleated Red Blood October 28, 0.00 K/uL N 0.0-0.012 Cells # 2015 2:55pm Nucleated Red Blood October 14, 0.0 N 0-0 Cells % 2014 /100WBC 2:55pm Phosphorus Level June 4.0 mg/dL N 2.5-4.5 2013 12:20pm Platelet Count October 14, 176 K/uL N 708-260 9003 2:55pm Platelet Estimate August 18, Normal NORMAL 2013 8:56pm Potassium Level November 02, 4.0 mEq/L N 3.5-5.1 2014 5:35am Prostate Specific November 27, 0.1 ng/ml N 0.0-3.5 Antigen 2010 2:59pm Prothromb Time March 1.20 L 2.0-3.0 REASON FOR EXAM: AscitesDx Code 789.59 International Ratio 2013 Comments OTHER ASCITES 4:49pm Prothrombin Time August 18, 11.0 N 9.0-12.0 2013 SECONDS 8:56pm Prothrombin Time March 12.9 H 9.0-12.0 REASON FOR EXAM: AscitesDx Code 789.59 Patient/Contrl Mix 2013 SECONDS Comments OTHER ASCITES 4:49pm RDW Standard October 28, 58.9 fL H 35.1-43.9 Deviation 2014 2:55pm Random Glucose October 19, 133 mg/dL H 65-115 2014 5:35am Red Blood Count October 28, 3.60 M/uL L 4.60-5.40 2014 2:55pm Red Cell October 14, 16.6 % H 11.5-14.5 Distribution Width 2014 2:55pm Sodium Level October 19, 133 mEq/L N [id number] 7822 5:35am Thyroid Stimulating November 27, 1.96 N 0.34-5.60 Hormone (TSH) 2010 uIU/ml 2:59pm Thyroxine (T4) January 11, 5.6 ug/dl N 4.7-11.5 2005 8:08am Total Bilirubin October 28, 1.8 mg/dL H 0.1-1.3 2014 2:55pm Total Creatine August 19, 25 U/L N 10-180 Kinase 2013 9:23am Total Protein October 28, 6.8 gm/dL N 6.0-8.4 2014 2:55pm Triglycerides Level August 16, 101 mg/dL N 45-[address] LOUIE AT [phone] SSW 10:35am Troponin I October 28, 0.01 N 0.0-0.02 2015 ng/mL 2:55pm Ur September 14, Negative NEGATIVE COMMENT: 03 Tetrahydrocannabinol 2012 (THC) Scrn 12:00am Ur Tricyclic September 14, Negative NEGATIVE COMMENT: 03 Antidepressants 2012 Screen 12:00am Urine Amorphous October 28, 1+ SOURCE: URINE, Sediment 2014 RANDOMHAS SPECIMEN BEEN 7:00pm OBTAINED/COLLECTED? Y Urine Amphetamines September 14, Negative NEGATIVE COMMENT: 03 Screen 2012 12:00am Urine Appearance October 28, Clear SOURCE: URINE, 2014 RANDOMHAS SPECIMEN BEEN 7:00pm OBTAINED/COLLECTED? Y Urine Bacteria October 28, None /hpf NONE SOURCE: URINE, 2014 RANDOMHAS SPECIMEN BEEN 7:00pm OBTAINED/COLLECTED? Y Urine Barbiturates June Negative NEGATIVE ROOM/COMMENTS 04Lab to draw N 2010 If applicable:TELEPHONE/VERBAL order by (other than ) W 6:15am Urine Barbiturates September 14, Negative NEGATIVE COMMENT: 03 Screen 2012 12:00am Urine September 14, Negative NEGATIVE COMMENT: 03 Benzodiazepines 2012 Screen 12:00am Urine Bilirubin October 28, Negative NEGATIVE SOURCE: URINE, 2014 RANDOMHAS SPECIMEN BEEN 7:00pm OBTAINED/COLLECTED? Y Urine Cannabinoids June Positive NEGATIVE ROOM/COMMENTS 04Lab to draw N 2010 If applicable:TELEPHONE/VERBAL order by (other than ) W 6:15am Urine Casts October 23, None /lpf NONE 2009 7:27am Urine Cocaine Screen September 14, Negative NEGATIVE COMMENT: 2012 12:00am Urine Color October 28, [place] SOURCE: URINE, 2014 RANDOMHAS SPECIMEN BEEN 7:00pm OBTAINED/COLLECTED? Y Urine Crystals October 23, None /hpf NONE 2009 7:27am Urine Epithelial October 28, Many /lpf SOURCE: URINE, Cells 2014 RANDOMHAS SPECIMEN BEEN 7:00pm OBTAINED/COLLECTED? Y Urine Glucose (UA) October 28, Negative NEGATIVE SOURCE: URINE, 2014 RANDOMHAS SPECIMEN BEEN 7:00pm OBTAINED/COLLECTED? Y Urine Ketones October 28, Negative NEGATIVE SOURCE: URINE, 2014 RANDOMHAS SPECIMEN BEEN 7:00pm OBTAINED/COLLECTED? Y Urine Leukocyte October 28, Negative NEGATIVE SOURCE: URINE, Esterase 2014 RANDOMHAS SPECIMEN BEEN 7:00pm OBTAINED/COLLECTED? Y Urine Methadone September 14, Negative NEGATIVE COMMENT: 03 Screen 2012 12:00am Urine September 14, Negative NEGATIVE COMMENT: Methamphetamines 2012 Screen 12:00am Urine Mucus October 14, 4+ /lpf NONE SOURCE: URINE, 2014 RANDOMHAS SPECIMEN BEEN 7:00pm OBTAINED/COLLECTED? Y Urine Nitrate October 28, Negative NEGATIVE SOURCE: URINE, 2014 RANDOMHAS SPECIMEN BEEN 7:00pm OBTAINED/COLLECTED? Y Urine Occult Blood October 28, Trace-letty NEGATIVE SOURCE: URINE, 2014 ed RANDOMHAS SPECIMEN BEEN 7:00pm OBTAINED/COLLECTED? Y Urine Opiates Screen September 14, Negative NEGATIVE COMMENT: 2012 12:00am Urine Phencyclidine September 14, Negative NEGATIVE COMMENT: Screen 2012 12:00am Urine Propoxyphene September 14, Negative NEGATIVE COMMENT: Screen 2012 12:00am Urine Protein October 28, Trace H NEGATIVE SOURCE: URINE, 2014 RANDOMHAS SPECIMEN BEEN 7:00pm OBTAINED/COLLECTED? Y Urine RBC October 14, 0-1 /hpf NONE SOURCE: URINE, 2014 RANDOMHAS SPECIMEN BEEN 7:00pm OBTAINED/COLLECTED? Y Urine Specific October 14, >=1.03 1.005-1.0 SOURCE: URINE, [place] 2014 0 30 RANDOMHAS SPECIMEN BEEN 7:00pm OBTAINED/COLLECTED? Y Urine Urobilinogen October 28, >=8.0 0.2-1.0 SOURCE: URINE, 2014 E.U./dL RANDOMHAS SPECIMEN BEEN 7:00pm OBTAINED/COLLECTED? Y Urine WBC October 14, 0-1 /hpf NONE SOURCE: URINE, 2014 RANDOMHAS SPECIMEN BEEN 7:00pm OBTAINED/COLLECTED? Y Urine WBC Clumps October 23, None NONE 2009 7:27am Urine pH October 28, 6.0 4.5-8.0 SOURCE: URINE, 2014 RANDOMHAS SPECIMEN BEEN 7:00pm OBTAINED/COLLECTED? Y VLDL Cholesterol August 16, 20.2 N 5-[address] LOUIE AT [phone] SSW 10:35am White Blood Count October 28, 8.2 K/uL N 5.0-10.0 2014 2:55pm Blood Culture Blood June growth. 10:09pm Gram Stain Sputum- June Expecto 2013 rated 1:46pm Sputum Procedures Procedure Status Date Provider(s) THER/PROPH/DIAG IV INF INIT completed 06/29/14 MARÍA ELENA SIMEON M.D. TX/PRO/DX INJ NEW DRUG ADDON completed 06/29/14 MARÍA ELENA SIMEON M.D. Encounters Encounter Location Date/Time Discharged Inpatient [facility] 10/29/14 10:47am Departed Emergency Room [facility] 06/29/14 9:15pm Office Visit [facility]ART[facility] 03/30/14 3:45pm Discharged Recurring [facility] 03/16/11 7:10pm Discharged Recurring [facility] 03/16/11 7:00pm Recent Diagnosis Acute hypoxia Chronic congestive heart failure Chronic obstructive lung disease DEPRESSIVE DISORDER NEC COPD with acute exacerbation Anasarca Diabetes mellitus, type 2 Abdominal distention Anasarca Ascites Scrotal swelling
--- OUTSIDE RECORDS SUMMARY | 2017-04-17 17:30 | External Medical Summary | Referral Summary ---
:1955 Author Organization [facility]] Address [address] [place] [address] Care Team Providers Name Role Phone Magdalena Plascencia Primary Care Physician Encounter [facility] [id number] Date(s): 09/21/15 - 09/21/15 [facility]3] [address] [place] [address] Discharge Disposition: 01-Home or Self Care Attending [...] Oral, Bedtime (once a day), [facility] [phone], # 60 tabs, 0 Refill(s) Start Date: [...] # 180 mL, eRx: [facility] [place] [place], USE ONE vial THREE TIMES DAILY [...]
--- OUTSIDE RECORDS SUMMARY | 2017-04-17 17:30 | External Medical Summary | Referral Summary ---
:1955 Author [facility] Address [address] [place] [address] [place] [address] Care Team Providers Name Role Phone Magdalena Plascencia Primary Care Physician Encounter [facility] Date(s): 11/25/14 - 11/25/14 [facility] [place] [address] Discharge Disposition: [...] Oral, Bedtime (once a day), [facility] [phone], # 60 tabs, 0 Refill(s) Start Date: [...] # 180 mL, eRx: [facility] [place], [place], USE ONE vial THREE TIMES DAILY [...]
--- OUTSIDE RECORDS SUMMARY | 2017-04-17 17:30 | External Medical Summary | CCD ---
:1955 Author Name SUZY MALLORY Address [address] [place] [address] [phone] Care Team Providers Name Role Phone ADILENE PEREZ Attending Physician Unavailable Vital Signs Unknown or Not Available. Allergies Unknown or Not Available. Procedures Unknown or Not Available. History of Immunizations Immunization Code Date pneumococcal polysaccharide PPV23 33 09/25/2011 pneumococcal polysaccharide PPV23 33 04/28/2012 Influenza, seasonal, injectable 141 05/07/2012 Influenza, seasonal, injectable 141 05/27/2013 Problems Unknown or Not Available. Results CBC W/ DIFF - Collect Date/Time: 11/09/2015 09:35 Test Name Code Test Result Test Units Test Ref Range WBC 6.4 x10^3 L=4.8 H=10.8 RBC 3.58 x10^6 L=4.70 H=6.10 HEMOGLOBIN 11.5 g/dL L=14.0 H=18.0 HEMATOCRIT 34.4 % L=42.0 H=52.0 [...] L=0.0 H=2.0 REFLEX MAN DIFF NO N/A OCCULT BLOOD STOOL IMMUNOASSAY - Collect Date/Time: 11/08/2015 13:00 Test Name Code Test Result Test Units Test Ref Range OCC BLOOD IM POSITIVE N/A NORMAL: NEGATIVE Active Medications Unknown or Not Available. Medications Administered During Visit Unknown or Not Available. Encounters Encounter Diagnosis Diagnosis Code Start Date Melena [id number] 11/09/2015 Social History Smoking Status Code Start Date End Date Unknown if ever smoked [id number] Patient Decision Aids Unknown or Not Available. Discharge Instructions You were admitted to [facility] on 11/09/2015 10:39 with a principal diagnosis of Melena You had the following tests done: CBC W/ DIFF OCCULT BLOOD STOOL IMMUNOASSAY You were discharged from [facility] on 11/09/2015 10:39 Should you have any [...]
--- OUTSIDE RECORDS SUMMARY | 2017-04-17 17:32 | External Medical Summary | Continuity of Care Document ---
:1955 Author Organization [facility] Allergies Active Description Code Type Severity Reaction Onset Reported/ Identified Relationship Clinical to Patient Status Yes No Known No Drug Unknown N/A 12/11/2008 Drug Known Aller Intolerances Drug gy Intol eranc es Yes No Known Drug N/A N/A 07/24/2013 Drug Aller Allergies gy Yes No Known NKMA N/A N/A 11/05/2014 Medication Allergies Yes No Known NKMA N/A N/A 11/05/2014 Medication Allergies Yes No Known NKMA N/A N/A 09/30/2015 Allergies Yes No Known No Drug Unknown UNKNOWN 05/17/2016 Drug Known Aller Intolerances Drug gy Intol eranc es Yes No Known No Drug Unknown UNKNOWN 05/17/2016 Drug Known Aller Intolerances Drug gy Intol eranc es Yes No Known No Drug Unknown N/A 08/07/2016 Allergies Known Aller Aller gy gies Medications Problems Date Dx Attending Type Code Diagnosis Diagnosed By Coded 09/22/2015 Jorden WALLACE, Reason Z01.810 Encounter for Gyanchand J preprocedural cardiovascular examination 09/22/2015 Jorden WALLACE, Final Z01.811 Encounter for Gyanchand J preprocedural respiratory examination 09/22/2015 Jorden WALLACE, Final I65.23 Occlusion and Gyanchand J stenosis of bilateral carotid arteries 10/14/2015 Jorden WALLACE, Final E11.9 Type 2 diabetes Gyanchand J mellitus without complications 10/14/2015 Jorden WALLACE, Final E66.9 Obesity, unspecified Gyanchand J 10/14/2015 Jorden WALLACE, Final E78.5 Hyperlipidemia, Gyanchand J unspecified 10/14/2015 Jorden WALLACE, Final E87.70 Fluid overload, Gyanchand J unspecified 10/14/2015 Jorden WALLACE, Final F17.200 Nicotine dependence, Gyanchand J unspecified, uncomplicated 10/14/2015 Jorden WALLACE, Final F20.9 Schizophrenia, Gyanchand J unspecified 10/14/2015 Jorden WALLACE, Final F32.9 Major depressive Gyanchand J disorder, single episode, unspecified 10/14/2015 Jorden WALLACE, Final I10 Essential (primary) Gyanchand J hypertension 10/14/2015 Jorden WALLACE, Admitting I25.10 Atherosclerotic Gyanchand J heart disease of [place] coronary artery without angina pect 10/14/2015 Jorden WALLACE, Final I48.91 Unspecified atrial Gyanchand J fibrillation 10/14/2015 Jorden WALLACE, Final I48.92 Unspecified atrial Gyanchand J flutter 10/14/2015 Jorden WALLACE, Final I50.21 Acute systolic Gyanchand J (congestive) heart failure 10/14/2015 Jorden WALLACE, Final I73.9 Peripheral vascular Gyanchand J disease, unspecified 10/14/2015 Jorden WALLACE, Final I82.812 Embolism and Gyanchand J thrombosis of superficial veins of left lower extremities 10/14/2015 Jorden WALLACE, Final J14 Pneumonia due to Gyanchand J Hemophilus influenzae 10/14/2015 Jorden WALLACE, Final J44.9 Chronic obstructive Gyanchand J pulmonary disease, unspecified 10/14/2015 Jorden WALLACE, Final Z23 Encounter for Gyanchand J immunization 10/14/2015 Jorden WALLACE, Final Z68.37 Body mass index Gyanchand J (BMI) 37.0-37.9, adult 10/14/2015 Jorden WALLACE, Final I25.10 Atherosclerotic Gyanchand J heart disease of [place] coronary artery without angina pect 10/20/2015 Jessica Brown Admitting R09.02 10/31/2015 Jessica Brown Admitting R09.02 Hypoxemia 10/31/2015 Jessica Brown Final A41.9 Sepsis, unspecified organism 10/31/2015 Jessica Brown Final D62 Acute posthemorrhagic anemia 10/31/2015 Jessica Brown Final E11.649 Type 2 diabetes mellitus with hypoglycemia without coma 10/31/2015 Jessica Brown Final F01.50 Vascular dementia without behavioral disturbance 10/31/2015 Jessica Brown Final G93.49 Other encephalopathy 10/31/2015 Jessica Brown Final I10 Essential (primary) hypertension 10/31/2015 Tannoury, Jessica Final I27.2 Other secondary pulmonary hypertension 10/31/2015 Kevin Jessica Final I48.0 Paroxysmal atrial fibrillation 10/31/2015 Kevin Jessica Final I50.33 Acute on chronic diastolic (congestive) heart failure 10/31/2015 Kevin Jessica Final J18.9 Pneumonia, unspecified organism 10/31/2015 Tannfaby Jessica Final J44.1 Chronic obstructive pulmonary disease with (acute) exacerbation 10/31/2015 Kevin Jessica Final J96.21 Acute and chronic respiratory failure with hypoxia 10/31/2015 Kevin Jessica Final K59.00 Constipation, unspecified 10/31/2015 Kevin Jessica Final L03.116 Cellulitis of left lower limb 10/31/2015 Kevin Jessica Final R65.20 Severe sepsis without septic shock 10/31/2015 Kevin Jessica Final Z95.1 Presence of aortocoronary bypass graft 05/17/2016 Moncho WALLACE, F E03.9 HYPOTHYROIDISM, Terry S UNSPECIFIED 05/17/2016 Moncho WALLACE, F E11.65 TYPE 2 DIABETES Terry S MELLITUS WITH HYPERGLYCEMIA 05/17/2016 Moncho WALLACE, F E66.9 OBESITY, UNSPECIFIED Terry S 05/17/2016 Moncho WALLACE, F E78.5 HYPERLIPIDEMIA, Terry S UNSPECIFIED 05/17/2016 Moncho WALLACE, F E87.1 HYPO-OSMOLALITY AND Terry S HYPONATREMIA 05/17/2016 Moncho WALLACE, F E87.2 ACIDOSIS Terry S 05/17/2016 Moncho WALLACE, F F17.200 NICOTINE DEPENDENCE, Terry S UNSPECIFIED, UNCOMPLICATED 05/17/2016 Moncho WALLACE, F F20.9 SCHIZOPHRENIA, Terry S UNSPECIFIED 05/17/2016 Moncho WALLACE, F F32.9 MAJOR DEPRESSIVE Terry S DISORDER, SINGLE EPISODE, UNSPECI 05/17/2016 Moncho WALLACE, F G89.29 OTHER CHRONIC PAIN Terry S 05/17/2016 Moncho WALLACE, F G93.1 ANOXIC BRAIN DAMAGE, Terry S NOT ELSEWHERE CLASSIFIED 05/17/2016 Moncho WALLACE, F I11.0 HYPERTENSIVE HEART Terry S DISEASE WITH HEART FAILURE 05/17/2016 Moncho WALLACE, F I25.10 ATHSCL HEART DISEASE Terry S OF [place] CORONARY ARTERY W/O 05/17/2016 Moncho WALLACE, F I27.2 OTHER SECONDARY Terry S PULMONARY HYPERTENSION 05/17/2016 Moncho WALLACE, F I42.9 CARDIOMYOPATHY, Terry S UNSPECIFIED 05/17/2016 Moncho WALLACE, F I48.2 CHRONIC ATRIAL Terry S FIBRILLATION 05/17/2016 Moncho WALLACE, F I48.92 UNSPECIFIED ATRIAL Terry S FLUTTER 05/17/2016 Moncho WALLACE, F I50.33 ACUTE ON CHRONIC Terry S DIASTOLIC (CONGESTIVE) HEART FAIL 05/17/2016 Moncho WALLACE, F I73.9 PERIPHERAL VASCULAR Terry S DISEASE, UNSPECIFIED 05/17/2016 Moncho WALLACE, F J20.9 ACUTE BRONCHITIS, Terry S UNSPECIFIED 05/17/2016 Moncho WALLACE, F J44.0 CHRONIC OBSTRUCTIVE Terry S PULMON DISEASE W ACUTE LOWER R 05/17/2016 Moncho WALLACE, F J44.1 CHRONIC OBSTRUCTIVE Terry S PULMONARY DISEASE W (ACUTE) EX 05/17/2016 Moncho WALLACE, F J96.21 ACUTE AND CHRONIC Terry S RESPIRATORY FAILURE WITH HYPOXIA 05/17/2016 Moncho WALLACE, F J96.22 ACUTE AND CHRONIC Terry S RESPIRATORY FAILURE WITH HYPERCA 05/17/2016 Moncho WALLACE, F K21.9 GASTRO-ESOPHAGEAL Terry S REFLUX DISEASE WITHOUT ESOPHAGIT 05/17/2016 Moncho WALLACE, F M54.9 DORSALGIA, Terry S UNSPECIFIED 05/17/2016 Moncho WALLACE, A R06.02 SHORTNESS OF BREATH Terry S 05/17/2016 Moncho WALLACE, F T38.0X5A ADVERSE EFFECT OF Terry S GLUCOCORT/SYNTH ANALOG, INIT 05/17/2016 Moncho WALLACE, F Z68.35 BODY MASS INDEX Terry S (BMI) 35.0-35.9, ADULT 05/17/2016 Moncho WALLACE, F Z79.02 CARE HOME (CURRENT) Terry S USE OF ANTITHROMBOTICS/ANTI SHELLY 05/17/2016 Moncho WALLACE, F Z79.4 CARE HOME (CURRENT) Terry S USE OF INSULIN 05/17/2016 Moncho WALLACE, F Z79.51 GRAY TENDER (CURRENT) Terry S USE OF INHALED STEROIDS 05/17/2016 Moncho WALLACE, F Z79.82 CARE HOME (CURRENT) Terry S USE OF ASPIRIN 05/17/2016 Moncho WALLACE, F Z99.81 DEPENDENCE ON Terry S SUPPLEMENTAL OXYGEN 07/24/2016 Angier DO, F A41.9 SEPSIS, UNSPECIFIED Smith C ORGANISM 07/24/2016 Mina DO, F B97.4 RESPIRATORY Smith C SYNCYTIAL VIRUS CAUSING DISEASES CLASS 07/24/2016 Angier DO, F E03.9 HYPOTHYROIDISM, Smith C UNSPECIFIED 07/24/2016 Angier DO, F E11.9 TYPE 2 DIABETES Smith C MELLITUS WITHOUT COMPLICATIONS 07/24/2016 Mina DO, F E66.9 OBESITY, UNSPECIFIED Smith C 07/24/2016 Mina DO, F E78.5 HYPERLIPIDEMIA, Smith C UNSPECIFIED 07/24/2016 Angier DO, F E87.0 HYPEROSMOLALITY AND Smith C HYPERNATREMIA 07/24/2016 Mina DO, F E87.5 HYPERKALEMIA Smith C 07/24/2016 Angier DO, F F20.9 SCHIZOPHRENIA, Smith C UNSPECIFIED 07/24/2016 Angier DO, F F32.9 MAJOR DEPRESSIVE Smith C DISORDER, SINGLE EPISODE, UNSPECI 07/24/2016 Angier DO, F G92 TOXIC ENCEPHALOPATHY Smith C 07/24/2016 Mina DO, F I11.0 HYPERTENSIVE HEART Smith C DISEASE WITH HEART FAILURE 07/24/2016 Mina DO, F I21.4 NON-ST ELEVATION Smith C (NSTEMI) MYOCARDIAL INFARCTION 07/24/2016 Angier DO, F I24.8 OTHER FORMS OF ACUTE Smith C ISCHEMIC HEART DISEASE 07/24/2016 Angier DO, F I25.10 ATHSCL HEART DISEASE Smith C OF [place] CORONARY ARTERY W/O 07/24/2016 Angier DO, F I27.2 OTHER SECONDARY Smith C PULMONARY HYPERTENSION 07/24/2016 Angier DO, F I42.9 CARDIOMYOPATHY, Smith C UNSPECIFIED 07/24/2016 Mina DO, F I48.91 UNSPECIFIED ATRIAL Smith C FIBRILLATION 07/24/2016 Angier DO, F I50.23 ACUTE ON CHRONIC Smith C SYSTOLIC (CONGESTIVE) HEART FAILU 07/24/2016 Mina SHARMA, F I73.9 PERIPHERAL VASCULAR Smith C DISEASE, UNSPECIFIED 07/24/2016 Mina SHARMA, F J12.9 VIRAL PNEUMONIA, Smith C UNSPECIFIED 07/24/2016 Mina SHARMA, F J44.0 CHRONIC OBSTRUCTIVE Smith C PULMON DISEASE W ACUTE LOWER R 07/24/2016 Mina SHARMA, F J44.9 CHRONIC OBSTRUCTIVE Smith C PULMONARY DISEASE, UNSPECIFIED 07/24/2016 Mina SHARMA, F J96.21 ACUTE AND CHRONIC Smith C RESPIRATORY FAILURE WITH HYPOXIA 07/24/2016 Mina SHARMA, F J96.22 ACUTE AND CHRONIC Smith C RESPIRATORY FAILURE WITH HYPERCA 07/24/2016 Mina SHARMA, F K21.9 GASTRO-ESOPHAGEAL Smith C REFLUX DISEASE WITHOUT ESOPHAGIT 07/24/2016 Mina SHARMA, F M54.9 DORSALGIA, Smith C UNSPECIFIED 07/24/2016 Mina SHARMA, F R65.21 SEVERE SEPSIS WITH Smith Chou SEPTIC SHOCK 07/24/2016 Mina SHARMA, F Z51.5 ENCOUNTER FOR Smith Chou PALLIATIVE CARE 07/24/2016 Mina SHARMA, F Z68.32 BODY MASS INDEX Smith Chou (BMI) 32.0-32.9, ADULT 07/24/2016 Mina SHARMA, F Z79.4 GRAY TENDER (CURRENT) Smith Chou USE OF INSULIN Procedures Code Description Performed By Performed On 10/04/2015 [id number] Performance of Cardiac Output, Continuous Moncho WALLACE, Terry S 05/17/2016 [id number] ASSISTANCE WITH RESPIRATORY VENTILATION, 24-96 HRS Smith Enriquez DO 07/24/2016 [id number] INSERTION OF INFUSION DEV INTO SUP VENA CAVA, PERC Elijah Chau DO 07/24/2016 [id number] RESPIRATORY VENTILATION, GREATER THAN 96 CONSECUTI Encounters ACCT No. Visit Discharge Status Pt. Type Provider Facility Loc./Unit Complaint Date/Time [id number] 07/24/2013 07/24/2013 CLS Emergenc Camilo WALLACE, Via [facility] [id number] 03:04:00 23:59:59 y [facility] on Ethan [id number] 12/15/2014 12/15/2014 DIS Outpatie Tonio, Via [facility] New NPV/ ATRIAL [id number] 14:31:00 23:59:00 nt Michael Ariane Card FLUTTER/SOA/ Clinic EWY [id number] 10/20/2015 10/28/2015 DIS Sofia Brown, [facility] F4SW ALOC, [id number] 15:49:00 12:17:00 t Jessica Thakkar HYPOXIA, Hospital PULMONARY on [facility] RECENT CABG [id number] 10/04/2015 10/13/2015 DIS Sofia Leonardo MD, [facility] F4CT CAD [id number] 05:02:00 18:41:00 t [facility] on [facility] [id number] 09/21/2015 09/21/2015 DIS Dick Leonardo MD, [facility] Encounter [id number] 13:56:00 23:59:[address] [facility] Ultrasound [facility] preprocedura on [facility] cardiovascul ar exam [id number] 05/29/2016 ACT Unknown [id number] 08:54:00 [id number] 05/16/2016 ACT Unknown [id number] 12:41:00 [id number] 04/23/2016 ACT Unknown [id number] 14:04:00 [id number] 01/09/2016 ACT Unknown [id number] 11:58:00 [id number] 11/29/2015 ACT Unknown [id number] 11:00:00 [id number] 11/23/2015 ACT Unknown [id number] 08:35:00 [id number] 11/10/2015 ACT Unknown [id number] 07:36:00 [id number] 08/31/2015 ACT Unknown [id number] 10:36:00 [id number] 07/12/2015 ACT Unknown [id number] 10:36:00 [id number] 05/17/2016 05/23/2016 YUNIER Ivan MD, Loki WeaverT3 [id number] 16:00:00 11:50:00 t [facility] & [id number] 07/24/2016 08/07/2016 YUNIER Meyer10TN [id number] 11:24:00 14:20:00 [facility]
[2017-04-17] MEDS ORDERED: MEROPENEM 2 GM in NS 100 ML IV SCH (18:00)
[2017-04-17] MEDS ORDERED: PROMETHAZINE 25 MG INJECTION IVP PRN (18:22)
[2017-04-17] MEDS ORDERED: NS IV SCH (18:22)
[2017-04-17] MEDS ORDERED: NS 1,000 ML IV ONE (18:22)
[2017-04-17] MEDS ORDERED: MORPHINE SULFATE 4mg INJECTION IVP PRN ×2 (18:22)
[2017-04-17] MEDS ORDERED: NOREPINEPHRINE DRIP IV SCH (18:22)
[2017-04-17] MEDS ORDERED: HYDROCODONE/APAP 7.5 MG/325 MG TABLET PO PRN (18:22)
[2017-04-17] MEDS ORDERED: METOCLOPRAMIDE 10mg/2ml INJECTION IVP PRN (18:22)
[2017-04-17] MEDS ORDERED: LORazepam 0.5 MG TABLET PO PRN (18:22)
[2017-04-17] MEDS ORDERED: HYDROCORTISONE SOD SUCC 100mg/2ml INJECTION IVP ONE (18:22)
[2017-04-17] MEDS ORDERED: ONDANSETRON 4 MG/2 ML INJECTION IVP PRN ×2 (18:22)
[2017-04-17] MEDS: MEROPENEM 2 GM in NS 100 ML IV SCH (18:23)
[2017-04-17] MEDS ORDERED: VANCOMYCIN - PHARMACY CONSULT MC ONE (18:31)
[2017-04-17] MEDS ORDERED: IOHEXOL 300mg/ml 75ml INJECTION ONE (18:34)
[2017-04-17] MEDS ORDERED: SALINE FLUSH 10ml SYRINGE ONE (18:35)
[2017-04-17] MEDS ORDERED: NS 100 ML ONE (18:35)
--- NOTE | 2017-04-17 18:50 | History & Physical Report ---
History of Present Illness Date: 04/17/17 Chief complaint: s/p cardiac arrest HPI: The 62-year-old man was brought to the ICU status post 2 code blue arrests with successful resuscitation. (See emergency room intake report) He had been intubated and was just returning from the [place] where he was found to have widely patent vessels. CT of the head was benign despite some minor left temporal trauma. He arrives to md intubated and unresponsive with pinned and fixed pupils. He is on dopamine and vasopressin. Patient is obviously critically ill Historically the patient is living in a penitentiary at the age of 62 because he is a poorly compliant schizophrenic who was continuing to smoke at home despite being on oxygen. His family fearing for the dangers chronically poor judgment had placed him in nursing care. He is not been a smoker for many months now unless he has been secretly acquiring them. He does use 2 to 3 L reportedly by nasal cannula in the penitentiary. Apparently he had been complaining of back pain and had an abscess that was ruptured 2 in spots and was treated with antibiotics for a few days prior. Review of Systems ROS unobtainable: due to endotracheal tube, due to mental status [facility] Reported COPD with oxygen dependence, coronary artery disease with CABG, schizophrenia, medical noncompliance hazardous to health Surgical History: Coronary artery bypass graft - Social History Smoking status: Current every day smoker second hand exposure: Yes Substance use type: marijuana, inhalants Alcohol intake: former Housing: penitentiary Medications Home Medications Medication Instructions Recorded Confirmed Type Famotidine 20 mg PO HS #0 11/19/14 04/17/17 History LORazepam [Ativan] 1 mg PO Q6H #0 11/19/14 04/17/17 History Lisinopril 5 mg PO HS #0 11/19/14 04/17/17 History Polyethylene Glycol 3350 [Miralax] 17 g PO BID #0 11/19/14 04/17/17 History Tiotropium [place] [Spiriva] 1 cap ORAL INH DAILY #0 11/19/14 04/17/17 History Thiamine HCl [Vitamin B-1] 100 mg PO DAILY #0 06/13/15 04/17/17 History Docusate Sodium [Colace] 200 mg PO BID #0 08/23/15 04/17/17 History Levothyroxine Sodium [Synthroid] 50 mcg PO ACB #0 08/23/15 04/17/17 History Carvedilol 3.125 mg PO BID #0 12/22/15 04/17/17 History Dabigatran Etexilate Mesylate 150 mg PO BID #0 12/22/15 04/17/17 History [Pradaxa] Hydrocodone/Acetaminophen [[place] 1 tab PO BID #0 12/22/15 04/17/17 History 7.5-325 Tablet] Vitamin B Complex 1 tab PO DAILY #0 12/22/15 04/17/17 History Atorvastatin Calcium 10 mg PO HS #0 09/29/16 04/17/17 History Furosemide 40 mg PO BID #0 09/29/16 04/17/17 History Hydrocodone/Acetaminophen 1 tab PO QID PRN #0 09/29/16 04/17/17 History [Hydrocodon-Acetaminoph 7.5-325] Ipratropium/Albuterol Sulfate 1 vial AEROSOL TID #0 09/29/16 04/17/17 History [Iprat-Albut 0.5-3(2.5) mg/3 ml] Paliperidone [Paliperidone ER] 1.5 mg PO DAILY #0 09/29/16 04/17/17 History Paliperidone [Paliperidone ER] 9 mg PO DAILY #0 09/29/16 04/17/17 History Buspirone [Buspar] 10 mg PO TID 04/17/17 04/17/17 History Ceftriaxone [Rocephin] 1 gm IM DAILY 04/17/17 04/17/17 History Ferrous Sulfate 650 mg PO DAILY 04/17/17 04/17/17 History Fluticasone/Salmeterol [Advair Hfa 2 puff INH BID 04/17/17 04/17/17 History 230-21 Mcg Inhaler] Gabapentin [Neurontin] 100 mg PO DAILY 04/17/17 04/17/17 History Gabapentin [Neurontin] 300 mg PO BID 04/17/17 04/17/17 History Insulin Aspart [Novolog Flexpen] 5 unit SQ PRN PRN 04/17/17 04/17/17 History Insulin Aspart [Novolog Flexpen] 35 unit SQ TIDWM 04/17/17 04/17/17 History Insulin Detemir [Levemir Flextouch] 45 unit SQ HS 04/17/17 04/17/17 History Nicotine Patch [Nicoderm] 7 mg TD DAILY 04/17/17 04/17/17 History Potassium Chloride 30 mg PO DAILY 04/17/17 04/17/17 History Ropinirole [Requip] 2 mg PO HS 04/17/17 04/17/17 History Sertraline [Zoloft] 150 mg PO DAILY 04/17/17 04/17/17 History buPROPion HCl [Bupropion HCl Sr] 150 mg PO BID 04/17/17 04/17/17 History Allergies Allergy/AdvReac Type Severity Reaction Status Date / Time No Known Allergies Allergy Unverified 04/17/17 15:23 Exam Vital Signs: Temperature 96 F L 04/17/17 15:25 Pulse Rate 61 04/17/17 15:25 Respiratory Rate 16 04/17/17 15:25 Blood Pressure 78/49 04/17/17 15:25 Telemetry Rhythm: Sinus Tachycardia - Constitutional Present: severe distress, obese, obtunded - Routine HEENT Exam Head: Present: abrasion, laceration, hematoma Eye: Absent: EOMI ENT: Present: mucous membranes moist - Routine Neck Exam Present: supple. Absent: JVD - Routine Respiratory Exam Present: patient mechanically ventilated, CTA bilaterally - Routine Cardiovascular Exam Present: RRR - Routine Abdominal Exam Present: soft, distended. Absent: tenderness, guarding - Routine Extremities Exam Present: extremity cold to touch - Routine Skin Exam Present: lesions - Routine Neurological Exam Present: altered mental status. Absent: alert - Routine Psychiatric Exam Present: unable to assess Results - Labs CBC & Chem 7: 04/17/17 15:32 04/17/17 18:46 - ABG Interpretation Attestation: I reviewed and interpreted this ABG. ABG results: 04/17/17 17:47 ABG pH 7.200 L* ABG pCO2 69 H* ABG pO2 81 ABG HCO3 27 H ABG Total CO2 29.1 H ABG O2 Saturation 93.0 L ABG Base Excess -2.4 L Interpretation: respiratory acidosis Assessment and Plan (1) Successful cardiopulmonary resuscitation Current visit: Yes Status: Acute (2) Necrotizing fasciitis Current visit: Yes Status: Acute (3) Septic shock due to Gram positive bacteria Current visit: Yes Status: Chronic (4) Acute hyperkalemia Current visit: Yes Status: Acute (5) Acute respiratory failure requiring reintubation Current visit: Yes Status: Acute (6) Schizophrenia Current visit: Yes Status: Acute (7) COPD exacerbation Current visit: Yes Status: Acute Assessment and Plan: The patient was rolled over revealing and 8 to 10 cm roughly circular risen and indurated purple plegmon with thick purulent drainage that was highly suspicious for necrotizing fasciitis. Septic shock protocol workup began: All fluids were increased to maximal rates available by IV dopamine and vasopressin were titrated up to preserve mean arterial pressure STAT orders to pharmacy for loading dose of vancomycin and meropenem at maximum dose 2 mg Q8 hours were ordered Dr. Allison was consulted for potential emergency surgery. An urgent CT of chest to determine the degree of tunneling that the expected fasciitis was ordered Dr. Allison arrived before the patient was transferred to CT and determined that surgical exploration took precedent over imaging. Patient displays multiorgan system failure with severe sepsis and shock. The elevated lactate of 2.7 is probably understated and more concerning is the elevated INR of 1.84 most likely due to secondary coagulopathy from impending DIC. The patient has a leukocytosis WBC 23 with 17% bands. We'll get D dimer and fibrinogen levels as well as INR PTT Pulmonary failure is likely secondary to sepsis as well as is the cardiac arrest. Patient requires pressers and will likely need antiarrhythmic's as well at some course during the intensive care unit stay. I appreciate Dr Mendoza's input on this. Patient's family arrived back in the intensive care unit and I discussed with the family that the patient was a very poor prognostic point. The father holds work that maintains power of assistant city attorney and at the time he stated that he "wants everything done" for his son. His family notes that he is already outlived 2 of his boys, and so he is determined to make every effort to keep his remaining son. Dr. Allison is taking the patient to emergency surgery at this time. I would not be adverse to him canceling the CT if he feels as though he has enough information regarding fasciitis after open exploration. Critical care time performed thus far 115 minutes. Intubation performed by emergency room prior to my assumption of care. DVT Prophylaxis: SQ Heparin Resuscitation Status: Full Code - Time spent with patient Time with patient PN: other Sepsis Assessment - Evaluation Possible source: skin/soft tissue Confirmed Suspected Infection: Yes SIRS Criteria: acute mental status change, temperature < or equal to 96.8, pulse > or equal to 90 beats/minute, WBC > or equal to 12,000 Severe Sepsis: MAP <65, SpO2 <90% or ventilated, lactate > or equal to 2.0 mg/dl , INR > 1.5 Septic Shock: Map <65 after 30 mL/kg IVF bolus Hospital Course Summary Disclaimer: The visit summary below is not to be considered part of the above Progress Note.
--- NOTE | 2017-04-17 19:14 | General Surgery Consult Note ---
Consult date: 04/17/17 Attending Physician: Reji Tabor MD Reason for consult: wound care PFSH Depression Diabetes HTN Alcohol abuse Mental illness Most history obtained from medication record, further detail is currently unobtainable. Surgical History: Unknown at this time Family History: Unobtainable, patient intubated. Noncontributory - Social History Smoking status: Current every day smoker Housing: half-way ([facility]) Medications Home Medications Medication Instructions Recorded Confirmed Type Famotidine 20 mg PO HS #0 11/19/14 04/17/17 History LORazepam [Ativan] 1 mg PO Q6H #0 11/19/14 04/17/17 History Lisinopril 5 mg PO HS #0 11/19/14 04/17/17 History Polyethylene Glycol 3350 [Miralax] 17 g PO BID #0 11/19/14 04/17/17 History Tiotropium [place] [Spiriva] 1 cap ORAL INH DAILY #0 11/19/14 04/17/17 History Thiamine HCl [Vitamin B-1] 100 mg PO DAILY #0 06/13/15 04/17/17 History Docusate Sodium [Colace] 200 mg PO BID #0 08/23/15 04/17/17 History Levothyroxine Sodium [Synthroid] 50 mcg PO ACB #0 08/23/15 04/17/17 History Carvedilol 3.125 mg PO BID #0 12/22/15 04/17/17 History Dabigatran Etexilate Mesylate 150 mg PO BID #0 12/22/15 04/17/17 History [Pradaxa] Hydrocodone/Acetaminophen [[place] 1 tab PO BID #0 12/22/15 04/17/17 History 7.5-325 Tablet] Vitamin B Complex 1 tab PO DAILY #0 12/22/15 04/17/17 History Atorvastatin Calcium 10 mg PO HS #0 09/29/16 04/17/17 History Furosemide 40 mg PO BID #0 09/29/16 04/17/17 History Hydrocodone/Acetaminophen 1 tab PO QID PRN #0 09/29/16 04/17/17 History [Hydrocodon-Acetaminoph 7.5-325] Ipratropium/Albuterol Sulfate 1 vial AEROSOL TID #0 09/29/16 04/17/17 History [Iprat-Albut 0.5-3(2.5) mg/3 ml] Paliperidone [Paliperidone ER] 1.5 mg PO DAILY #0 09/29/16 04/17/17 History Paliperidone [Paliperidone ER] 9 mg PO DAILY #0 09/29/16 04/17/17 History Buspirone [Buspar] 10 mg PO TID 04/17/17 04/17/17 History Ceftriaxone [Rocephin] 1 gm IM DAILY 04/17/17 04/17/17 History Ferrous Sulfate 650 mg PO DAILY 04/17/17 04/17/17 History Fluticasone/Salmeterol [Advair Hfa 2 puff INH BID 04/17/17 04/17/17 History 230-21 Mcg Inhaler] Gabapentin [Neurontin] 100 mg PO DAILY 04/17/17 04/17/17 History Gabapentin [Neurontin] 300 mg PO BID 04/17/17 04/17/17 History Insulin Aspart [Novolog Flexpen] 5 unit SQ PRN PRN 04/17/17 04/17/17 History Insulin Aspart [Novolog Flexpen] 35 unit SQ TIDWM 04/17/17 04/17/17 History Insulin Detemir [Levemir Flextouch] 45 unit SQ HS 04/17/17 04/17/17 History Nicotine Patch [Nicoderm] 7 mg TD DAILY 04/17/17 04/17/17 History Potassium Chloride 30 mg PO DAILY 04/17/17 04/17/17 History Ropinirole [Requip] 2 mg PO HS 04/17/17 04/17/17 History Sertraline [Zoloft] 150 mg PO DAILY 04/17/17 04/17/17 History buPROPion HCl [Bupropion HCl Sr] 150 mg PO BID 04/17/17 04/17/17 History Allergies Allergy/AdvReac Type Severity Reaction Status Date / Time No Known Allergies Allergy Unverified 04/17/17 15:23 Review of Systems 10-point ROS: not fully reviewed ROS unobtainable: due to endotracheal tube - Vital Signs Last Vital Signs Temp 96 F L 04/17/17 15:25 Pulse 61 04/17/17 15:25 Resp 16 04/17/17 15:25 BP 78/49 04/17/17 15:25 - Laboratory Result Diagrams: 04/17/17 15:32 04/17/17 18:46 - Microbiogy Microbiology 04/17/17 18:46 Peripheral/Iv Start Blood Culture - Preliminary Culture Initiated - Results Pending 04/17/17 18:46 Peripheral/Iv Start Blood Culture - Preliminary Culture Initiated - Results Pending General Surgery Results - Results Labs: 04/17/17 18:46 Microbiology: Microbiology 04/17/17 18:46 Peripheral/Iv Start Blood Culture - Preliminary Culture Initiated - Results Pending 04/17/17 18:46 Peripheral/Iv Start Blood Culture - Preliminary Culture Initiated - Results Pending Hospital Course Summary Disclaimer: The visit summary below is not to be considered part of the above Progress Note.
--- NOTE | 2017-04-17 19:27 | Anesthesia Preoperative Report ---
Anesthesia Preoperative Record - Date and Time Date: 04/17/17 Preoperative Diagnosis: S/P arrest, septic shock, poss bec fascitis NPO Since Date: 04/17/17 (unknown. patient rescucitated at the [place] and [place]) Allergies/Adverse Reactions: Allergies Allergy/AdvReac Type Severity Reaction Status Date / Time No Known Allergies Allergy Unverified 04/17/17 15:23 - Vital Signs Vital Signs: Temperature 96 F L 04/17/17 15:25 Pulse Rate 72 04/17/17 17:20 Respiratory Rate 20 04/17/17 17:20 Blood Pressure 78/49 04/17/17 15:25 Pulse Oximetry 90 04/17/17 17:20 - Medications Inpatient Medications: Current Medications Hydrocodone Bitart/Acetaminophen ([place] 7.5/325) 1 - 2 tab PO Q5H PRN PRN Reason: Pain Heparin Sodium (Porcine) (Heparin Sq) 5,000 units SQ Q8HR PAUL Norepinephrine Bitartrate 4, (000 mcg/ Sodium Chloride) 254 mls @ 38.1 mls/hr IV .Q6H40M PRN; 10 MCG/MIN PRN Reason: Protocol Meropenem 2 gm/ Sodium (Chloride) 100 mls @ 100 mls/hr IV Q8H PAUL Last Admin: 04/17/17 18:23 Dose: 100 mls/hr Vancomycin HCl 2,000 mg/ (Sodium Chloride) 500 mls @ 250 mls/hr IV Q8H PAUL Last Admin: 04/17/17 19:00 Dose: 250 mls/hr Dopamine HCl/Dextrose (Dopamine Drip) 400 mg in 250 mls @ 23.081 mls/hr IV .[id number] PAUL; 5 MCG/KG/MIN PRN Reason: Protocol Levofloxacin/Dextrose (Levaquin Premix) 750 mg in 150 mls @ 100 mls/hr IV 2200 PAUL Lorazepam (Ativan) 0.5 - 1 mg PO Q4H PRN PRN Reason: Anxiety Lorazepam (Ativan Inj) 0.5 - 1 mg IVP Q4H PRN PRN Reason: Anxiety Metoclopramide HCl (Reglan) 5 - 10 mg IVP Q6H PRN PRN Reason: Nausea &/or vomiting Morphine Sulfate (Morphine Sulfate Inj) 2 - 4 mg IVP Q5M PRN PRN Reason: Angina Morphine Sulfate (Morphine Sulfate Inj) 2 - 4 mg IVP Q2H PRN PRN Reason: Pain Stop: 04/18/17 18:21 Ondansetron HCl (Zofran) 4 mg IVP Q6H PRN PRN Reason: Nausea &/or vomiting Pantoprazole Sodium (Protonix Iv) 40 mg IVP DAILY PAUL Promethazine HCl (Phenergan Inj) 12.5 - 25 mg IVP Q6H PRN PRN Reason: Nausea &/or vomiting Sodium Chloride (Iv Flush) 10 - 80 ml IV PRN PRN PRN Reason: [place] Home Medications: Home Medications Medication Instructions Recorded Confirmed Type Famotidine 20 mg PO HS #0 11/19/14 04/17/17 History LORazepam [Ativan] 1 mg PO Q6H #0 11/19/14 04/17/17 History Lisinopril 5 mg PO HS #0 11/19/14 04/17/17 History Polyethylene Glycol 3350 [Miralax] 17 g PO BID #0 11/19/14 04/17/17 History Tiotropium [place] [Spiriva] 1 cap ORAL INH DAILY #0 11/19/14 04/17/17 History Thiamine HCl [Vitamin B-1] 100 mg PO DAILY #0 06/13/15 04/17/17 History Docusate Sodium [Colace] 200 mg PO BID #0 08/23/15 04/17/17 History Levothyroxine Sodium [Synthroid] 50 mcg PO ACB #0 08/23/15 04/17/17 History Carvedilol 3.125 mg PO BID #0 12/22/15 04/17/17 History Dabigatran Etexilate Mesylate 150 mg PO BID #0 12/22/15 04/17/17 History [Pradaxa] Hydrocodone/Acetaminophen [[place] 1 tab PO BID #0 12/22/15 04/17/17 History 7.5-325 Tablet] Vitamin B Complex 1 tab PO DAILY #0 12/22/15 04/17/17 History Atorvastatin Calcium 10 mg PO HS #0 09/29/16 04/17/17 History Furosemide 40 mg PO BID #0 09/29/16 04/17/17 History Hydrocodone/Acetaminophen 1 tab PO QID PRN #0 09/29/16 04/17/17 History [Hydrocodon-Acetaminoph 7.5-325] Ipratropium/Albuterol Sulfate 1 vial AEROSOL TID #0 09/29/16 04/17/17 History [Iprat-Albut 0.5-3(2.5) mg/3 ml] Paliperidone [Paliperidone ER] 1.5 mg PO DAILY #0 09/29/16 04/17/17 History Paliperidone [Paliperidone ER] 9 mg PO DAILY #0 09/29/16 04/17/17 History Buspirone [Buspar] 10 mg PO TID 04/17/17 04/17/17 History Ceftriaxone [Rocephin] 1 gm IM DAILY 04/17/17 04/17/17 History Ferrous Sulfate 650 mg PO DAILY 04/17/17 04/17/17 History Fluticasone/Salmeterol [Advair Hfa 2 puff INH BID 04/17/17 04/17/17 History 230-21 Mcg Inhaler] Gabapentin [Neurontin] 100 mg PO DAILY 04/17/17 04/17/17 History Gabapentin [Neurontin] 300 mg PO BID 04/17/17 04/17/17 History Insulin Aspart [Novolog Flexpen] 5 unit SQ PRN PRN 04/17/17 04/17/17 History Insulin Aspart [Novolog Flexpen] 35 unit SQ TIDWM 04/17/17 04/17/17 History Insulin Detemir [Levemir Flextouch] 45 unit SQ HS 04/17/17 04/17/17 History Nicotine Patch [Nicoderm] 7 mg TD DAILY 04/17/17 04/17/17 History Potassium Chloride 30 mg PO DAILY 04/17/17 04/17/17 History Ropinirole [Requip] 2 mg PO HS 04/17/17 04/17/17 History Sertraline [Zoloft] 150 mg PO DAILY 04/17/17 04/17/17 History buPROPion HCl [Bupropion HCl Sr] 150 mg PO BID 04/17/17 04/17/17 History - Medical History Respiratory: Reports: Chronic Obstructive Pulmonary Disease (COPD) (exacerbation ) Cardiovascular: Reports: Abnormal EKG, Arrhythmia (Cardiac arrest. Post rescucitated x 2. ), Other (patient on pressors, dopamine and norepi.) Gastrointestional: Reports: Morbid Obesity Neuro/Musculoskeletal: Reports: Loss of Consciousness (unresponsive on ventilator), Other (history of schizophrenia. Lives in a fci) - Surgical History Anesthesia Reactions: Other (unknown patient intubated, immediate family not present) - Social History Smoking Status: Current every day smoker Substance Use Type: marijuana, inhalants (past history) Alcohol Intake Frequency: former alcohol drinker - Pertinent Findings Laboratory: CBC and BMP 04/17/17 18:46 BMP 04/17/17 18:46 Sodium 140 Potassium 5.0 D Chloride 101 Carbon Dioxide 31 H D BUN 30.0 H Creatinine 1.6 H D Glucose 95 Calcium 7.4 L D Cardiac Enzymes 04/17/17 Range/Units 18:46 Troponin I 0.430 H D (0-0.12) ng/ml Liver Function 04/17/17 Range/Units 18:46 Total Bilirubin 0.60 (0.20-1.30) MG/DL AST 247 H (17-59) U/L ALT 220 H (21-72) U/L Alkaline Phosphatase 155 H D (38-126) U/L Albumin 2.9 L (3.5-5.0) G/DL EKG: Sinus Tachycardia - Airway Assessment TMD: 3 Fingerbreadths Neck Extension: other Overall Assessment: other (already intubated of vent.) - ASA ASA Score: 5, E - Plan Anesthesia: General Inhalation Gases - Discussion Discussion: Discussed risks/options/alternatives of anesthesia and questions answered. Patient consents. Nursing pain assessment noted. Attestation Statement: Prior to the delivery of any anesthetic medication, I examined the patient, developed the plan, obtained the patient's consent and discussed the risk and benefits of the procedure with the patient/guardian. - Additional Information Seen by Anesthesia: Yes
[2017-04-17] MEDS ORDERED: NS FLUSH BAG 500ml IV PRN (19:38)
[2017-04-17] MEDS: DOPamine PREMIX 400 MG/250 ML BAG IV SCH (19:53)
[2017-04-17] MEDS: LEVOFLOXACIN PB 750 MG/150 ML BAG IV SCH (19:55)
[2017-04-17] MEDS: NS 1,000 ML IV SCH ×2 (20:03→21:07)
[2017-04-17] MEDS ORDERED: ROCURONIUM 50 MG/5 ML INJECTION IVP ONE (20:17)
[2017-04-17] MEDS ORDERED: MIDAZOLAM 2mg/2ml INJECTION IVP ONE (20:17)
[2017-04-17] MEDS ORDERED: FentaNYL 100 MCG/2 ML INJECTION IVP ONE (20:17)
[2017-04-17] MEDS: SALINE FLUSH 10ml SYRINGE IV PRN (20:48)
--- NOTE | 2017-04-17 21:06 | General Surgery Procedure Note ---
Date of Procedure: 04/17/17 Surgeon: Estefany Lot Associate: Yaya Waller APRN Postoperative Diagnosis: Large infected cyst upper mid back Procedure: Wide debridement of large abscess upper mid back. Estimated Blood Loss: See Anesthesia Record. Pathology: other (cultures)
[2017-04-17] MEDS ORDERED: IDARUCIZUMAB 2.5 GM/50 ML IVP ONE (21:20)
[2017-04-18] MEDS: LEVOFLOXACIN PB 750 MG/150 ML BAG IV SCH (00:07)
[2017-04-18] MEDS: NS 1,000 ML IV SCH ×4 (00:19→18:01)
[2017-04-18] MEDS: DOPamine PREMIX 400 MG/250 ML BAG IV SCH ×5 (00:59→20:11)
[2017-04-18] MEDS: MEROPENEM 2 GM in NS 100 ML IV SCH ×3 (01:46→17:43)
[2017-04-18] MEDS: HEPARIN SUB-Q 5,000 UNITS/0.5 ML INJECTION SQ SCH ×3 (01:46→19:16)
[2017-04-18 05:29] VITALS: BMI 43.5
[2017-04-18] MEDS: REFRESH CLASSIC Eye Drops 0.4ml EACH EYE PRN ×2 (06:09→08:50)
[2017-04-18] MEDS ORDERED: ALBUTEROL 2.5mg/3ml (0.083%) NEB AEROSOL PRN (06:22)
[2017-04-18] MEDS ORDERED: ALBUTEROL 2.5mg/3ml (0.083%) NEB AEROSOL SCH ×2 (07:00→13:00)
[2017-04-18] MEDS ORDERED: FUROSEMIDE 100 MG/10 ML INJECTION IVP ONE (07:12)
--- NOTE | 2017-04-18 08:31 | Consultation ---
DATE OF CONSULTATION 04/17/2017 FINDINGS Mr. Trent is a 62-year-old gentleman I was asked to see this evening as a result of suspected necrotizing fasciitis involving his upper thoracic region. The patient has somewhat of a unique history. The patient was intubated and unresponsive. I was therefore, of course, unable to obtain any information from the patient himself. The patient's niece was present and did provide some of the information and additional information was obtained from nursing staff. The niece informs me that Gus suffers from schizophrenia and lives in a nearby nursing care facility. He apparently does have some history for cardiopulmonary disease in the past. The patient's niece informs me that on Saturday, about 5-6 days ago, the family had noted an infection involving his upper thoracic region. He was placed on oral antibiotics as a result of this infection. This morning apparently staff at the group home found him unresponsive in the bathroom after he had "fell off the toilet." Nursing staff was able to revive the patient at the group home and he was transferred to our facility for further care. The patient apparently coded while in the emergency room. After ACLS protocol was initiated the patient was able to be revived. At that time it was felt that the underlying etiology for his decompensated status was likely cardiac in nature. The patient was subsequently transferred to the [facility]. Verbally, I was informed that his "heart cath was normal." As nursing staff was rotating the patient to get him onto the gurney, they noted that there was this large infected wound involving the upper thoracic region. Consult was therefore put forth to me. PAST MEDICAL HISTORY, PAST SURGICAL HISTORY, MEDICATIONS, ALLERGIES, SOCIAL HISTORY, FAMILY HISTORY, REVIEW OF SYSTEMS Essentially unobtainable from the patient. Data that can be obtained will be placed in the chart by my nurse practitioner, Yaya Waller. PHYSICAL EXAMINATION Mr. Trent is a 62-year-old gentleman who is intubated. VITALS: Temperature 96, pulse 72, respirations 20 on vent. Last recorded blood pressure in the EMR was 78/49. Patient is on Levophed and dopamine and when I was in the ICU his blood pressure was about 115/75. The patient is on 90 % FiO2. HEENT: Face does appear somewhat edematous. His eyes were closed. I was therefore unable to evaluate his pupils. One can see a laceration involving the left forehead region. Apparently he sustained this small laceration when he "fell off the toilet." CHEST: Clear auscultation bilaterally. HEART: Regular rate and rhythm. ABDOMEN: Visualization of the abdomen reveals it to be fairly protuberant in nature, i.e., the patient has a component of obesity. There is no evidence for skin mottling or open wounds involving his chest or abdomen. EXTREMITIES: I did not see any evidence for mottling of the skin. One can see some varicosities involving the lower extremities. No open wounds are noted or evidence for marked erythema involving the lower extremities. BACK: Patient was logrolled carefully to his right side. One can see a large grossly infected wound with ecchymotic appearing skin overlying it. This large wound is about 15-20 cm in diameter. There is carissa purulence coming forth from the wound itself. Skin is discolored in nature as stated above. Findings are suggestive for necrotizing Staph tissue infection. LABORATORY/RADIOGRAPH EVALUATION The patient had a CBC is white count was markedly elevated at 23,000. Hemoglobin is 10.7. He does have a left shift with 17% bands. ABG was obtained and he is acidotic with a pH of 7.2, pCO2 of 69, pO2 of 81. CMP was obtained. Earlier today his potassium was 6.7. Last potassium was 5.0. Troponin level was normal at 0.52 initially. Troponin level obtained later was 0.430. Liver function tests were slightly elevated. Plasma lactate was elevated at 2.6. Procalcitonin level has been obtained and is pending. ASSESSMENT 62-year-old gentleman with associated medical comorbidities who presents with probable necrotizing fasciitis involving upper thoracic region. Patient with overwhelming sepsis. Prognosis guarded. PLAN I did have the niece contact the patient father who is his medical durable power of managing attorney. I was able to speak by phone with the patient's father. I informed the father that the patient is critically ill and that I believe his prognosis is quite guarded. I informed the patient's father that it was my intuition that the underlying cause of his demise may indeed be as a result of an overwhelming soft tissue infection/necrotizing fasciitis involving his upper thoracic region. I did discuss with the patient's durable power managing attorney options at this time. One option would be to be conservative in nature, given his associated medical comorbidities, and provide more comfort care. The other option would be to be more aggressive and proceed with surgical intervention, specifically excisional surgical debridement of the necrotic wound involving the upper thoracic region. The patient's father, who has durable power of managing attorney, was quite clear that he wanted "everything to be done." The patient' s father wished to proceed with surgical intervention. The phone was passed off to ICU nurses to obtain verbal consent. Will proceed this evening with excisional surgical debridement of necrotic wound. Hospitalist has also requested, if possible, placement of additional "lines" for venous access and arterial line. JAMES
--- NOTE | 2017-04-18 08:32 | CT Scan Report ---
Indication: possible lung injury PROCEDURE: CT chest wo con: Encounter: Initial Comparison: Chest x-ray from the same date Technique: Axial CT images were performed through the chest without intravenous contrast. Coronal and sagittal two-dimensional reformats. Automated Exposure Control and Iterative Reconstruction dose reducing techniques were utilized. Findings: No pneumothorax. Pulmonary edema with interlobular septal thickening. Moderate bilateral pleural effusions. Large areas of consolidation involving the entire right lower lobe and portions of the right middle, and right upper lobes. Significant consolidation in the left upper lobe lobe with a lesser degree of involvement in the lingula. Endotracheal tube is in place terminating 2.5 cm above the jocelynn. Nasogastric tube is in place extending into the body of the stomach. There is a large soft tissue wound in the left upper back with packing or dressing material overlying. No axillary or mediastinal adenopathy. Heart size is normal. No pericardial effusion. The upper abdomen shows vicarious excretion of contrast by the gallbladder with contrast material in the renal meds. Bone windows show fractures of the left first posterior rib and the second through sixth lateral ribs. There are also fractures of the right fourth through eighth lateral ribs. Right IJ line in place with the tip terminating in the mid SVC. Impression: 1. Severe pulmonary edema. 2. Diffuse bilateral airspace consolidation and pleural effusions could represent pneumonia, aspiration or diffuse alveolar damage. 3. Multiple bilateral rib fractures. 4. Large soft tissue wound in the left upper back. 5. Tubes and lines as above. There is a preliminary report by [facility]. .
--- NOTE | 2017-04-18 08:33 | XRay Report ---
Indication: post line placement PROCEDURE: XR chest 1V: Encounter: Initial Comparison: Chest CT from the same date Findings: Endotracheal tube in place with the tip projecting 2.5 cm mild chronic. Nasogastric tube extends below the diaphragm, tip is not visualized on this study. Right IJ line tip projects over the mid SVC. No visible pneumothorax. Severe bilateral consolidation with [id number] bilateral pleural effusions. Heart size is obscured. Pulmonary vascularity is enlarged with cephalization and is indistinct. Impression: 1. Tubes and lines as above. 2. Severe pulmonary edema with bilateral airspace consolidation and effusions. Findings could relate to pneumonia, aspiration or diffuse alveolar damage. .
--- NOTE | 2017-04-18 08:35 | XRay Report ---
Indication: ET tube placement PROCEDURE: XR chest 1V: Encounter: Initial Comparison: Chest x-ray and chest CT dated April 17, 2017 Findings: Endotracheal and nasogastric tubes are stable in position as is the right IJ line. Pulmonary findings are similar with slight improvement in aeration of the right midlung zone. No visible pneumothorax on this supine view. Heart size and mediastinal contours are grossly stable. Rib fractures are better seen on the chest CT. Impression: Stable positioning of the tubes and lines. .
[2017-04-18] MEDS: PANTOPRAZOLE 40 MG INJECTION IVP SCH (08:49)
--- NOTE | 2017-04-18 09:13 | Anesthesia Postoperative Note ---
- Date and Time Date: 04/18/17 Time: 09:00 - Status Patient Participated in Evaluation: Patient Participated in Person Vital Signs: Temperature 99 F 04/18/17 08:15 Pulse Rate 89 04/18/17 08:15 Respiratory Rate 23 04/18/17 08:15 Blood Pressure 104/53 04/18/17 07:00 Pulse Oximetry 91 04/18/17 08:15 Respiratory Function: Airway Patent (remains on ventilator.) Cardiovascular Function: Regular Pulse (remains on pressors) Mental Status: Comatose (unresponsive) Pain Intensity: 0 (unresponsive.) Hydration: IV Infusing Complications During Recover: None Apparent Post Anesthesia Care Notes: Neurological status remains unchanged. Family at bedside, questions invited and answered. - Follow-Up Instructions Instructions: Per Surgeon
[2017-04-18] MEDS ORDERED: CALCIUM GLUCONATE 4.65mEq/10ml INJECTION IV SCH (11:00)
[2017-04-18] MEDS ORDERED: SODIUM POLYSTYRENE SULFONATE 15 GM/60 ML BOTTLE PO ONE (11:01)
[2017-04-18] MEDS ORDERED: CALCIUM GLUCONATE 4.65 MEQ in NS 50 ML IV ONE (11:30)
[2017-04-18] MEDS: ALBUTEROL/IPRATROPIUM 2.5mg-0.5mg/3ml NEB AEROSOL SCH ×4 (11:45→23:30)
--- NOTE | 2017-04-18 14:38 | Cardiac Catheterization Report ---
DATE OF PROCEDURE 04/17/2017 PROCEDURE PERFORMED 1. Selective bilateral coronary angiography. 2. Bypass graft angiography. 3. Left heart catheterization. 4. Supravalvular aortography. INDICATION Mr. Trent is a 62-year-old male who presented with out of hospital cardiac arrest. Initial rhythm was PEA. After CPR he received epinephrine and achieved return of spontaneous circulation (ROSC). The patient was hypotensive in the emergency room. Electrocardiogram showed a right bundle branch block, no significant ST elevation, but due to profound hypotension and cardiac arrest patient was brought to cardiac catheterization lab to define coronary anatomy. PROCEDURE NARRATIVE Prior to arrival to the labor contract analyst the patient was intubated in the emergency room and patient was brought to cardiac catheterization laboratory, prepped and draped in the usual fashion. Consent couldn't be obtained due to the emergent nature of the procedure. No sedation was used due to hypotension during the procedure. Right femoral artery was then accessed using modified Seldinger technique and a 6-Niuean sheath was inserted in the right femoral artery without difficulty. A 6-Niuean JL4 diagnostic catheter was then used to selectively cannulate the left main coronary artery. Multiple orthogonal views were obtained. A JR4 diagnostic catheter was used to selectively cannulate the right coronary artery, multiple orthogonal views were obtained. The same JR4 catheter was then used to selectively cannulate the bypass graft of the circumflex artery. Multiple orthogonal views were obtained. JR4 catheter was then used to cannulate the left internal mammary artery and multiple orthogonal views were obtained. We then used a JL4.5 diagnostic catheter to cannulate the left circumflex and ramus intermedius artery and multiple orthogonal views were obtained. We then used a 6-Niuean pigtail catheter for supravalvular aortography which was performed in MOORE projection. Then the procedure catheter was removed over a J-shaped floppy wire. We then placed a 6-Niuean sheath in the right femoral vein using modified Seldinger technique. Both sheaths were sutured in place. SUMMARY OF FINDINGS LAD and left circumflex had separate origins. LAD has ostial stenosis--about 50 % stenosis noted. LAD then gives rise to a very large septal machine operator replanter which provides collaterals to the right coronary artery. LAD then gives off a medium- size diagonal branch which is free of significant disease. Mid LAD has only mild luminal irregularities. Distal LAD has mild luminal irregularities. LAD retrogradely fills the HDEZ on antegrade injections. Large ramus intermedius has a long lesion involving the ostium in the proximal segment, about 70-80% stenosis noted. This lesion also appears chronic. There is DONALD-3 flow in the vessel noted. No thrombus noted. Right coronary artery is a codominant vessel. There is a mid RCA lesion which appears chronic, about 80% stenosis noted to long segment of the vessel that's involved, but distal RCA receives collaterals from septal perforators. The RV marginal branch has another long region of about 60-70% stenosis noted. SVG to circumflex artery is widely patient. It appears to be anastomosed to a left PDA which backfills left posterolateral branch. HDEZ is widely patent. It is anastomosed to the distal LAD. Distal LAD has mild diffuse disease. Supravalvular aortography: showed only single patent aortic bypass graft going to the left circumflex artery. Left Heart Catheterization: Near-normal cardial filling pressure, LVEDP of 18 mHg. CONCLUSION Coronary artery disease with patent HDEZ to LAD and patent SVG to left PDA. Right coronary artery receives septal collaterals from LAD. Ramus intermedius has ostial proximal about 70-80% stenosis. Coronary anatomy appears chronic, no acute lesions noted. DONALD-3 flow noted in all vessel beds. RECOMMENDATIONS Suspect etiology of shock is not related to cardiac origin. Patient has an elevated WBC count and significant metabolic derangements. Will pursue further workup to define etiology of circulatory shock. JAMES
--- NOTE | 2017-04-18 15:45 | Progress Note ---
DATE: 04/18/17 FINDINGS Mr. Trent remains on the vent this morning. He will open his eyes when spoken to but is unable to follow any commands. I did perform a sternal rub upon the patient and unfortunately it did not appear that he had much response. CHEST: Clear to auscultation bilaterally. HEART: Regular rate and rhythm. Normal S1 and S2 without gallops, murmurs or clicks. BACK: Patient was placed in right lateral decubitus position. Dressing was removed from his back. There is no active bleeding. There is no further purulent material. It does not appear that there has been any progression of the necrotic material. There is still some necrotic subcutaneous tissues present within the wound bed but this is fairly minimal. There is some slight erythema within the periwound area. ASSESSMENT 62-year-old gentleman status post cardiopulmonary arrest, status post excisional surgical debridement of infected/necrotic wound involving the upper thoracic region of back. Overwhelming sepsis. Prognosis guarded. PLAN From a surgical standpoint his wound was repacked. The patient does have marked leukocytosis with a white count of 26,000 and ongoing left shift with 19 % bands. I do feel that his prognosis is quite guarded. Will defer ongoing treatment to hospitalist system. Will follow the patient from a wound standpoint. JAMES
--- NOTE | 2017-04-18 15:51 | Pulmonology Consult Note ---
History of Present Illness Consult date: 04/18/17 Chief complaint: cardiac arrest History of present illness: This is a 62-year-old male was brought to the ICU status post 2 code blue arrests with successful resuscitation. He was found on the bathroom floor of his NH room without a pulse. It was unknown how long he was down. He was resuscitated approximately 24 hours ago and has remained on mechanical ventilation since that time. He did undergo HC where he was found to have widely patent vessels. CT of the head was benign despite some minor left temporal trauma. Per the history, the patient is living in a fpc at the age of 62 because he is a poorly compliant schizophrenic who was continuing to smoke at home despite being on oxygen. His family fearing for the dangers chronically poor judgment had placed him in nursing care. He is not been a smoker for many months now unless he has been secretly acquiring them. He does use 2 to 3 L reportedly by nasal cannula in the fpc. Apparently he had been complaining of back pain and had an abscess that was ruptured 2 in spots and was treated with antibiotics for a few days prior. The patient has anoxic encephalopathy, severe. He is unsedated and unresponsive. He has severe respiratory failure with hypercapnia and hypoxemia related to acute lung injury, pulmonary edema and possible aspiration He has underlying COPD He has acute oliguric kidney failure Review of Systems ROS unobtainable: not obtainable [facility] Reported COPD with oxygen dependence, coronary artery disease with CABG, schizophrenia, medical noncompliance hazardous to health Surgical History: Coronary artery bypass graft - Social History Smoking status: Current every day smoker second hand exposure: Yes Substance use type: marijuana, inhalants Alcohol intake: former Housing: fpc Review of Systems ROS unobtainable: due to endotracheal tube, due to mental status [facility] Patient Stated Medical History Cardiac Arrhythmia Yes: Cardiac arrest. Post rescucitated x 2. Coronary Artery Disease Yes Hypertension Yes Other Cardiology Yes: patient on pressors, dopamine and norepi. Chronic Obstructive Pulmonary Yes: exacerbation Disease (COPD) Pneumonia Yes Diabetes Mellitus Type 1 Yes Other frequency Other Musculoskeletal Yes: history of schizophrenia. Lives in a fpc Depression Yes Paranoid Disorder Yes Schizophrenia Yes Substance Use Disorder Yes: marijuana Clinic Medical History Successful cardiopulmonary resuscitation (Acute Medical) Necrotizing fasciitis (Acute Medical) Septic shock due to Gram positive bacteria (Chronic Medical) Acute hyperkalemia (Acute Medical) Acute respiratory failure requiring reintubation (Acute Medical) Schizophrenia (Acute Medical) COPD exacerbation (Acute Medical) Cardiac arrest (Acute Medical) Surgical History: Coronary artery bypass graft - Social History Smoking status: Current every day smoker Medications Home Medications Medication Instructions Recorded Confirmed Type Famotidine 20 mg PO HS #0 11/19/14 04/17/17 History LORazepam [Ativan] 1 mg PO Q6H #0 11/19/14 04/17/17 History Lisinopril 5 mg PO HS #0 11/19/14 04/17/17 History Polyethylene Glycol 3350 [Miralax] 17 g PO BID #0 11/19/14 04/17/17 History Tiotropium [place] [Spiriva] 1 cap ORAL INH DAILY #0 11/19/14 04/17/17 History Thiamine HCl [Vitamin B-1] 100 mg PO DAILY #0 06/13/15 04/17/17 History Docusate Sodium [Colace] 200 mg PO BID #0 08/23/15 04/17/17 History Levothyroxine Sodium [Synthroid] 50 mcg PO ACB #0 08/23/15 04/17/17 History Carvedilol 3.125 mg PO BID #0 12/22/15 04/17/17 History Dabigatran Etexilate Mesylate 150 mg PO BID #0 12/22/15 04/17/17 History [Pradaxa] Hydrocodone/Acetaminophen [[place] 1 tab PO BID #0 12/22/15 04/17/17 History 7.5-325 Tablet] Vitamin B Complex 1 tab PO DAILY #0 12/22/15 04/17/17 History Atorvastatin Calcium 10 mg PO HS #0 09/29/16 04/17/17 History Furosemide 40 mg PO BID #0 09/29/16 04/17/17 History Hydrocodone/Acetaminophen 1 tab PO QID PRN #0 09/29/16 04/17/17 History [Hydrocodon-Acetaminoph 7.5-325] Ipratropium/Albuterol Sulfate 1 vial AEROSOL TID #0 09/29/16 04/17/17 History [Iprat-Albut 0.5-3(2.5) mg/3 ml] Paliperidone [Paliperidone ER] 1.5 mg PO DAILY #0 09/29/16 04/17/17 History Paliperidone [Paliperidone ER] 9 mg PO DAILY #0 09/29/16 04/17/17 History Buspirone [Buspar] 10 mg PO TID 04/17/17 04/17/17 History Ceftriaxone [Rocephin] 1 gm IM DAILY 04/17/17 04/17/17 History Ferrous Sulfate 650 mg PO DAILY 04/17/17 04/17/17 History Fluticasone/Salmeterol [Advair Hfa 2 puff INH BID 04/17/17 04/17/17 History 230-21 Mcg Inhaler] Gabapentin [Neurontin] 100 mg PO DAILY 04/17/17 04/17/17 History Gabapentin [Neurontin] 300 mg PO BID 04/17/17 04/17/17 History Insulin Aspart [Novolog Flexpen] 5 unit SQ PRN PRN 04/17/17 04/17/17 History Insulin Aspart [Novolog Flexpen] 35 unit SQ TIDWM 04/17/17 04/17/17 History Insulin Detemir [Levemir Flextouch] 45 unit SQ HS 04/17/17 04/17/17 History Nicotine Patch [Nicoderm] 7 mg TD DAILY 04/17/17 04/17/17 History Potassium Chloride 30 mg PO DAILY 04/17/17 04/17/17 History Ropinirole [Requip] 2 mg PO HS 04/17/17 04/17/17 History Sertraline [Zoloft] 150 mg PO DAILY 04/17/17 04/17/17 History buPROPion HCl [Bupropion HCl Sr] 150 mg PO BID 04/17/17 04/17/17 History Allergies Allergy/AdvReac Type Severity Reaction Status Date / Time No Known Allergies Allergy Unverified 04/17/17 15:23 Exam Vital signs: Temperature 100.0 F 04/18/17 14:00 Pulse Rate 93 04/18/17 14:00 Respiratory Rate 20 04/18/17 13:04 Blood Pressure 102/50 04/18/17 14:00 Pulse Oximetry 98 04/18/17 14:00 - Constitutional no acute distress - Routine HEENT Exam Head: Present: normocephalic - Routine Neck Exam Present: supple, full ROM - Routine Respiratory Exam Present: accessory muscle use, patient mechanically ventilated, decreased breath sounds - Routine Cardiovascular Exam Present: RRR - Routine Abdominal Exam Present: distended, firm - Routine Extremities Exam Present: edema - Routine Neurological Exam Present: sensory deficit, motor deficit, altered mental status Results - Laboratory Findings CBC and BMP: 04/18/17 06:04 04/18/17 06:04 ABG ABG pH 7.210 (7.350-7.450) L 04/18/17 10:43 ABG pCO2 55 MMHG (34-45) H 04/18/17 10:43 ABG pO2 65 MMHG (80-100) L 04/18/17 10:43 ABG O2 Saturation 87.0 % (95.0-98.0) L 04/18/17 10:43 PT/INR, D-dimer INR 1.79 (0.99-1.21) H 04/17/17 21:38 D-Dimer 6442 NG/ML (0-230) H 04/17/17 21:38 Abnormal lab findings: Abnormal Labs 04/17/17 04/17/17 04/17/17 17:47 18:46 18:46 WBC RBC Hgb Hct MCV MCHC RDW Std Deviation Neutrophils % (Manual) Band Neutrophils % Lymphocytes % (Manual) Neutrophils # (Manual) INR 1.84 H APTT Fibrinogen D-Dimer ABG pH 7.200 L* ABG pCO2 69 H* ABG pO2 ABG HCO3 27 H ABG Total CO2 29.1 H ABG O2 Saturation 93.0 L ABG Base Excess -2.4 L Potassium Carbon Dioxide 31 H D BUN 30.0 H Creatinine 1.6 H D Glucose Calculated Osmolality Calcium 7.4 L D AST 247 H ALT 220 H Alkaline Phosphatase 155 H D Troponin I 0.430 H D B-Natriuretic Peptide 4430 H Albumin 2.9 L Albumin/Globulin Ratio 0.8 L Triglycerides 163 H VLDL Cholesterol 32.6 H HDL Cholesterol 27 L Cholesterol/HDL Ratio 6.1 H Plasma Lactate 2.6 H Crossmatch (AHG) 04/17/17 04/17/17 04/17/17 19:47 21:38 21:38 WBC RBC Hgb Hct MCV MCHC RDW Std Deviation Neutrophils % (Manual) Band Neutrophils % Lymphocytes % (Manual) Neutrophils # (Manual) INR 1.79 H APTT 53.0 H Fibrinogen 650 H D-Dimer 6442 H ABG pH ABG pCO2 ABG pO2 ABG HCO3 ABG Total CO2 ABG O2 Saturation ABG Base Excess Potassium Carbon Dioxide BUN Creatinine Glucose Calculated Osmolality Calcium AST ALT Alkaline Phosphatase Troponin I B-Natriuretic Peptide Albumin Albumin/Globulin Ratio Triglycerides VLDL Cholesterol HDL Cholesterol Cholesterol/HDL Ratio Plasma Lactate Crossmatch (AHG) See Detail 04/18/17 04/18/17 04/18/17 00:44 06:04 06:04 WBC 26.0 H* RBC 3.41 L Hgb 11.2 L Hct 37.5 L MCV 110.0 H MCHC 29.9 L RDW Std Deviation 52.4 H Neutrophils % (Manual) 72.0 H Band Neutrophils % 19.0 H Lymphocytes % (Manual) 7.0 L Neutrophils # (Manual) 18.7 H INR APTT Fibrinogen D-Dimer ABG pH ABG pCO2 ABG pO2 ABG HCO3 ABG Total CO2 ABG O2 Saturation ABG Base Excess Potassium 6.7 H* D Carbon Dioxide BUN 37.0 H Creatinine 2.2 H D Glucose 255 H Calculated Osmolality 284 H Calcium 6.2 L D AST ALT Alkaline Phosphatase Troponin I 0.937 H D B-Natriuretic Peptide Albumin Albumin/Globulin Ratio Triglycerides VLDL Cholesterol HDL Cholesterol Cholesterol/HDL Ratio Plasma Lactate Crossmatch (AHG) 04/18/17 04/18/17 04/18/17 06:04 08:58 10:43 WBC RBC Hgb Hct MCV MCHC RDW Std Deviation Neutrophils % (Manual) Band Neutrophils % Lymphocytes % (Manual) Neutrophils # (Manual) INR APTT Fibrinogen D-Dimer ABG pH 7.170 L* 7.210 L ABG pCO2 57 H 55 H ABG pO2 59 L 65 L ABG HCO3 21 L ABG Total CO2 22.5 L ABG O2 Saturation 82.0 L 87.0 L ABG Base Excess -8.1 L -6.3 L Potassium Carbon Dioxide BUN Creatinine Glucose Calculated Osmolality Calcium AST ALT Alkaline Phosphatase Troponin I 0.998 H B-Natriuretic Peptide Albumin Albumin/Globulin Ratio Triglycerides VLDL Cholesterol HDL Cholesterol Cholesterol/HDL Ratio Plasma Lactate Crossmatch (AH) - Diagnostic Findings Chest x-ray: pending, report reviewed CT scan - chest: pending, report reviewed Assessment and Plan - Attestation Attestation Narrative: 04/18/17 16:03 I was at the bedside from 13:40 until 14:16. 36 minutes critical care time was spent on the case - Assessment and Plan (1) Acute respiratory failure with hypercapnia Current visit: Yes Status: Acute Continue intubation and mechanical ventilation. AC/VC Vt 500 rate 20, peep 8, FiO2 to keep sat >90% - currently 100% Neb bronchodilators q4H, suction prn. Monitor Oxygenation and can increase PEEP as needed. (2) Acute kidney failure Current visit: Yes Status: Acute Oliguria, due to sepsis, hypotension and cardiac arrest. maximize MAP with IVF and pressors. Prognosis guarded. Hyperkalemia can be treated with kayexalate, insulin, albuterol. (3) Septic shock due to Gram positive bacteria Current visit: Yes Status: Chronic (4) COPD exacerbation Current visit: Yes Status: Acute ongoing smoker, O2 dependent, now with acute lung injury, which complicates his vent management
[2017-04-18] MEDS ORDERED: ACETAMINOPHEN 160mg/5ml ORAL LIQUID NG PRN (17:51)
[2017-04-18] MEDS: BUDESONIDE INH.SOLN 0.5mg/2ml NEB AEROSOL SCH (18:56)
--- NOTE | 2017-04-18 19:50 | Progress Note ---
- Date 04/18/17 Subjective: Mr. Trent remains critically ill and unresponsive on a ventilator. Either I nor the family have seen any responsiveness since some reflex startling just after I assumed his care in the ICU last night. Family remains very pensive and his sister has sat mcintosh overnight. The father has returned this afternoon. Objective Vital signs: Temperature 101.1 F H 04/18/17 18:00 Pulse Rate 99 04/18/17 18:56 Respiratory Rate 20 04/18/17 18:56 Blood Pressure 98/60 04/18/17 18:30 Pulse Oximetry 99 04/18/17 18:56 Rhythm: Sinus Tachycardia Cardiac Ectopy: Occasional PVC's Height/Weight/BMI: Height 5 ft 5 in Weight 123.4 kg Body Mass Index 43.5 - Constitutional Present: severe distress - Routine HEENT Exam Head: Absent: normocephalic, atraumatic Eye: Absent: EOMI, PERRL, normal accommodation - Routine Respiratory Exam Present: patient mechanically ventilated, wheezes, crackles - Routine Cardiovascular Exam Present: S1, S2, murmur, tachycardia - Routine Abdominal Exam Present: soft, distended - Routine Extremities Exam Present: extremity cold to touch - Routine Neurological Exam Present: sensory deficit, altered mental status. Absent: alert, CN II-XII intact - Routine Psychiatric Exam Present: unable to assess - Additional findings Additional findings: Patient's pupils remain pinned and fixed with no corneal reflex. Patient displays no peripheral reflexes. Respiratory therapy has noted occasional gag reflex when deep suctioning. Results - Labs CBC & Chem 7: 04/18/17 06:04 04/18/17 06:04 Microbiology Results: Microbiology 04/17/17 18:46 Peripheral/Iv Start Blood Culture - Preliminary No Growth After 1 Day 04/17/17 18:46 Peripheral/Iv Start Blood Culture - Preliminary No Growth After 1 Day 04/17/17 20:30 Back Gram Stain - Final 04/17/17 20:30 Back Deep Wound Culture - Preliminary Culture Initiated - Results Pending - ABG Interpretation ABG results: 04/17/17 04/18/17 04/18/17 17:47 08:58 10:43 ABG pH 7.200 L* 7.170 L* 7.210 L ABG pCO2 69 H* 57 H 55 H ABG pO2 81 59 L 65 L ABG HCO3 27 H 21 L 22 ABG Total CO2 29.1 H 22.5 L 23.7 ABG O2 Saturation 93.0 L 82.0 L 87.0 L ABG Base Excess -2.4 L -8.1 L -6.3 L Assessment and Plan (1) Successful cardiopulmonary resuscitation Current visit: Yes Status: Acute (2) Septic shock due to Gram positive bacteria Current visit: Yes Status: Chronic (3) Acute hyperkalemia Current visit: Yes Status: Acute (4) Acute respiratory failure requiring reintubation Current visit: Yes Status: Acute (5) Schizophrenia Current visit: Yes Status: Acute (6) COPD exacerbation Current visit: Yes Status: Acute (7) Anuria Current visit: Yes Status: Acute (8) Bilateral pneumonia Current visit: Yes Status: Acute (9) Necrotizing fasciitis Current visit: Yes Status: Ruled-out Assessment and Plan: Appreciation to Dr. Allison for taking this patient back to surgery so promptly. His surgical efforts revealed that the patient fortunately was not suffering from necrotizing fasciitis. He did have a large abscess but this did not appear to be tunneling once surgical exploration was performed. CT is followed then revealed that the patient had bilateral lower lobe infiltrate with fairly significant density. She also has 7 fractured ribs is seen on CT exam. Patient is still septic with an organ damage but after aggressive fluid resuscitation we been able to discontinue the norepinephrine and maintain with a lower dose of dopamine. Patient remains and uric however with worsening potassium. Have given calcium gluconate, begun Kayexalate and patient is already receiving multiple albuterol breathing treatments. Discussion with family over the value of dialysis has been performed. Extensive discussion with the patient's family resumed. In conversation this morning and this afternoon I spent more than 30 minutes and discussion of the poor prognosis of Mr. Trent. The family especially the father was initially reluctant to move away from everything but total care but the efforts of Dr. Morris, they've agreed to not perform a 3rd code should this likely occur. Will continue to perform all treatment up to cardioverter resuscitation until the family has had more time to process this dire outcome Critical care time performed thus far 55 minutes. Patient remains gravely ill in the intensive care unit with a poor prognosis Sepsis Assessment - Evaluation Possible source: pulmonary, skin/soft tissue SIRS Criteria: acute mental status change, WBC < or equal to 4,000 Severe Sepsis: cardiac dysfunction, lactate > or equal to 2.0 mg/dl, urine output <0.5 mL/kg/hr [id number], INR > 1.5 Hospital Course Summary Disclaimer: The visit summary below is not to be considered part of the above Progress Note. Hospital Course: 04/17/17 The patient was rolled over revealing and 8 to 10 cm roughly circular risen and indurated purple plegmon with thick purulent drainage that was highly suspicious for necrotizing fasciitis. Septic shock protocol workup began: All fluids were increased to maximal rates available by IV dopamine and vasopressin were titrated up to preserve mean arterial pressure STAT orders to pharmacy for loading dose of vancomycin and meropenem at maximum dose 2 mg Q8 hours were ordered Dr. Allison was consulted for potential emergency surgery. An urgent CT of chest to determine the degree of tunneling that the expected fasciitis was ordered Dr. Allison arrived before the patient was transferred to CT and determined that surgical exploration took precedent over imaging. Patient displays multiorgan system failure with severe sepsis and shock. The elevated lactate of 2.7 is probably understated and more concerning is the elevated INR of 1.84 most likely due to secondary coagulopathy from impending DIC. The patient has a leukocytosis WBC 23 with 17% bands. We'll get D dimer and fibrinogen levels as well as INR PTT Pulmonary failure is likely secondary to sepsis as well as is the cardiac arrest. Patient requires pressers and will likely need antiarrhythmic's as well at some course during the intensive care unit stay. I appreciate Dr Mendoza's input on this. Patient's family arrived back in the intensive care unit and I discussed with the family that the patient was a very poor prognostic point. The father holds work that maintains power of attorney at law and at the time he stated that he "wants everything done" for his son. His family notes that he is already outlived 2 of his boys, and so he is determined to make every effort to keep his remaining son. Dr. Allison is taking the patient to emergency surgery at this time. I would not be adverse to him canceling the CT if he feels as though he has enough information regarding fasciitis after open exploration.
[2017-04-18] MEDS: INSULIN ASPART 100unit/ml INJECTION SQ PRN (21:15)
[2017-04-19] MEDS: SALINE FLUSH 10ml SYRINGE IV PRN ×2 (00:16→05:20)
[2017-04-19] MEDS: HEPARIN SUB-Q 5,000 UNITS/0.5 ML INJECTION SQ SCH ×3 (01:07→16:21)
[2017-04-19] MEDS: MEROPENEM 2 GM in NS 100 ML IV SCH ×2 (01:07→10:48)
[2017-04-19] MEDS: DOPamine PREMIX 400 MG/250 ML BAG IV SCH (02:52)
[2017-04-19] MEDS: ALBUTEROL/IPRATROPIUM 2.5mg-0.5mg/3ml NEB AEROSOL SCH ×5 (03:05→23:13)
[2017-04-19] MEDS: NS 1,000 ML IV SCH ×3 (04:23→20:18)
[2017-04-19] MEDS: INSULIN ASPART 100unit/ml INJECTION SQ PRN ×4 (06:15→20:35)
[2017-04-19] MEDS: BUDESONIDE INH.SOLN 0.5mg/2ml NEB AEROSOL SCH ×2 (07:30→18:54)
--- NOTE | 2017-04-19 08:23 | XRay Report ---
Indication: PNA and failure PROCEDURE: XR chest 1V: Encounter: Initial Comparison: April 18, 2017 Findings: Support devices are stable. Improving aeration of the right lung with an oval 3 cm lucency in the hilar area that could represent a developing region of cavitation. Small bilateral effusions. No pneumothorax. Cardiac silhouette remains enlarged. Mediastinal contours are grossly stable. Bilateral rib fractures. Impression: Improving pulmonary edema and better aeration of the right lung. However there is a possible focus of developing cavitation versus artifact from clearing consolidation in the right hilum. Continued radiographic follow-up is recommended. There is a preliminary report by virtual radiologic. .
[2017-04-19] MEDS: REFRESH CLASSIC Eye Drops 0.4ml EACH EYE PRN (08:53)
[2017-04-19] MEDS: PANTOPRAZOLE 40 MG INJECTION IVP SCH (08:54)
[2017-04-19] MEDS: LEVOFLOXACIN PB 750 MG/150 ML BAG IV SCH ×2 (09:03→10:47)
--- NOTE | 2017-04-19 09:13 | Pulmonology Progress Note ---
Subjective Principal diagnosis: code blue Interval history: Pt currently on ventilator, unresponsive to painful stimuli or suctioning. Family at beside aware of situation, no additional issues noted. Exam Vital signs: Temperature 100.2 F 04/19/17 08:00 Pulse Rate 98 04/19/17 08:00 Respiratory Rate 43 H 04/19/17 08:00 Blood Pressure 115/57 04/19/17 08:00 Pulse Oximetry 98 04/19/17 08:00 - Constitutional morbidly obese Comments: unresponsive - Routine HEENT Exam Head: Present: normocephalic Comments: pupils nonreactive - Routine Neck Exam Present: trachea midline - Routine Respiratory Exam Present: patient mechanically ventilated, rhonchi, wheezes - Routine Cardiovascular Exam Present: no murmur, tachycardia - Routine Abdominal Exam Present: firm Comments: hypoactive - Routine Extremities Exam Present: edema Comments: full ROM with passive movement, still unresponsive - Routine Skin Exam Present: dry, wounds - Routine Neurological Exam unresponsive, no response to painful stimuli or suctioning - Urinary Catheter Management Urethral Cath placed during this visit: yes Insertion date: 04/17/17 Insertion time: 18:05 Progress Note-A&P - Time Spent With Patient Total time spent is greater than 50% in coordination of care (as documented) at patient's floor/unit and/or counseling patient: 25 - 35 minutes - Attestation Attestation Narrative: Acute on chronic hypercapnic hypoxic respiratory failure 2/2 cardiac arrest Cardiac arrest likely 2/2 sepsis with unknown amount of down time Kidney failure with oliguria HyperKalemia COPD Back wound - on Vanco, merrem, levaquin Plan: Pt currently on vent Ac/Vc f 20, Vt 500, peep 5, 80%, sats 90-92%, CXR with improving bilateral congestion, still noted LLL and RML consolidation, on broad spectrum abx for back wound. On pulmicort BID and a/a q4hr, stil with some wheezing noted. WBC improved, bands improved, CR/BUN and liver enzymes worsening. Still no change in Neuro status is unresponsive to painful stimuli and suctioning. KCL improved but still elevated, likely will continue to increase secondary his kidney failure, cont to treat as needed with kayexalate prn. Still on dopamine but weaning off as SBP 130's. Will check ABG for worsening acidosis. Pt poor prognosis and likely to not recover neurologically and would agree with comfort care.
--- NOTE | 2017-04-19 09:42 | Operative Note ---
DATE OF SERVICE 04/17/2017 SURGEON Afshin Allison MD WINDOWS APPLICATION DEVELOPER Yaya Waller APRN PREOPERATIVE DIAGNOSIS Sepsis most likely secondary to necrotizing soft tissue infection involving upper thoracic involving upper thoracic region of back. POSTOPERATIVE DIAGNOSIS Sepsis most likely secondary to necrotizing soft tissue infection involving upper thoracic involving upper thoracic region of back. PROCEDURE Exploration of infected wound involving upper thoracic region of back with excisional surgical debridement of necrotic skin, subcutaneous tissues and a portion of fascia. Wound measuring 15 cm x 10 cm. Insertion of right internal jugular triple-lumen catheter. ANESTHESIA General endotracheal. EBL/FLUIDS Please see chart. BRIEF HISTORY/INDICATIONS Mr. Trent is a 62-year-old gentleman who was found unresponsive earlier today at his senior living facility. Patient was brought in to [facility] where in the emergency room he coded. After ACLS protocol was initiated and the patient was resuscitated he was subsequently taken to the heart color laboratory technician. It was felt that his acute demise was likely cardiac in nature. He did undergo heart catheterization that did not reveal any abnormalities. Upon rolling the patient from the cath table to the [facility] staff noted a large and grossly infected wound involving his back. Consult was then put forth to myself. Upon examination the patient was found to have a marked area of erythema with associated necrotic skin involving the upper thoracic region. There was carissa purulence coming forth from this wound. As a result of the above indications it was recommended that he undergo excisional surgical debridement of this area of concern to rule in or rule out the presence of necrotizing fasciitis. For completeness please refer to notes included in the patient's chart. PROCEDURE After informed consent was obtained the patient was brought to the operative suite and placed in left lateral decubitus position. The area of concern involving the upper thoracic region of his back was then prepped and draped in sterile fashion. Formal time-out was then completed. Next, an incision that was about 15 cm in length and about 10 cm in width was made overlying the area of carissa necrosis, erythema and necrotic skin upon his back. Dissection was carried down to the deep subcuticular tissues. A large copious amount of carissa purulent material and sebaceous material was encountered. This material was debrided sharply with knife and cautery. All nonviable skin, subcutaneous tissues as well as a portion of underlying fascia was debrided sharply until normal tissue was present and bleeding began to occur. There was carissa necrosis of the tissue involving the wound consistent with that of a necrotizing soft tissue infection. I did not see, however, evidence to suggest an obvious process of necrotizing fasciitis. Along the edge of the wound there was not separation of the subcutaneous tissues from the underlying fascia. The infection itself did not track beyond the visible wound that was noted on the surface. Once all nonviable tissue had been excised, hemostasis was attempted with electrocautery. The patient was "oozing" as a result of the fact that he was on antiplatelet therapy/Pradaxa as well as secondary to the acute inflammatory changes. The wound was packed firmly with NuGauze moistened in normal saline. Sterile dressings were then applied. The patient was then logrolled to his back. Right lateral neck was then prepped and draped in sterile fashion. A 22-gauge needle was then introduced at the anatomic location of the internal jugular vein with aspiration. The patient was unstable and staff had not obtained a sterile sleeve for the sonogram. Therefore, I elected to go ahead and proceed without sonographic guidance. On the second pass, utilizing the 22-gauge needle with aspiration, a venous flush was obtained. A Cook needle was then introduced in a similar fashion and once again a venous flush was obtained. Guidewire was advanced through the Cook needle and the Cook needle was removed. A small 4-5 mm incision was then made adjacent to the exit site of the guidewire. Dilator was advanced over the guidewire and removed. A flushed triple-lumen catheter was advanced over the guidewire and the guidewire was then removed. Each port was then aspirated and flushed with heparinized saline. This was performed without incident. Catheter was then secured to the right lateral neck with 2-0 silk. The patient tolerated both of these portions of the procedure. He was hemodynamically stable during the course of the procedure but had fulminant pulmonary edema with marked difficulty for ventilation. The patient will be transferred back to the ICU in critical condition. JAMES
--- NOTE | 2017-04-19 10:25 | Pharmacy Consult-Antibiotics ---
Pharmacy Consult-Vancomycin - Laboratory Information WBC 16.3 T/MM3 (4.5-11.0) H 04/19/17 04:49 BUN 60.0 MG/DL (9-20) H* 04/19/17 04:49 Creatinine 4.0 MG/DL (0.8-1.5) H D 04/19/17 04:49 Procalcitonin 1.53 NG/ML 04/17/17 18:46 62yo M critically ill on ventilator. Post resuscitation x 2. Septic shock, resp. failure, schizophrenia, COPD exacerbation, Bilateral pneumonia, and necrotizing fasciitis. Renal fx declining. - 04/17 SCr = 1.4 - 04/18 SCr = 2.2 - 04/19 SCr = 4.0 Placed VANCOMYCIN order on HOLD until level can be evaluated. Ordered Vancomycin level for tomorrow am (04/20 - 529) and SCr. Will determine regimen then. Thank you
--- NOTE | 2017-04-19 11:30 | Pharmacy Consult- Renal Dosing ---
Pharamcy Consul-Renal Dosing - Laboratory Information 04/17/17 04/18/17 04/18/17 18:46 06:04 22:38 BUN 30.0 H 37.0 H 57.0 H* D Creatinine 1.6 H D 2.2 H D 3.4 H D 04/19/17 04:49 BUN 60.0 H* Creatinine 4.0 H D Renal fx significantly worsening: Today's calculated CrCl = 23.85 ml/min 1. Continue Levofloxacin at 750mg IV q 48 hours 2. Change Meropenem to 1gm IV q12hrs. 3. Vancomycin already holding and will adjust based on levels tomorrow. Thank you
--- NOTE | 2017-04-19 11:46 | General Surgery Progress Note ---
Subjective Patient reports: other (He is comatose, on the ventilator. He did have slight movement of shoulders with sternal rub.) - Vital Signs Last Vital Signs Temp 100.2 F 04/19/17 08:00 Pulse 97 04/19/17 11:23 Resp 20 04/19/17 11:23 BP 112/58 04/19/17 11:00 Pulse Ox 95 04/19/17 11:30 - Laboratory Result Diagrams: 04/19/17 04:49 04/19/17 04:49 - Microbiogy Microbiology 04/18/17 01:01 Urine Streptococcus pneumoniae Antigen (M - Final 04/17/17 20:30 Back Gram Stain - Final 04/17/17 20:30 Back Deep Wound Culture - Preliminary No Growth After 1 Day 04/17/17 18:46 Peripheral/Iv Start Blood Culture - Preliminary No Growth After 1 Day 04/17/17 18:46 Peripheral/Iv Start Blood Culture - Preliminary No Growth After 1 Day - Abnormal Exam Respiratory: other (on ventilator) Abdominal: obese, firm, distended Wound/Stoma/Drain Assessment - Wound Management Posterior Medial Back Wound Type: Surgical Incision (abscess) Wound Present on Admission?: Yes (large infected sebaceous cyst) Wound Length: 10 Wound Width: 15 Wound Depth: 5 Tunneling: No Wound Bed Appearance: Beefy Red (base), Slough (about 10%) Wound Surrounding Tissue Appearance: Marrero, Edematous Wound Drainage Description: Serosanguineous Wound Packing Type: Gauze Roll (NS moist) Primary Dressing: Absorbant Pad Assessment and Plan (1) Infected sebaceous cyst of skin Current Visit: Yes Status: Acute Plan: Wound bed is mostly clean, just a little slough, perhaps 10% or less scattered in the wound. Dressing removed was just blood tinged. WBC better today, but labs regarding medical condition indicate he is quite ill. Will continue daily dressing changes. Medical management by Hospitalist team. Hospital Course Summary Disclaimer: The visit summary below is not to be considered part of the above Progress Note. Hospital Course: 04/17/17 The patient was rolled over revealing and 8 to 10 cm roughly circular risen and indurated purple plegmon with thick purulent drainage that was highly suspicious for necrotizing fasciitis. Septic shock protocol workup began: All fluids were increased to maximal rates available by IV dopamine and vasopressin were titrated up to preserve mean arterial pressure STAT orders to pharmacy for loading dose of vancomycin and meropenem at maximum dose 2 mg Q8 hours were ordered Dr. Allison was consulted for potential emergency surgery. An urgent CT of chest to determine the degree of tunneling that the expected fasciitis was ordered Dr. Allison arrived before the patient was transferred to CT and determined that surgical exploration took precedent over imaging. Patient displays multiorgan system failure with severe sepsis and shock. The elevated lactate of 2.7 is probably understated and more concerning is the elevated INR of 1.84 most likely due to secondary coagulopathy from impending DIC. The patient has a leukocytosis WBC 23 with 17% bands. We'll get D dimer and fibrinogen levels as well as INR PTT Pulmonary failure is likely secondary to sepsis as well as is the cardiac arrest. Patient requires pressers and will likely need antiarrhythmic's as well at some course during the intensive care unit stay. I appreciate Dr Mendoza's input on this. Patient's family arrived back in the intensive care unit and I discussed with the family that the patient was a very poor prognostic point. The father holds work that maintains power of mechanical press operator and at the time he stated that he "wants everything done" for his son. His family notes that he is already outlived 2 of his boys, and so he is determined to make every effort to keep his remaining son. Dr. Allison is taking the patient to emergency surgery at this time. I would not be adverse to him canceling the CT if he feels as though he has enough information regarding fasciitis after open exploration.
[2017-04-19] MEDS: NS IV SCH (12:23)
[2017-04-19] MEDS: DOPAMINE IV SCH (12:23)
--- NOTE | 2017-04-19 14:13 | Progress Note ---
DATE: 04/19/17 FINDINGS Mr. Trent unfortunately continues to be apparently unresponsive. The patient did not open eyes today to voice. VITALS: T-max 101.1. Blood pressure 121/61. SAO2 98% on 80% FiO2. Urinary output has been very minimal. CHEST: Clear to auscultation bilaterally. HEART: Regular rate and rhythm. Normal S1 and S2 without gallops, murmurs or clicks. BACK: I did not logroll the patient to evaluate his wound today. Earlier today my nurse practitioner had removed the packing and evaluated the wound. The wound is reported to continue to show improvement with no further progression of necrosis. LABORATORY/RADIOGRAPHIC EVALUATION The patient's white count is on a downward trend to 16.3. Hemoglobin is 9.2. BUN and creatinine continue to rise as one would expect given his oliguria. ASSESSMENT 62-year-old gentleman status post cardiopulmonary arrest, status post heart catheterization, status post excisional surgical debridement of necrotic wound involving upper thoracic region of back. Patient's prognosis is quite guarded. PLAN Will continue to follow along from a wound standpoint. It is my intuition that the patient will likely succumb to this illness. [facility]ALTH[facility]ARE SYSTEMLeti
--- NOTE | 2017-04-19 19:43 | Progress Note ---
- Date 04/19/17 Subjective: Mr. Trent continues to be unresponsive despite no sedation since his heart catheterization. Family notes no responsiveness and respiratory therapy notes that he is now lacking a gag reflex on deep suctioning. The family including the father is DPOA has voiced their coming to terms with the patient's terminal condition but there is one outlying adult son of the patient who may yet be coming to the hospital Objective Vital signs: Temperature 100.4 F 04/19/17 15:15 Pulse Rate 100 04/19/17 18:54 Respiratory Rate 22 04/19/17 18:54 Blood Pressure 123/60 04/19/17 18:00 Pulse Oximetry 98 04/19/17 18:54 Rhythm: Sinus Tachycardia Cardiac Ectopy: Occasional PVC's Height/Weight/BMI: Height 5 ft 5 in Weight 127.9 kg Body Mass Index 43.5 - Constitutional Present: severe distress, obese, obtunded - Routine HEENT Exam Head: Present: normocephalic, atraumatic Eye: Absent: EOMI, PERRL, normal accommodation ENT: Present: mucous membranes moist - Routine Respiratory Exam Present: patient mechanically ventilated, wheezes, crackles - Routine Cardiovascular Exam Present: RRR, S1, S2, tachycardia - Routine Abdominal Exam Present: distended, firm. Absent: tenderness - Routine Extremities Exam Present: extremity cold to touch - Routine Skin Exam Present: lesions - Routine Neurological Exam Present: sensory deficit, motor deficit, altered mental status. Absent: alert - Routine Psychiatric Exam Present: unable to assess Results - Labs CBC & Chem 7: 04/19/17 04:49 04/19/17 04:49 Microbiology Results: Microbiology 04/17/17 18:46 Peripheral/Iv Start Blood Culture - Preliminary No Growth After 2 Days 04/17/17 18:46 Peripheral/Iv Start Blood Culture - Preliminary No Growth After 2 Days 04/18/17 01:01 Urine Streptococcus pneumoniae Antigen (M - Final 04/17/17 20:30 Back Gram Stain - Final 04/17/17 20:30 Back Deep Wound Culture - Preliminary No Growth After 1 Day - ABG Interpretation ABG results: 04/18/17 04/18/17 04/19/17 08:58 10:43 10:45 ABG pH 7.170 L* 7.210 L 7.260 L ABG pCO2 57 H 55 H 47 H ABG pO2 59 L 65 L 88 ABG HCO3 21 L 22 21 L ABG Total CO2 22.5 L 23.7 22.5 L ABG O2 Saturation 82.0 L 87.0 L 95.0 ABG Base Excess -8.1 L -6.3 L -6.0 L Assessment and Plan (1) Successful cardiopulmonary resuscitation Current visit: Yes Status: Acute (2) Septic shock due to Gram positive bacteria Current visit: Yes Status: Chronic (3) Acute hyperkalemia Current visit: Yes Status: Acute (4) Acute respiratory failure requiring reintubation Current visit: Yes Status: Acute (5) Schizophrenia Current visit: Yes Status: Acute (6) COPD exacerbation Current visit: Yes Status: Acute (7) Anuria Current visit: Yes Status: Acute (8) Bilateral pneumonia Current visit: Yes Status: Acute (9) Necrotizing fasciitis Current visit: Yes Status: Ruled-out (10) Coma scale, best motor response, none, 24 hours or more after hospital admission Current visit: Yes Status: Acute Assessment and Plan: Coma: Patient remains neurologically unresponsive: no reflexes no corneal reflex no gag response. I've conveyed to the family that this appears to be functional brain . Father and siblings. Grasp this better today than they did on arrival. They appear to be willing to withdraw care tomorrow based upon whether the last son of the patient determines to come in. Septic shock: norepinephrine is an dopamine is being tapered down. Diabetics continue to run. Patient has had adequate fluid resuscitation Acute pulmonary failure with bilateral basil pneumonia. Patient is on meropenem and vancomycin. Currently ventilated at this time. Acute kidney failure with anuria: Patient output is occasionally 5 ML per hour but often nothing for several hours with declining BUN and creatinine. However with the current declining condition the potassium has improved somewhat. Hyperkalemia: continue Kayexalate and normal saline without potassium. No dialysis required with impending withdrawal of care Abscess paraspinal: Dr. Allison his following this with directions on wound care 7 ribs fractured secondary to 2 episodes of cardiopulmonary resuscitation. COPD with oxygen dependence at 2 to 3 L baseline Paranoid schizophrenia baseline 45 minutes critical care without procedures performed. Ephraim continues to deteriorate. Anticipate withdrawal care tomorrow Sepsis Assessment - Evaluation Possible source: pulmonary, skin/soft tissue Hospital Course Summary Disclaimer: The visit summary below is not to be considered part of the above Progress Note. Hospital Course: 04/18/[address] Allison for taking this patient back to surgery so promptly. His surgical efforts revealed that the patient fortunately was not suffering from necrotizing fasciitis. He did have a large abscess but this did not appear to be tunneling once surgical exploration was performed. CT is followed then revealed that the patient had bilateral lower lobe infiltrate with fairly significant density. She also has 7 fractured ribs is seen on CT exam. Patient is still septic with an organ damage but after aggressive fluid resuscitation we been able to discontinue the norepinephrine and maintain with a lower dose of dopamine. Patient remains and uric however with worsening potassium. Have given calcium gluconate, begun Kayexalate and patient is already receiving multiple albuterol breathing treatments. Discussion with family over the value of dialysis has been performed. Extensive discussion with the patient's family resumed. In conversation this morning and this afternoon I spent more than 30 minutes and discussion of the poor prognosis of Mr. Trent. The family especially the father was initially reluctant to move away from everything but total care but the efforts of Dr. Morris, they've agreed to not perform a 3rd code should this likely occur. Will continue to perform all treatment up to cardioverter resuscitation until the family has had more time to process this dire outcome Critical care time performed thus far 55 minutes. Patient remains gravely ill in the intensive care unit with a poor prognosis 04/17/17 The patient was rolled over revealing and 8 to 10 cm roughly circular risen and indurated purple plegmon with thick purulent drainage that was highly suspicious for necrotizing fasciitis. Septic shock protocol workup began: All fluids were increased to maximal rates available by IV dopamine and vasopressin were titrated up to preserve mean arterial pressure STAT orders to pharmacy for loading dose of vancomycin and meropenem at maximum dose 2 mg Q8 hours were ordered Dr. Allison was consulted for potential emergency surgery. An urgent CT of chest to determine the degree of tunneling that the expected fasciitis was ordered Dr. Allison arrived before the patient was transferred to CT and determined that surgical exploration took precedent over imaging. Patient displays multiorgan system failure with severe sepsis and shock. The elevated lactate of 2.7 is probably understated and more concerning is the elevated INR of 1.84 most likely due to secondary coagulopathy from impending DIC. The patient has a leukocytosis WBC 23 with 17% bands. We'll get D dimer and fibrinogen levels as well as INR PTT Pulmonary failure is likely secondary to sepsis as well as is the cardiac arrest. Patient requires pressers and will likely need antiarrhythmic's as well at some course during the intensive care unit stay. I appreciate Dr Mendoza's input on this. Patient's family arrived back in the intensive care unit and I discussed with the family that the patient was a very poor prognostic point. The father holds work that maintains power of disability attorney and at the time he stated that he "wants everything done" for his son. His family notes that he is already outlived 2 of his boys, and so he is determined to make every effort to keep his remaining son. Dr. Allison is taking the patient to emergency surgery at this time. I would not be adverse to him canceling the CT if he feels as though he has enough information regarding fasciitis after open exploration.
[2017-04-19] MEDS ORDERED: MEROPENEM 2 GM in NS 100 ML IV SCH (20:00)
[2017-04-19] MEDS: MEROPENEM 1 GM in NS 100 ML IV SCH (20:27)
[2017-04-20] MEDS: HEPARIN SUB-Q 5,000 UNITS/0.5 ML INJECTION SQ SCH ×2 (02:07→08:13)
[2017-04-20] MEDS: ALBUTEROL/IPRATROPIUM 2.5mg-0.5mg/3ml NEB AEROSOL SCH ×2 (02:49→06:52)
[2017-04-20] MEDS: INSULIN ASPART 100unit/ml INJECTION SQ PRN (05:53)
[2017-04-20] MEDS: BUDESONIDE INH.SOLN 0.5mg/2ml NEB AEROSOL SCH (06:52)
[2017-04-20] MEDS: NS 1,000 ML IV SCH ×2 (07:16→11:39)
[2017-04-20] MEDS: PANTOPRAZOLE 40 MG INJECTION IVP SCH (08:13)
[2017-04-20] MEDS: MEROPENEM 1 GM in NS 100 ML IV SCH (08:15)
[2017-04-20] MEDS: SALINE FLUSH 10ml SYRINGE IV PRN (08:15)
--- NOTE | 2017-04-20 10:24 | Progress Note ---
- Date 04/20/17 Subjective: Brief history: The 62-year-old man was brought to the ICU status post code blue times 2 with successful resuscitation. The first one was [place] the [place] and down time is unknown. He was brought to the ED where he coded again. He was intubated. 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 CT of the head was benign despite some minor left temporal trauma. He arrived in the CCU unresponsive with pinned and fixed pupils, on dopamine and vasopressin. He was turned and found to have a abscess on his back with drainage. He had been on po antibiotics for a few days for this. Surgery was consulted and pt taken on 04/17/2017 for exploration of infected wound involving upper thoracic region of back with excisional surgical debridement of necrotic skin, subcutaneous tissues and a portion of fascia. Wound measuring 15 cm x 10 cm. HC report: Patent HDEZ to LAD and patent SVG to left PDA. Right coronary artery receives septal collaterals from LAD. Ramus intermedius has ostial proximal about 70-80% stenosis. Coronary anatomy appears chronic, no acute lesions noted. DONALD-3 flow noted in all vessel beds. Historically the patient is [facility] a [facility] at the age of 62 because he is a poorly compliant schizophrenic who was continuing to smoke at home despite being on oxygen. His family fearing for the dangers chronically poor judgment had placed him in nursing care. He is not been a smoker for many months now unless he has been secretly acquiring them. He does use 2 to 3 L reportedly by nasal cannula in the [facility]. Today, he continues to be unresponsive off sedation. He is intubated. Family is present and is planning on withdrawing care today. Objective Vital signs: Temperature 101.8 F H 04/20/17 10:00 Pulse Rate 98 04/20/17 10:00 Respiratory Rate 14 04/20/17 10:00 Blood Pressure 120/56 04/20/17 10:00 Pulse Oximetry 100 04/20/17 10:00 Rhythm: Sinus Tachycardia Cardiac Ectopy: Occasional PVC's Height/Weight/BMI: Height 1.65 m Weight 130.2 kg Body Mass Index 43.5 Comments: Gen: Intubated. Not on sedation. No response to painful stimuli. Appears to have agonal breathing on the vent. NGT in place. Skin: warm and dry HEENT: NC/ AT Pupils are fixed and pinpoint. No corneal reflex. Neck: No JVD Lungs: wheezes bilaterally, coarse BS, crackles CV: Regular. soft murmur. Abd: distended, taught. No bowel sounds. MS: Generalized edema, 3+. Neuro: unresponsive Results - Labs CBC & Chem 7: 04/19/17 04:49 04/19/17 04:49 Microbiology Results: Microbiology 04/17/17 20:30 Back Gram Stain - Final 04/17/17 20:30 Back Deep Wound Culture - Final Corynebacterium species 04/17/17 18:46 Peripheral/Iv Start Blood Culture - Preliminary No Growth After 2 Days 04/17/17 18:46 Peripheral/Iv Start Blood Culture - Preliminary No Growth After 2 Days 04/18/17 01:01 Urine Streptococcus pneumoniae Antigen (M - Final - ABG Interpretation ABG results: 04/18/17 04/19/17 10:43 10:45 ABG pH 7.210 L 7.260 L ABG pCO2 55 H 47 H ABG pO2 65 L 88 ABG HCO3 22 21 L ABG Total CO2 23.7 22.5 L ABG O2 Saturation 87.0 L 95.0 ABG Base Excess -6.3 L -6.0 L Assessment and Plan (1) Successful cardiopulmonary resuscitation Current visit: Yes Status: Acute (2) Necrotizing fasciitis Current visit: Yes Status: Ruled-out (3) Septic shock due to Gram positive bacteria Current visit: Yes Status: Chronic (4) Acute hyperkalemia Current visit: Yes Status: Acute (5) Acute respiratory failure requiring reintubation Current visit: Yes Status: Acute (6) Schizophrenia Current visit: Yes Status: Chronic (7) COPD exacerbation Current visit: Yes Status: Chronic (8) Anuria Current visit: Yes Status: Acute (9) Bilateral pneumonia Current visit: Yes Status: Acute (10) Coma scale, best motor response, none, 24 hours or more after hospital admission Current visit: Yes Status: Acute Assessment and Plan: 1. Severe anoxic encephalopathy He is unsedated and unresponsive. - Pt remains neurologically unresponsive, no corneal reflex no gag response. - Family in room. Request to withdraw care at 1400 if he has not made any neurological improvement by then. - He has been made a DNR. 2. Septic shock, continues to be febrile - On dopamine at 2mcg at present - BP 80-90/40s 3. Severe respiratory failure with hypercapnia and hypoxemia - related to acute lung injury, pulmonary edema and possible aspiration PNA - Strep Pneumo urine positive - On Levaquin - Dr. Ferreira following 4. ARF with oliguria - UO 80ml so far today since [place] 5. Back abscess - S/P I&D - Corynebacterium scant amount - On meropenem and vanco 6. Rib fractures - S/P CPR 7. COPD - Oxygen dependent - Ventilated - Dr. Ferreira following 8. Paranoid Schizophrenia baseline. 10. Hyperkalemia - Improved but still elevated 11. DM - Reasonable BS 12. H/O HTN - Home meds on hold 13. Hypothyroid - TSH okay - Supplements on hold 14. Prophylaxis - SQ heparin - Protonix IV Family requests to wait until 1400 before withdrawing care. He is a DNR. Will continue to treat until then. Family in room, ready to withdraw care. Pt extubated just after 1400. He was pronounced at 1415. Hospital Course Summary Disclaimer: The visit summary below is not to be considered part of the above Progress Note. Hospital Course: 04/18/[address] Allison for taking this patient back to surgery so promptly. His surgical efforts revealed that the patient fortunately was not suffering from necrotizing fasciitis. He did have a large abscess but this did not appear to be tunneling once surgical exploration was performed. CT is followed then revealed that the patient had bilateral lower lobe infiltrate with fairly significant density. She also has 7 fractured ribs is seen on CT exam. Patient is still septic with an organ damage but after aggressive fluid resuscitation we been able to discontinue the norepinephrine and maintain with a lower dose of dopamine. Patient remains and uric however with worsening potassium. Have given calcium gluconate, begun Kayexalate and patient is already receiving multiple albuterol breathing treatments. Discussion with family over the value of dialysis has been performed. Extensive discussion with the patient's family resumed. In conversation this morning and this afternoon I spent more than 30 minutes and discussion of the poor prognosis of Mr. Trent. The family especially the father was initially reluctant to move away from everything but total care but the efforts of Dr. Morris, they've agreed to not perform a 3rd code should this likely occur. Will continue to perform all treatment up to cardioverter resuscitation until the family has had more time to process this dire outcome Critical care time performed thus far 55 minutes. Patient remains gravely ill in the intensive care unit with a poor prognosis 04/17/17 The patient was rolled over revealing and 8 to 10 cm roughly circular risen and indurated purple plegmon with thick purulent drainage that was highly suspicious for necrotizing fasciitis. Septic shock protocol workup began: All fluids were increased to maximal rates available by IV dopamine and vasopressin were titrated up to preserve mean arterial pressure STAT orders to pharmacy for loading dose of vancomycin and meropenem at maximum dose 2 mg Q8 hours were ordered Dr. Allison was consulted for potential emergency surgery. An urgent CT of chest to determine the degree of tunneling that the expected fasciitis was ordered Dr. Allison arrived before the patient was transferred to CT and determined that surgical exploration took precedent over imaging. Patient displays multiorgan system failure with severe sepsis and shock. The elevated lactate of 2.7 is probably understated and more concerning is the elevated INR of 1.84 most likely due to secondary coagulopathy from impending DIC. The patient has a leukocytosis WBC 23 with 17% bands. We'll get D dimer and fibrinogen levels as well as INR PTT Pulmonary failure is likely secondary to sepsis as well as is the cardiac arrest. Patient requires pressers and will likely need antiarrhythmic's as well at some course during the intensive care unit stay. I appreciate Dr Mendoza's input on this. Patient's family arrived back in the intensive care unit and I discussed with the family that the patient was a very poor prognostic point. The father holds work that maintains power of joy loader and at the time he stated that he "wants everything done" for his son. His family notes that he is already outlived 2 of his boys, and so he is determined to make every effort to keep his remaining son. Dr. Allison is taking the patient to emergency surgery at this time. I would not be adverse to him canceling the CT if he feels as though he has enough information regarding fasciitis after open exploration.
[2017-04-20] MEDS ORDERED: ACETAMINOPHEN 650 MG SUPPOSITORY PR ONE (10:50)
--- NOTE | 2017-04-20 11:24 | Pharmacy Consult-Antibiotics ---
Pharmacy Consult-Vancomycin - Laboratory Information WBC 16.3 T/MM3 (4.5-11.0) H 04/19/17 04:49 BUN 60.0 MG/DL (9-20) H* 04/19/17 04:49 Creatinine 4.0 MG/DL (0.8-1.5) H D 04/19/17 04:49 Procalcitonin 1.53 NG/ML 04/17/17 18:46 - Consult Information 62yo M critically ill and has been on a ventilator. Post resuscitation x 2. Septic shock, resp. failure, schizophrenia, COPD exacerbation, Bilateral pneumonia, and necrotizing fasciitis. Renal fx declining. - 04/17 SCr = 1.4 - 04/18 SCr = 2.2 - 04/19 SCr = 4.0 - 04/20 SCr = None Drawn The Vancomycin trough came back = 38.75 at 3:30 today (04/20). Checking the pharmacokinetics, I am changing the Vancomycin to 1,250 mg iv every 48 hours. The Pharmacy will continue to monitor the renal function and the Vancomycin troughs and will adjust the Vancomycin accordingly. Thank you for the Pharmacy Vancomycin Pharmacokinetics Consult, [facility]. Thank you
[2017-04-20] MEDS: DOPAMINE IV SCH ×2 (11:37→14:26)
[2017-04-20] MEDS: NS IV SCH ×2 (11:37→14:26)
--- NOTE | 2017-04-20 12:49 | Progress Note ---
DATE OF SERVICE 04/20/2017 FINDINGS Mr. Trent remains intubated this morning. He is unresponsive to verbal stimuli. EXAM VITAL SIGNS: T-max 102.0, pulse 95, blood pressure 120/56, SAO2 100% on 8% FIO2. CHEST: Clear to auscultation bilaterally. HEART: Regular rate and rhythm. Normal S1 and S2 without gallops, murmurs or clicks. NEUROLOGIC: The patient did not respond to verbal stimuli and was not moving any extremities. LABORATORY/RADIOGRAPHIC EVALUATION Patient had a CBC today and his white count is 16.3. Hemoglobin is 9.2. BMP was obtained today and his potassium is elevated at 5.7. Creatinine is increasing to 4.0. BUN is elevated at 60.0. ASSESSMENT 62-year-old gentleman status post cardiopulmonary arrest, septic shock, anuria, necrotizing soft tissue infection involving upper thoracic region of back. Patient with severe anoxic encephalopathy. PLAN Nursing staff informs me that family has decided at this time to withdraw support. I did not evaluate the patient's wound today given his current status. It is my intuition that the patient will likely succumb/pass away fairly quickly after withdrawal of support. JAMES
[2017-04-20 12:55] VITALS: TEMP 101.1
[2017-04-20 13:30] VITALS: O2SAT 100
[2017-04-20 14:16] VITALS: BP 120/56; PULSE 88; RESP 5
--- NOTE | 2017-04-20 14:19 | Death Note ---
Pronouncement Note - Date and Time of Date of : 04/20/17 Time of : 14:15 - PCOD Preliminary cause of : Cardiac arrest - Contributing Factors (3) Septic shock due to Gram positive bacteria Contributing factors: Posterior truncal abscess Acute renal failure Liver failure S/P code with anoxic brain injury (5) Acute respiratory failure requiring reintubation Contributing factors: COPD (8) Anuria Contributing factors: Septic shock - Additional Data Confirmation of : no pulse, no respirations, no heart sounds, pupils fixed and dilated Family: at bedside Attending/PCP notified?: Yes Attending physician: MD Kimberly Correa MD Was code activated?: No Autopsy requested?: No knitted cloth examiner notified?: No Organ bank notified?: Yes Advance directives: Yes
--- NOTE | 2017-04-20 14:27 | Death Note ---
Providers - Provider Primary care physician: Dr. Magdalena Plascencia Admitting clinician: Reji Tabor Attending Physician: Kimberly Turner Consults: 04/17/17 18:22 Physician Consult [CONS] Routine Consulting Provider: Reji Tabor Reason For Exam: PEA Ordering Provider has Notified Dance Hall Hostess: Yes 04/17/17 18:50 Physician Consult [CONS] Routine Consulting Provider: Afshin Allison Reason For Exam: poss nec fasc Ordering Provider has Notified Dance Hall Hostess: Yes 04/17/17 20:35 Dietary Consult [CONS] Routine Comment: Reason For Exam: 04/18/17 07:00 Physician Consult [CONS] Routine Consulting Provider: Afshin Ferreira Reason For Exam: Intubated Pt Ordering Provider has Notified Dance Hall Hostess: No Comment: alert 04/18 am Pronouncing clinician: Kimberly Turner Diagnosis - Contributing Factors (1) Successful cardiopulmonary resuscitation Status: Acute (2) Septic shock due to Gram positive bacteria Status: Chronic (3) Acute hyperkalemia Status: Acute (4) Acute respiratory failure requiring reintubation Status: Acute (5) Schizophrenia Status: Chronic (6) COPD exacerbation Status: Chronic (7) Anuria Status: Acute (8) Bilateral pneumonia Status: Acute (9) Coma scale, best motor response, none, 24 hours or more after hospital admission Status: Acute Summary - Date and Time Date of admission: 04/17/17 17:30 Date of : 04/20/17 Time of : 14:15 - Summary Details: The 62-year-old man was brought to the ICU status post code blue times 2 with successful resuscitation. The first one was at the [place] and down time is unknown. He was brought to the ED where he coded again. He was intubated. 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 CT of the head was benign despite some minor left temporal trauma. He arrived in the CCU unresponsive with pinned and fixed pupils, on dopamine and vasopressin. He was turned and found to have a abscess on his back with drainage. He had been on po antibiotics for a few days for this. Surgery was consulted and pt taken on 04/17/2017 for exploration of infected wound involving upper thoracic region of back with excisional surgical debridement of necrotic skin, subcutaneous tissues and a portion of fascia. Wound measuring 15 cm x 10 cm. HC report: Patent HDEZ to LAD and patent SVG to left PDA. Right coronary artery receives septal collaterals from LAD. Ramus intermedius has ostial proximal about 70-80% stenosis. Coronary anatomy appears chronic, no acute lesions noted. DONALD-3 flow noted in all vessel beds. Historically the patient is living in a prison at the age of 62 because he is a poorly compliant schizophrenic who was continuing to smoke at home despite being on oxygen. His family fearing for the dangers chronically poor judgment had placed him in nursing care. He is not been a smoker for many months now unless he has been secretly acquiring them. He does use 2 to 3 L reportedly by nasal cannula in the prison. Today, he continues to be unresponsive off sedation. He is intubated. Family is present and is planning on withdrawing care today. Family decided to withdraw care and was extubated at 1400. Pt was pronounced at 1415. - Additional Data Confirmation of as documented by pronouncing clinician: no pulse, no respirations, no heart sounds, pupils fixed and dilated Family: at bedside Attending/PCP notified?: Yes Attending physician: Reji Tabor MD Was code activated?: No Autopsy requested?: No branch examiner notified?: Yes Organ bank notified?: Yes Advance directives: Yes Hospice patient?: No
== END 2017-04-20 15:50 | disposition expired | DRG 853 ==
LOC: ED 15:14 → CCU 15:53
PROVIDERS: ADMIT Family Medicine; ATTEND Family Medicine